=== PATIENT | female | born 1965 | race Caucasian/White ===

== ENCOUNTER 2020-08-04 11:34 | Inpatient (IN) ==
[2020-08-04] MEDS ORDERED: ONDANSETRON INJ 2 MG/ML 2 ML VIAL IV STA ×2 (12:53→15:43)
[2020-08-04] MEDS ORDERED: SODIUM CHLORIDE 0.9% 1000ML 1,000 ML IV STA (12:53)
[2020-08-04] MEDS ORDERED: HYDROmorphone INJ 0.5 MG/0.5 ML SYR IV STA (12:53)
[2020-08-04 13:22] LABS: Alanine Aminotransferase 67 U/L (12-78); Albumin Level 4.1 gm/dl (3.4-5.0); Aspartate Aminotransferase 54 U/L (15-37); Blood Urea Nitrogen 12 mg/dl (7-18); Calcium 9.7 mg/dl (8.5-10.1); Carbon Dioxide 25 mmol/L (21-32); Chloride 105 mmol/L (98-107); Creatinine Clr Calc Pharmacy 165.4 ml/min; Est GFR (African American) 131.7; Est GFR (Non-African American) 113.6; Glucose 119 mg/dl (70-99); Potassium 3.6 mmol/L (3.5-5.1); Sodium 138 mmol/L (136-145)
[2020-08-04 13:23] LABS: Basophils # (auto) 0.02 K/uL (0-0.2); Basophils % (auto) 0.1 %; Eosinophils # (auto) 0.01 K/uL (0-0.5); Eosinophils % (auto) 0.1 %; Hematocrit (blood only) 47.3 % (37-47); Hemoglobin 15.4 g/dL (12.0-16.0); Immature Granulocytes # (auto) 0.06 K/uL (0.00-0.02); Immature Granulocytes % (auto) 0.4 %; Lymphocytes # (auto) 1.36 K/uL (1.2-3.4); Lymphocytes % (auto) 9.7 %; Mean Corpuscular Hemoglobin 26.6 pg (25-34); Mean Corpuscular Hgb Conc 32.6 g/dL (32-36); Mean Corpuscular Volume 81.8 fL (80-100); Mean Platelet Volume 9.7 fL (7.4-10.4); Monocytes # (auto) 0.53 K/uL (0.11-0.59); Monocytes % (auto) 3.8 %; Neutrophils % (auto) 85.9 %; Platelet Count 364 K/uL (130-400); RDW Coefficient of Variation 15.7 % (11.5-14.5); RDW Standard Deviation 46.7 fL (36.4-46.3); Red Blood Count 5.78 M/uL (4.2-5.4); White Blood Count 13.98 K/uL (4.8-10.8)
[2020-08-04 13:27] LABS: Albumin Globulin Ratio 1.1 (0.9-2); Alkaline Phosphatase 117 U/L (45-117); Bilirubin,Total 0.7 mg/dl (0.2-1); Globulin 3.8 gm/dl (2.5-4.0); Lipase 5566 U/L (73-393); Total Protein 7.9 gm/dl (6.4-8.2); Troponin I < 0.015 ng/ml (0-0.045)
[2020-08-04 13:49] LABS: Appearance Urine Clear (Clear); Bacteria Urine Automated Negative (Negative); Blood Urine 1+ (Negative); Color Urine Dark Yellow; Epithelial Cell Urine Auto >30 /lpf (0-5); Glucose Urine UA Negative (Negative); Ketones Urine 3+ (Negative); Leukocyte Esterase Urine Negative (Negative); Nitrite Urine Negative (Negative); Protein Urine 1+ (Negative); Specific Gravity Urine 1.028 (1.000-1.030); Urobilinogen Urine Negative (Negative); pH Urine 5.5 (4.5-7.5)
[2020-08-04 13:59] LABS: Bilirubin Urine 1+ (Negative)
--- NOTE | 2020-08-04 15:17 | Ultrasound Report ---
ABDOMINAL ULTRASOUND, RIGHT UPPER QUADRANT HISTORY: Epigastric pain. COMPARISON: None. FINDINGS: Pancreas: The pancreas demonstrates a normal echotexture. Liver: The liver is echogenic consistent with fatty change. Gallbladder: A few tiny stones and trace pericholecystic fluid. No significant gallbladder wall thick ening. A sonographic Wren's sign was unable to be assessed due to the patient's recent pain medicat ion. CBD: 1 cm. Right kidney: No hydronephrosis. IMPRESSION: 1. A few tiny gallstones and trace pericholecystic fluid. However, no gallbladder wall thickening. Th erefore, these findings are indeterminate for acute cholecystitis. 2. Dilated common bile duct up to 1 cm. This raises the possibility of an obstructive process. Consid er ERCP, MRCP or nuclear medicine HIDA scan for further evaluation. 3. Mild hepatic steatosis. ACT 112: Negative or not required by law. Electronically signed by: Paul Arredondo M.D. 08/04/2020 3:15 PM
[2020-08-04] MEDS ORDERED: OPTIRAY 300 100mL IV ONE (15:50)
--- NOTE | 2020-08-04 16:05 | CT Scan Report ---
CT SCAN OF THE ABDOMEN AND PELVIS WITH IV CONTRAST CLINICAL HISTORY: Acute pancreatitis. COMPARISON STUDY: Abdominal ultrasound dated 08/04/2020. TECHNIQUE: Following the IV administration of 89 cc of Optiray 300, CT scan of the abdomen and pelvi s is performed from the lung bases to the proximal femora. Images are reviewed in the axial, sagittal , and coronal planes. IV contrast was administered without complication. A dose lowering technique wa s utilized adhering to the principles of ALARA. The examination is degraded by large body habitus, an d by streak artifact from the body wall abutting the CT gantry. CT DOSE: 1411.46 mGy.cm FINDINGS: Lung bases: The heart is normal in size and without pericardial effusion. The lung bases are clear no ting dependent atelectasis. There is a tiny hiatal hernia. Liver: The contrast-enhanced liver is enlarged, measuring 22.2 cm in length. There is no intrahepatic biliary ductal dilatation. The hepatic veins and portal veins are patent. Gallbladder: The gallbladder is distended. There are tiny calcified gallstones. The gallbladder wall is thickened and edematous, and there is associated pericholecystic inflammation. Spleen: Normal in size and attenuation. Pancreas: There is mild atrophy of the pancreas. The pancreas is edematous, with peripancreatic stran ding and fluid. The appearance is consistent with acute pancreatitis. The gland enhances throughout. The duct is normal in caliber. The splenic vein is patent. No organized peripancreatic fluid collecti on is identified. Adrenal glands: Unremarkable. Kidneys: The contrast enhanced kidneys are normal in size and without hydronephrosis. The kidneys enh ance symmetrically. Abdominal vasculature: The abdominal aorta is normal in course and caliber noting scattered foci of a therosclerotic calcification. Bowel: No bowel obstruction is seen. There is mild colonic diverticulosis without CT evidence of acut e diverticulitis. The appendix is well-visualized and normal. Peritoneum: There is no intraperitoneal free air or abdominal ascites. There is a small fat-containin g umbilical hernia. Lymphadenopathy: None. Pelvic viscera: The bladder, uterus, and adnexa are normal as visualized. Skeletal structures: Mild degenerative change is noted in the lumbar spine. No lytic or blastic lesio ns are seen. IMPRESSION: 1. Findings are consistent with acute pancreatitis. 2. The pancreas enhances throughout and no organized peripancreatic fluid collection is identified. 3. Cholelithiasis with evidence of acute cholecystitis. 4. Hepatomegaly. 5. Mild colonic diverticulosis without CT evidence of acute diverticulitis. 6. Additional findings as above. ACT 112: Negative or not required by law. Electronically signed by: Miguel Ángel Llanes M.D. 08/04/2020 4:04 PM
[2020-08-04 16:33] LABS: Influenza A virus by PCR Negative (Neg); Influenza B virus by PCR Negative (Neg); RSV by PCR Negative (Neg); SARS CoV2 RNA(COVID-19) InHosp NEGATIVE (Negative)
[2020-08-04] MEDS ORDERED: ONDANSETRON INJ 2 MG/ML 2 ML VIAL IV PRN (17:55)
[2020-08-04] MEDS: LACTATED RINGER'S 1,000 ML IV SCH (18:19)
[2020-08-04] MEDS ORDERED: HYDROmorphone INJ 0.5 MG/0.5 ML SYR IV PRN (18:40)
[2020-08-04] MEDS ORDERED: PROMETHAZINE HCL 12.5 MG in SODIUM CHLORIDE 0.9% 50 ML IV PRN (20:19)
--- NOTE | 2020-08-04 20:52 | History & Physical Report ---
Date of Service August 04, 2020 Assessment & Plan (1) Gallstone pancreatitis: -admit to med/surg -patient presenting from home with reports of epigastric abdominal pain -in the ED, lipase 5000 and imaging showing dilated CBD, cholelithiasis, pancreatitis -Likely gallstone pancreatitis; no history of heavy alcohol use, patient does have history of dyslipidemia with statin intolerance. Check triglycerides in the morning -Mild elevation in AST, otherwise LFTs unremarkable -MRCP -IVF, n.p.o. -Pain and nausea control -GI consult, case discussed with Dr. Grant -General surgery consult (2) Hypertension: -BP controlled, continue atenolol (3) Hyperlipidemia: -With history of statin intolerance -Continue Zetia and Vascepa (4) DVT prophylaxis: -SCDs in the event patient needs invasive procedure Admission and Anticipated Discharge Date Admission Date: August 04, 2020 History of Present Illness Chief Complaint: Abdominal pain Primary Care Provider: Clinton Avilez MD 54-year-old female with PMH HTN, dyslipidemia, statin intolerance, and other problems listed below who presents to the ED for evaluation abdominal pain. Patient reports she woke up around 2 AM and had epigastric discomfort. [place] like her symptoms were due to indigestion or possibly constipation. Patient reports she took a stool softener without much relief in her symptoms. Epigastric pain continued throughout the day and started to radiate through into her back. She rates the pain as a #8/10. Describes the pain as a burning sensation and constant. She reports associated nausea however no vomiting. Reports a normal bowel movement this morning. No bright bleeding per rectum or dark tarry stools. Denies fevers and chills. No lightheadedness, dizziness, diaphoresis, syncopal events. Denies urinary symptoms. In the ED, labs show WBC 13 K, AST 54, lipase 5000. Gallbladder ultrasound shows 1 cm dilated CBD and evidence of gallstones. CT ABD/pelvis shows findings of pancreatitis and cholelithiasis. Patient was given IV Dilaudid, IV Zofran, IVF. Allergies Allergy/AdvReac Type Severity Reaction Status Date / Time Yryxuyj-Bte-Aue Reductase AdvReac Mild Cramping Verified 08/04/20 13:48 Inhibitor of the Muscles Home Medications Medication Instructions Recorded Confirmed Type albuterol sulfate [ProAir HFA] 1 inh INHALATION QID PRN 12/18/19 08/04/20 History amoxicillin 2,000 mg PO UD 12/18/19 08/04/20 History aspirin 81 mg PO QAM 12/18/19 08/04/20 History atenolol 25 mg PO HS 12/18/19 08/04/20 History ezetimibe [Zetia] 10 mg PO QDD 12/18/19 08/04/20 History famotidine 40 mg PO BID PRN 12/18/19 08/04/20 History furosemide 20 mg PO QAM 12/18/19 08/04/20 History icosapent ethyl 2 g PO BID 12/18/19 08/04/20 History potassium chloride 10 meq PO BID 12/18/19 08/04/20 History Past Med/Surg History Medical History (Updated 08/10/20 @ 00:06 by Sana Osorio) Acute pancreatitis Cholelithiasis Gallstone pancreatitis GERD (gastroesophageal reflux disease) Hiatal hernia Morbid obesity Osteoarthritis Surgical History History of total bilateral knee replacement (TKR) Hx of section Family History Mother Heart disease Father Heart disease Social History Smoking Status: Never smoker Second Hand Exposure: No; Hx Alcohol Use: Yes Alcohol type: beer, wine and hard liquor Alcohol Intake Frequency: 2-4 x/Month Hx Substance Use: No Preferred Language: Zambian Communication Ability: Effective Welfare Officer Required: No Beliefs That Will Affect Care: None Current Living Situation: Spouse Feels Safe at Home: Yes Assistive Devices: None Review of Systems Review of Systems: ROS per HPI, all other systems reviewed and negative Physical Exam Constitutional: WD/WN, vitals as above + obese Eyes: PERRL, conjunctivae normal, anicteric sclerae ENMT: external ear and nose normal, oropharynx normal Respiratory: normal respiratory effort, lungs clear to auscultation Cardiovascular: Rate/Rhythm: regular rate and regular rhythm Vessels: normal peripheral pulses Extremities: no edema Gastrointestinal (Abdomen): normal bowel sounds, soft, nontender, no hepatosplenomegaly Musculoskeletal: no cyanosis or clubbing, extremities motor strength 5/5 Skin: no rashes, warm and dry Neurologic: PERRL, EOMI, accommodation nl, no face palsy, no dysarthria Psychiatric: A+Ox3, euthymic affect Results & Data Results & Data ([facility]) Vital Signs (Past 12 Hours) Vital Signs Temp Pulse Pulse Resp BP BP Pulse Ox 08/04/20 17:40 36.4 C L 92 H 20 163/90 H 94 08/04/20 17:20 88 18 166/99 H 100 08/04/20 15:30 79 18 91 08/04/20 15:26 79 17 179/109 H 93 08/04/20 15:06 79 20 08/04/20 14:00 81 17 161/93 H 92 08/04/20 13:30 80 21 178/95 H 95 08/04/20 13:26 79 22 176/102 H 95 08/04/20 13:25 96 08/04/20 13:24 80 21 176/102 H 95 08/04/20 11:48 36.7 C 80 18 177/89 H 96 Laboratory Results Short CBC 08/04/20 Range/Units 12:11 WBC 13.98 H (4.8-10.8) K/uL Hgb 15.4 (12.0-16.0) g/dL Hct 47.3 H (37-47) % Plt Count 364 (130-400) K/uL BMP 08/04/20 12:11 Sodium 138 Potassium 3.6 Chloride 105 Carbon Dioxide 25 BUN 12 Creatinine 0.44 L Glucose 119 H Calcium 9.7 Cardiac Enzymes 08/04/20 Range/Units 12:11 Troponin I < 0.015 (0-0.045) ng/ml Liver Function 08/04/20 Range/Units 12:11 Total Bilirubin 0.7 (0.2-1) mg/dl AST 54 H (15-37) U/L ALT 67 (12-78) U/L Alkaline Phosphatase 117 (45-117) U/L Albumin 4.1 (3.4-5.0) gm/dl Urine 08/04/20 Range/Units 13:27 Urine Color Dark Yellow Urine Appearance Clear (Clear) Urine pH 5.5 (4.5-7.5) Ur Specific Elizabeth 1.028 (1.000-1.030) Urine Protein 1+ H (Negative) Urine Glucose (UA) Negative (Negative) Diagnostic Findings Gallbladder Ultrasound 08/04/20 13:04 ABDOMINAL ULTRASOUND, RIGHT UPPER QUADRANT HISTORY: Epigastric pain. COMPARISON: None. FINDINGS: Pancreas: The pancreas demonstrates a normal echotexture. Liver: The liver is echogenic consistent with fatty change. Gallbladder: A few tiny stones and trace pericholecystic fluid. No significant gallbladder wall thickening. A sonographic Wren's sign was unable to be assessed due to the patient's recent pain medication. CBD: 1 cm. Right kidney: No hydronephrosis. IMPRESSION: 1. A few tiny gallstones and trace pericholecystic fluid. However, no gallbladder wall thickening. Therefore, these findings are indeterminate for acute cholecystitis. 2. Dilated common bile duct up to 1 cm. This raises the possibility of an obstructive process. Consider ERCP, MRCP or nuclear medicine HIDA scan for further evaluation. 3. Mild hepatic steatosis. ACT 112: Negative or not required by law. Electronically signed by: Paul Arredondo M.D. 08/04/2020 3:15 PM Abdomen/Pelvis CT 08/04/20 15:36 CT SCAN OF THE ABDOMEN AND PELVIS WITH IV CONTRAST CLINICAL HISTORY: Acute pancreatitis. COMPARISON STUDY: Abdominal ultrasound dated 08/04/2020. TECHNIQUE: Following the IV administration of 89 cc of Optiray 300, CT scan of the abdomen and pelvis is performed from the lung bases to the proximal femora. Images are reviewed in the axial, sagittal, and coronal planes. IV contrast was administered without complication. A dose lowering technique was utilized adhering to the principles of ALARA. The examination is degraded by large body habitus, and by streak artifact from the body wall abutting the CT gantry. CT DOSE: 1411.46 mGy.cm FINDINGS: Lung bases: The heart is normal in size and without pericardial effusion. The lung bases are clear noting dependent atelectasis. There is a tiny hiatal hernia. Liver: The contrast-enhanced liver is enlarged, measuring 22.2 cm in length. There is no intrahepatic biliary ductal dilatation. The hepatic veins and portal veins are patent. Gallbladder: The gallbladder is distended. There are tiny calcified gallstones. The gallbladder wall is thickened and edematous, and there is associated lisa cholecystic inflammation. Spleen: Normal in size and attenuation. Pancreas: There is mild atrophy of the pancreas. The pancreas is edematous, with peripancreatic stranding and fluid. The appearance is consistent with acute pancreatitis. The gland enhances throughout. The duct is normal in caliber. The splenic vein is patent. No organized peripancreatic fluid collection is identified. Adrenal glands: Unremarkable. Kidneys: The contrast enhanced kidneys are normal in size and without hydronephrosis. The kidneys enhance symmetrically. Abdominal vasculature: The abdominal aorta is normal in course and caliber noting scattered foci of atherosclerotic calcification. Bowel: No bowel obstruction is seen. There is mild colonic diverticulosis without CT evidence of acute diverticulitis. The appendix is well-visualized and normal. Peritoneum: There is no intraperitoneal free air or abdominal ascites. There is a small fat-containing umbilical hernia. Lymphadenopathy: None. Pelvic viscera: The bladder, uterus, and adnexa are normal as visualized. Skeletal structures: Mild degenerative change is noted in the lumbar spine. No lytic or blastic lesions are seen. IMPRESSION: 1. Findings are consistent with acute pancreatitis. 2. The pancreas enhances throughout and no organized peripancreatic fluid collection is identified. 3. Cholelithiasis with evidence of acute cholecystitis. 4. Hepatomegaly. 5. Mild colonic diverticulosis without CT evidence of acute diverticulitis. 6. Additional findings as above. ACT 112: Negative or not required by law. Electronically signed by: Miguel Ángel Llanes M.D. 08/04/2020 4:04 PM Code Status & VTE Plan VTE Prophylaxis Plan VTE Prophylaxis will be ordered: Yes Supervising Physician Co-Signing Physician Notes Pt was seen and examined. Agreed with Maday exam, assessment and plan. 54-year-old female with PMH HTN, dyslipidemia presents to the ED for evaluation abdominal pain. Pt said that this morning she workup with epigastric discomfort. she described the pain as a burning sensation, constant and radiating to her back, grade 8/10. Denies fevers and chills, lightheadedness, dizziness, diaphoresis, syncopal events. Denies urinary symptoms. labs on admission with WBC 13 K, AST 54, lipase 5000. Gallbladder ultrasound on admission showed 1 cm dilated CBD and evidence of gallstones and CT ABD/pelvis shows findings of pancreatitis and cholelithiasis. Will continue IVF. Will keep NPO for bowel rest. Will consult Gastro. Will repeat lipase in am. Will monitor electrolytes. Continue monitor closely. MD Joselyn
--- NOTE | 2020-08-04 20:54 | Surgery Consultation ---
Date of Consultation August 04, 2020 Assessment & Plan (1) Gallstone pancreatitis: pt is a 54 year-old female who was admitted to hospital for gallstone pancreatitis, IMP: gallstone pancreatitis, Plan, recommend conservative treatment first, npo, IV fluid, iv antibiotic, control pain, repeat all labs in morning, consult GI doctor for possible ERCP, I recommend to do laparoscopic cholecystectomy on Saturday once lipase close to normal, pancreatitis resolved, pt will think about the surgery, will F/U, Present on Admission?: Yes History of Present Illness Attending Physician: Danielle Alves MD CC: abdominal pain, HPI: pt is a 54 year-old female who was admitted to hospital for gallstone pancreatitis, pt has been acute abdominal pain for 1 day with nausea, vomiting, the pain is located at epigastric area and back, the pain about 5/10, pt denies fever, no chills, no diarrhea, pt had CT scan and U/S study diagnosis- gallstone pancreatitis, Allergies Allergy/AdvReac Type Severity Reaction Status Date / Time Iwwmjpn-Qfy-Yin Reductase AdvReac Mild Cramping Verified 08/04/20 13:48 Inhibitor of the Muscles Home Medications Medication Instructions Recorded Confirmed Type albuterol sulfate [ProAir HFA] 1 inh INHALATION QID PRN 12/18/19 08/04/20 History amoxicillin 2,000 mg PO UD 12/18/19 08/04/20 History aspirin 81 mg PO QAM 12/18/19 08/04/20 History atenolol 25 mg PO HS 12/18/19 08/04/20 History ezetimibe [Zetia] 10 mg PO QDD 12/18/19 08/04/20 History famotidine 40 mg PO BID PRN 12/18/19 08/04/20 History furosemide 20 mg PO QAM 12/18/19 08/04/20 History icosapent ethyl 2 g PO BID 12/18/19 08/04/20 History potassium chloride 10 meq PO BID 12/18/19 08/04/20 History Patient History Medical History GERD (gastroesophageal reflux disease) Hiatal hernia Hyperlipidemia Hypertension Morbid obesity Osteoarthritis Surgical History History of total bilateral knee replacement (TKR) Hx of section Family History (Updated 08/04/20 @ 20:46 by DOUG Watson) Mother Heart disease Father Heart disease Social History (Updated 08/04/20 @ 20:47 by DOUG Watson) Smoking Status: Never smoker Second Hand Exposure: No; Do You Dip or Chew Tobacco: No; Tobacco Cessation Education Requested by Patient: No Hx Alcohol Use: Yes Alcohol type: beer, wine and hard liquor Alcohol Intake Frequency: 2-4 x/Month Hx Substance Use: No Preferred Language: Persian Communication Ability: Effective Application Lead Required: No Beliefs That Will Affect Care: None Current Living Situation: Spouse Other Information That Helps Us Care for You: No Feels Safe at Home: Yes Safety Concerns: Feels Safe At This Time Assistive Devices: Glasses Review of Systems Review of Systems: All systems reviewed & are unremarkable except as noted in HPI & below Constitutional: obesity Eyes: as per Subjective / HPI Ear, Nose, Mouth, Throat: as per Subjective / HPI Respiratory: as per Subjective / HPI Cardiovascular: as per Subjective / HPI Additional Comments: HTN Gastrointestinal: as per Subjective / HPI GERD, hiatal hernia Genitourinary: as per Subjective / HPI Musculoskeletal: as per Subjective / HPI Integumentary: as per Subjective / HPI Neurologic: as per Subjective / HPI Psychiatric: as per Subjective / HPI Endocrine: as per Subjective / HPI Hematologic / Lymphatic: as per Subjective / HPI Physical Exam Constitutional: WD/WN, vitals as above well developed and well nourished Eyes: PERRL, conjunctivae normal, anicteric sclerae ENMT: external ear and nose normal, oropharynx normal Neck: trachea midline, no thyromegaly Respiratory: normal respiratory effort, lungs clear to auscultation normal respiratory effort Cardiovascular: RRR, no murmur, no edema Rate/Rhythm: regular rate and regular rhythm Gastrointestinal (Abdomen): Percussion/Palpation: abdomen soft mild tenderness at epigastric and RUQ area, no rebound pain, no distend, Musculoskeletal: no cyanosis or clubbing, extremities motor strength 5/5 Skin: no rashes, warm and dry Neurologic: awake Psychiatric: Orientation: alert and oriented x 3 Results & Data ([facility]) Vital Signs (Past 12 Hours) Vital Signs Temp Pulse Pulse Resp BP BP Pulse Ox 08/04/20 17:40 36.4 C L 92 H 20 163/90 H 94 08/04/20 17:20 88 18 166/99 H 100 08/04/20 15:30 79 18 91 08/04/20 15:26 79 17 179/109 H 93 08/04/20 15:06 79 20 08/04/20 14:00 81 17 161/93 H 92 08/04/20 13:30 80 21 178/95 H 95 08/04/20 13:26 79 22 176/102 H 95 08/04/20 13:25 96 08/04/20 13:24 80 21 176/102 H 95 08/04/20 11:48 36.7 C 80 18 177/89 H 96 Laboratory Results Abnormal lab results 08/04/20 08/04/20 08/04/20 Range/Units 12:11 12:11 13:27 WBC 13.98 H (4.8-10.8) K/uL RBC 5.78 H (4.2-5.4) M/uL Hct 47.3 H (37-47) % RDW Std Deviation 46.7 H (36.4-46.3) fL RDW Coeff of Ce 15.7 H (11.5-14.5) % Neut # (Auto) 12.00 H (1.4-6.5) K/uL Immature Gran # (Auto) 0.06 H (0.00-0.02) K/uL Creatinine 0.44 L (0.6-1.2) mg/dl BUN/Creatinine Ratio 27.0 H (10-20) Glucose 119 H (70-99) mg/dl AST 54 H (15-37) U/L Lipase 5566 H (73-393) U/L Urine Protein 1+ H (Negative) Urine Ketones 3+ H (Negative) Urine Blood 1+ H (Negative) Urine Bilirubin 1+ H (Negative) Urine RBC (Auto) 10-30 H (0-4) /hpf U Epithel Cells (Auto) >30 H (0-5) /lpf Diagnostic Findings CT SCAN OF THE ABDOMEN AND PELVIS WITH IV CONTRAST CLINICAL HISTORY: Acute pancreatitis. COMPARISON STUDY: Abdominal ultrasound dated 08/04/2020. TECHNIQUE: Following the IV administration of 89 cc of Optiray 300, CT scan of the abdomen and pelvis is performed from the lung bases to the proximal femora. Images are reviewed in the axial, sagittal, and coronal planes. IV contrast was administered without complication. A dose lowering technique was utilized adhering to the principles of ALARA. The examination is degraded by large body habitus, and by streak artifact from the body wall abutting the CT gantry. CT DOSE: 1411.46 mGy.cm FINDINGS: Lung bases: The heart is normal in size and without pericardial effusion. The lung bases are clear noting dependent atelectasis. There is a tiny hiatal hernia. Liver: The contrast-enhanced liver is enlarged, measuring 22.2 cm in length. There is no intrahepatic biliary ductal dilatation. The hepatic veins and portal veins are patent. Gallbladder: The gallbladder is distended. There are tiny calcified gallstones. The gallbladder wall is thickened and edematous, and there is associated pericholecystic inflammation. Spleen: Normal in size and attenuation. Pancreas: There is mild atrophy of the pancreas. The pancreas is edematous, with peripancreatic stranding and fluid. The appearance is consistent with acute pancreatitis. The gland enhances throughout. The duct is normal in caliber. The splenic vein is patent. No organized peripancreatic fluid collection is identified. Adrenal glands: Unremarkable. Kidneys: The contrast enhanced kidneys are normal in size and without hyd ronephrosis. The kidneys enhance symmetrically. Abdominal vasculature: The abdominal aorta is normal in course and caliber noting scattered foci of atherosclerotic calcification. Bowel: No bowel obstruction is seen. There is mild colonic diverticulosis without CT evidence of acute diverticulitis. The appendix is well-visualized and normal. Peritoneum: There is no intraperitoneal free air or abdominal ascites. There is a small fat-containing umbilical hernia. Lymphadenopathy: None. Pelvic viscera: The bladder, uterus, and adnexa are normal as visualized. Skeletal structures: Mild degenerative change is noted in the lumbar spine. No lytic or blastic lesions are seen. IMPRESSION: 1. Findings are consistent with acute pancreatitis. 2. The pancreas enhances throughout and no organized peripancreatic fluid collection is identified. 3. Cholelithiasis with evidence of acute cholecystitis. 4. Hepatomegaly. 5. Mild colonic diverticulosis without CT evidence of acute diverticulitis. 6. Additional findings as above. ABDOMINAL ULTRASOUND, RIGHT UPPER QUADRANT HISTORY: Epigastric pain. COMPARISON: None. FINDINGS: Pancreas: The pancreas demonstrates a normal echotexture. Liver: The liver is echogenic consistent with fatty change. Gallbladder: A few tiny stones and trace pericholecystic fluid. No significant gallbladder wall thickening. A sonographic Wren's sign was unable to be assessed due to the patient's recent pain medication. CBD: 1 cm. Right kidney: No hydronephrosis. IMPRESSION: 1. A few tiny gallstones and trace pericholecystic fluid. However, no gallbl adder wall thickening. Therefore, these findings are indeterminate for acute cholecystitis. 2. Dilated common bile duct up to 1 cm. This raises the possibility of an obstructive process. Consider ERCP, MRCP or nuclear medicine HIDA scan for further evaluation. 3. Mild hepatic steatosis.
[2020-08-04] MEDS ORDERED: ICOSAPENT ETHYL 1 GM PO SCH (21:00)
[2020-08-04] MEDS: ATENOLOL 25 MG TABLET PO SCH (21:02)
--- NOTE | 2020-08-04 21:23 | Emergency Department Note ---
History of Present Illness General Chief complaint: GI Assessment Stated complaint: SEVERE UPPER ABD PAIN INTO BACK,NAUSEA Time Seen by Provider: 08/04/20 12:14 Source: patient Mode of arrival: ambulatory Limitations: no limitations History of Present Illness Provider complaint: Upper belly pain into back Maximum Pain Intensity: 5 This pt is a 54 yo female who presents to the ED with c/o epigastric abd pain that radiates through to her back. Pain began before bed last night, she took pepcid thinking it was her hiatal hernia. At 0200 pt woke up in significant pain, had several BMs thinking it must be constipation. Pt is on a keto diet, ate a low carb, high fat/protein dinner last night. She has lost 23 lbs in last 4 months. She denies fevers, diarrhea, vomiting, but admits to nausea. Denies h/o surgery on abdomen. Home Medications Medication Instructions Recorded Confirmed Type albuterol sulfate [ProAir HFA] 1 inh INHALATION QID PRN 12/18/19 08/04/20 History amoxicillin 2,000 mg PO UD 12/18/19 08/04/20 History aspirin 81 mg PO QAM 12/18/19 08/04/20 History atenolol 25 mg PO HS 12/18/19 08/04/20 History ezetimibe [Zetia] 10 mg PO QDD 12/18/19 08/04/20 History famotidine 40 mg PO BID PRN 12/18/19 08/04/20 History furosemide 20 mg PO QAM 12/18/19 08/04/20 History icosapent ethyl 2 g PO BID 12/18/19 08/04/20 History potassium chloride 10 meq PO BID 12/18/19 08/04/20 History Allergies Allergy/AdvReac Type Severity Reaction Status Date / Time Tvdhpmk-Djn-Yce Reductase AdvReac Mild Cramping Verified 08/04/20 13:48 Inhibitor of the Muscles Past Med/Surg History Medical History GERD (gastroesophageal reflux disease) Hiatal hernia Hyperlipidemia Hypertension Morbid obesity Osteoarthritis Surgical History History of total bilateral knee replacement (TKR) Hx of section Family History Mother Heart disease Father Heart disease Social History Smoking Status: Never smoker Second Hand Exposure: No; Do You Dip or Chew Tobacco: No; Tobacco Cessation Education Requested by Patient: No Hx Alcohol Use: Yes Alcohol type: beer, wine and hard liquor Alcohol Intake Frequency: 2-4 x/Month Hx Substance Use: No Preferred Language: Libyan Communication Ability: Effective Winter Sports Manager Required: No Beliefs That Will Affect Care: None Current Living Situation: Spouse Other Information That Helps Us Care for You: No Feels Safe at Home: Yes Safety Concerns: Feels Safe At This Time Assistive Devices: None Review of Systems See HPI for pertinent positives & negatives. and A total of 10 systems reviewed and were otherwise negative Physical Exam Vital Signs Vital Signs - 24 hr 08/04/20 11:48 08/04/20 13:24 08/04/20 13:25 Temperature 36.7 C Temperature Source Temporal Artery Scan Pulse Rate 80 80 Pulse Rate [Apical] Pulse Rate from SpO2 Sensor 80 Pulse Rhythm [Apical] Respiratory Rate 18 21 Respiratory Effort / Characteristics Non-Labored Spontaneous Respiratory Depth Normal Respiratory Pattern Regular Blood Pressure 177/89 H 176/102 H Blood Pressure [Left Arm] Blood Pressure Mean 118 126 Blood Pressure Mean [Left Arm] Blood Pressure Position Sitting Blood Pressure Position [Left Arm] Pulse Oximetry 96 95 96 Oxygen Delivery Method Room Air Room Air Sepsis Recent Fever Within 48 Hours No Sepsis New/Unexplained Change in Mental Status N/A Sepsis Action Taken by Nursing No Action Required 08/04/20 13:26 08/04/20 13:30 08/04/20 14:00 Temperature Temperature Source Pulse Rate 80 81 Pulse Rate [Apical] 79 Pulse Rate from SpO2 Sensor 79 81 Pulse Rhythm [Apical] Regular Respiratory Rate 22 21 17 Respiratory Effort / Characteristics Non-Labored Spontaneous Respiratory Depth Normal Respiratory Pattern Blood Pressure 178/95 H 161/93 H Blood Pressure [Left Arm] 176/102 H Blood Pressure Mean 122 115 Blood Pressure Mean [Left Arm] 126 Blood Pressure Position Blood Pressure Position [Left Arm] Lying Pulse Oximetry 95 95 92 Oxygen Delivery Method Room Air Sepsis Recent Fever Within 48 Hours Sepsis New/Unexplained Change in Mental Status Sepsis Action Taken by Nursing 08/04/20 15:06 08/04/20 15:26 08/04/20 15:30 Temperature Temperature Source Pulse Rate 79 79 79 Pulse Rate [Apical] Pulse Rate from SpO2 Sensor 80 80 Pulse Rhythm [Apical] Respiratory Rate 20 17 18 Respiratory Effort / Characteristics Respiratory Depth Respiratory Pattern Blood Pressure 179/109 H Blood Pressure [Left Arm] Blood Pressure Mean 132 Blood Pressure Mean [Left Arm] Blood Pressure Position Blood Pressure Position [Left Arm] Pulse Oximetry 93 91 Oxygen Delivery Method Sepsis Recent Fever Within 48 Hours Sepsis New/Unexplained Change in Mental Status Sepsis Action Taken by Nursing Vital signs reviewed. General: Well-appearing 54 yo female, in some discomfort, but in no significant distress. HEENT: No scleral icterus, PERRLA, neck supple. Atraumatic. Cardiovascular: Regular rate and rhythm, no extra sounds. Pulmonary: Clear to auscultation bilaterally, normal work of breathing. Abdomen: Soft, obese, tender to epigastric and RUQ, nondistended, positive bowel sounds. Minimal tympany to percussion. Musculoskeletal: Atraumatic, no peripheral edema. Neurologic: Patient awake alert and oriented x 3 Skin: Warm, dry, no rash Course Administered Medications Acetaminophen (Acetaminophen 325 Mg Tab) 650 mg PO Q4H PRN PRN Reason: pain/fever Stop: 09/03/20 17:54 Last Admin: 08/07/20 08:43 Dose: 650 mg Documented by: [id number] Admin: 08/06/20 15:58 Dose: 650 mg Documented by: [id number] Admin: 08/06/20 08:17 Dose: 650 mg Documented by: [id number] Admin: 08/05/20 23:59 Dose: 650 mg Documented by: [id number] Admin: 08/05/20 15:48 Dose: 650 mg Documented by: [id number] Admin: 08/05/20 07:36 Dose: 650 mg Documented by: [id number] Aspirin (Aspirin 81 Mg Ectab) 81 mg PO [facility] Stop: 09/04/20 08:59 Last Admin: 08/07/20 08:44 Dose: 81 mg Documented by: [id number] Admin: 08/06/20 08:17 Dose: 81 mg Documented by: [id number] Admin: 08/05/20 07:36 Dose: 81 mg Documented by: [id number] Atenolol (Atenolol 25 Mg Tablet) 25 mg PO [facility] Stop: 09/03/20 20:59 Last Admin: 08/06/20 22:12 Dose: 25 mg Documented by: [id number] Admin: 08/05/20 20:11 Dose: 25 mg Documented by: [id number] Admin: 08/04/20 21:02 Dose: 25 mg Documented by: [id number] Ezetimibe (Ezetimibe 10 Mg Tablet) 10 mg PO QDD [facility] Stop: 09/04/20 16:29 Last Admin: 08/06/20 16:27 Dose: 10 mg Documented by: [id number] Admin: 08/05/20 17:36 Dose: 10 mg Documented by: [id number] Heparin Sodium (Porcine) (Heparin Sod 5,000 Unit/0.5 Ml Vial) 5,000 units SQ Q8 [facility] Stop: 08/07/20 20:00 Last Admin: 08/07/20 13:43 Dose: 5,000 units Documented by: [id number] Admin: 08/07/20 06:06 Dose: 5,000 units Documented by: [id number] Admin: 08/06/20 22:13 Dose: 5,000 units Documented by: [id number] Admin: 08/06/20 11:16 Dose: 5,000 units Documented by: [id number] Hydromorphone HCl (Hydromorphone Inj 0.5 Mg/0.5 Ml Syr) 0.5 mg IV Q4H PRN PRN Reason: pain Stop: 08/18/20 18:39 Last Admin: 08/05/20 00:33 Dose: 0.5 mg Documented by: [id number] Lactated Ringer's (Lr) 1,000 mls @ 70 mls/hr IV .[id number] [facility] Stop: 09/03/20 18:14 Last Admin: 08/07/20 08:43 Dose: 70 mls/hr Documented by: [id number] Infusion: 08/07/20 08:43 Dose: 70 mls/hr Documented by: [id number] Admin: 08/07/20 03:38 Dose: 70 mls/hr Documented by: [id number] Infusion: 08/07/20 03:38 Dose: 70 mls/hr Documented by: [id number] Admin: 08/06/20 14:00 Dose: 70 mls/hr Documented by: [id number] Infusion: 08/06/20 12:21 Dose: 0 mls/hr Documented by: [id number] Admin: 08/06/20 02:21 Dose: 100 mls/hr Documented by: [id number] Infusion: 08/06/20 02:21 Dose: 100 mls/hr Documented by: [id number] Infusion: 08/05/20 20:03 Dose: 100 mls/hr Documented by: [id number] Admin: 08/05/20 17:37 Dose: 150 mls/hr Documented by: [id number] Infusion: 08/05/20 17:37 Dose: 150 mls/hr Documented by: [id number] Infusion: 08/05/20 12:00 Dose: 150 mls/hr Documented by: [id number] Infusion: 08/05/20 11:01 Dose: 0 mls/hr Documented by: [id number] Admin: 08/05/20 10:32 Dose: 200 mls/hr Documented by: [id number] Infusion: 08/05/20 10:32 Dose: 200 mls/hr Documented by: [id number] Admin: 08/05/20 05:32 Dose: 200 mls/hr Documented by: [id number] Infusion: 08/05/20 05:32 Dose: 200 mls/hr Documented by: [id number] Admin: 08/05/20 00:32 Dose: 200 mls/hr Documented by: [id number] Infusion: 08/04/20 23:19 Dose: 200 mls/hr Documented by: [id number] Admin: 08/04/20 18:19 Dose: 200 mls/hr Documented by: [id number] Promethazine HCl 12.5 mg/ (Sodium Chloride) 50.5 mls @ 202 mls/hr IV Q6H PRN PRN Reason: Nausea And Vomiting Stop: 09/03/20 20:18 Last Infusion: 08/04/20 21:59 Dose: 0 mls/hr Documented by: [id number] Admin: 08/04/20 21:03 Dose: 202 mls/hr Documented by: [id number] Piperacillin Sod/Tazobactam (Sod 4.5 gm/ Dextrose) 120 mls @ 30 mls/hr IV Q8H [facility]; Protocol Stop: 08/15/20 15:59 Last Infusion: 08/07/20 14:35 Dose: 0 mls/hr Documented by: [id number] Admin: 08/07/20 08:42 Dose: 30 mls/hr Documented by: [id number] Infusion: 08/07/20 04:40 Dose: 0 mls/hr Documented by: [id number] Admin: 08/07/20 00:18 Dose: 30 mls/hr Documented by: [id number] Infusion: 08/06/20 20:09 Dose: 0 mls/hr Documented by: [id number] Admin: 08/06/20 15:58 Dose: 30 mls/hr Documented by: [id number] Infusion: 08/06/20 12:31 Dose: 0 mls/hr Documented by: [id number] Admin: 08/06/20 08:18 Dose: 30 mls/hr Documented by: [id number] Infusion: 08/06/20 03:54 Dose: 0 mls/hr Documented by: [id number] Admin: 08/05/20 23:47 Dose: 30 mls/hr Documented by: [id number] Infusion: 08/05/20 20:04 Dose: 0 mls/hr Documented by: [id number] Admin: 08/05/20 15:50 Dose: 30 mls/hr Documented by: [id number] Ketorolac Tromethamine (Ketorolac Tromethamine 15 Mg/Ml Vial) 15 mg IV Q6H PRN PRN Reason: Pain Stop: 08/11/20 09:23 Last Admin: 08/07/20 14:40 Dose: 15 mg Documented by: [id number] Admin: 08/07/20 04:26 Dose: 15 mg Documented by: [id number] Admin: 08/06/20 18:18 Dose: 15 mg Documented by: [id number] Admin: 08/06/20 10:46 Dose: 15 mg Documented by: [id number] Miscellaneous (Icosapent Ethyl -- Order Awaiting Action) 1 ea N/A QS [facility]EN[facility]ICK Stop: 09/04/20 00:00 Last Admin: 08/07/20 08:27 Dose: Not Given Documented by: [id number] Admin: 08/07/20 01:12 Dose: Not Given Documented by: [id number] Admin: 08/06/20 15:42 Dose: Not Given Documented by: [id number] Admin: 08/06/20 11:51 Dose: Not Given Documented by: [id number] Admin: 08/06/20 00:02 Dose: Not Given Documented by: [id number] Admin: 08/05/20 15:49 Dose: Not Given Documented by: [id number] Admin: 08/05/20 07:34 Dose: Not Given Documented by: [id number] Admin: 08/05/20 00:33 Dose: Not Given Documented by: [id number] Ondansetron HCl (Ondansetron Inj 2 Mg/Ml 2 Ml Vial) 4 mg IV Q4H PRN PRN Reason: Nausea Stop: 09/03/20 18:39 Last Admin: 08/07/20 14:42 Dose: 4 mg Documented by: [id number] Admin: 08/07/20 04:28 Dose: 4 mg Documented by: [id number] Admin: 08/06/20 18:17 Dose: 4 mg Documented by: [id number] Admin: 08/06/20 08:17 Dose: 4 mg Documented by: [id number] Admin: 08/05/20 00:33 Dose: 4 mg Documented by: [id number] Discontinued Medications Hydromorphone HCl (Hydromorphone Inj 0.5 Mg/0.5 Ml Syr) 0.5 mg IV NOW STA Stop: 08/04/20 12:54 Last Admin: 08/04/20 13:44 Dose: 0.5 mg Documented by: [id number] Sodium Chloride (Nss 1000ml) 1,000 mls @ 125 mls/hr IV .Q8H STA Stop: 08/04/20 20:52 Last Infusion: 08/04/20 17:57 Dose: 0 mls/hr Documented by: [id number] Admin: 08/04/20 13:43 Dose: 125 mls/hr Documented by: [id number] Piperacillin Sod/Tazobactam (Sod 4.5 gm/ Dextrose) 120 mls @ 200 mls/hr IV NOW ONE; Protocol Stop: 08/05/20 10:50 Last Infusion: 08/05/20 11:55 Dose: 0 mls/hr Documented by: [id number] Admin: 08/05/20 11:01 Dose: 200 mls/hr Documented by: [id number] Ioversol (Optiray 300 100ml) 89 ml IV ONCE ONE Stop: 08/04/20 15:51 Last Admin: 08/04/20 15:51 Dose: 89 ml Documented by: [id number] Ondansetron HCl (Ondansetron Inj 2 Mg/Ml 2 Ml Vial) 4 mg IV NOW STA Stop: 08/04/20 12:54 Last Admin: 08/04/20 13:44 Dose: 4 mg Documented by: [id number] Ondansetron HCl (Ondansetron Inj 2 Mg/Ml 2 Ml Vial) 4 mg IV NOW STA Stop: 08/04/20 15:44 Last Admin: 08/04/20 15:47 Dose: 4 mg Documented by: [id number] Potassium Chloride (Potassium Chloride Crtab 20 Meq Tabcr) 40 meq PO NOW STA Stop: 08/05/20 10:08 Last Admin: 08/05/20 10:33 Dose: 40 meq Documented by: [id number] Potassium Chloride (Potassium Chloride 10 Meq Tabcr) 10 meq PO NOW STA Stop: 08/06/20 09:01 Last Admin: 08/06/20 11:15 Dose: 10 meq Documented by: [id number] Potassium Chloride (Potassium Chloride Crtab 20 Meq Tabcr) 20 meq PO NOW STA Stop: 08/06/20 09:01 Last Admin: 08/06/20 11:15 Dose: 20 meq Documented by: [id number] Potassium Chloride (Potassium Chloride Crtab 20 Meq Tabcr) 20 meq PO ONE ONE Stop: 08/07/20 10:16 Last Admin: 08/07/20 10:16 Dose: 20 meq Documented by: [id number] Medical Decision Making Differential Diagnosis Appendicitis, ovarian cyst, ovarian torsion, PID, infections, diverticulitis, UTI, obstruction, mesenteric ischemia, aortic pathology, inflammatory bowel disease, renal colic, PUD, pancreatitis, biliary pathology, hernia, volvulus, constipation, as well as other pathologies. Medical Records Attestation: I reviewed the patient's medical records. Home Medications Current Medication List: was personally reviewed by me Laboratory Data Attestation: I reviewed the patient's lab results. Result diagrams: 08/07/20 06:36 08/07/20 06:36 Lab Results 08/04/20 08/04/20 08/04/20 Range/Units 12:11 12:11 12:11 WBC 13.98 H (4.8-10.8) K/uL RBC 5.78 H (4.2-5.4) M/uL Hgb 15.4 (12.0-16.0) g/dL Hct 47.3 H (37-47) % MCV 81.8 (80-100) fL MCH 26.6 (25-34) pg MCHC 32.6 (32-36) g/dL RDW Std Deviation 46.7 H (36.4-46.3) fL RDW Coeff of Ce 15.7 H (11.5-14.5) % Plt Count 364 (130-400) K/uL MPV 9.7 (7.4-10.4) fL Immature Gran % (Auto) 0.4 % Neut % (Auto) 85.9 % Lymph % (Auto) 9.7 % Ritchie % (Auto) 3.8 % Eos % (Auto) 0.1 % Baso % (Auto) 0.1 % Neut # (Auto) 12.00 H (1.4-6.5) K/uL Lymph # (Auto) 1.36 (1.2-3.4) K/uL Ritchie # (Auto) 0.53 (0.11-0.59) K/uL Eos # (Auto) 0.01 (0-0.5) K/uL Baso # (Auto) 0.02 (0-0.2) K/uL Immature Gran # (Auto) 0.06 H (0.00-0.02) K/uL PT Cancelled INR Cancelled Sodium 138 (136-145) mmol/L Potassium 3.6 (3.5-5.1) mmol/L Chloride 105 (98-107) mmol/L Carbon Dioxide 25 (21-32) mmol/L Anion Gap 8.0 (3-11) BUN 12 (7-18) mg/dl Creatinine 0.44 L (0.6-1.2) mg/dl Est Cr Clr Drug Dosing 165.4 ml/min Est GFR ( Amer) 131.7 Est GFR (Non-Af Amer) 113.6 BUN/Creatinine Ratio 27.0 H (10-20) Glucose 119 H (70-99) mg/dl Lactate (0.4-2.0) mmol/L Calcium 9.7 (8.5-10.1) mg/dl Total Bilirubin 0.7 (0.2-1) mg/dl AST 54 H (15-37) U/L ALT 67 (12-78) U/L Alkaline Phosphatase 117 (45-117) U/L Troponin I < 0.015 (0-0.045) ng/ml Total Protein 7.9 (6.4-8.2) gm/dl Albumin 4.1 (3.4-5.0) gm/dl Globulin 3.8 (2.5-4.0) gm/dl Albumin/Globulin Ratio 1.1 (0.9-2) Lipase 5566 H (73-393) U/L Urine Color Urine Appearance (Clear) Urine pH (4.5-7.5) Ur Specific Haslet (1.000-1.030) Urine Protein (Negative) Urine Glucose (UA) (Negative) Urine Ketones (Negative) Urine Blood (Negative) Urine Nitrite (Negative) Urine Bilirubin (Negative) Urine Urobilinogen (Negative) Ur Leukocyte Esterase (Negative) Urine WBC (Auto) (0-5) /hpf Urine RBC (Auto) (0-4) /hpf U Hyaline Cast (Auto) (0-5) /lpf U Epithel Cells (Auto) (0-5) /lpf Urine Bacteria (Auto) (Negative) COVID-19 Eval Order SARS-CoV-2 (PCR) (Negative) Influenza Type A (PCR) (Neg) Influenza Type B (PCR) (Neg) RSV (RT-PCR) (Neg) 08/04/20 08/04/20 08/04/20 Range/Units 13:27 13:35 15:31 WBC (4.8-10.8) K/uL RBC (4.2-5.4) M/uL Hgb (12.0-16.0) g/dL Hct (37-47) % MCV (80-100) fL MCH (25-34) pg MCHC (32-36) g/dL RDW Std Deviation (36.4-46.3) fL RDW Coeff of Ce (11.5-14.5) % Plt Count (130-400) K/uL MPV (7.4-10.4) fL Immature Gran % (Auto) % Neut % (Auto) % Lymph % (Auto) % Ritchie % (Auto) % Eos % (Auto) % Baso % (Auto) % Neut # (Auto) (1.4-6.5) K/uL Lymph # (Auto) (1.2-3.4) K/uL Ritchie # (Auto) (0.11-0.59) K/uL Eos # (Auto) (0-0.5) K/uL Baso # (Auto) (0-0.2) K/uL Immature Gran # (Auto) (0.00-0.02) K/uL PT INR Sodium (136-145) mmol/L Potassium (3.5-5.1) mmol/L Chloride (98-107) mmol/L Carbon Dioxide (21-32) mmol/L Anion Gap (3-11) BUN (7-18) mg/dl Creatinine (0.6-1.2) mg/dl Est Cr Clr Drug Dosing ml/min Est GFR ( Amer) Est GFR (Non-Af Amer) BUN/Creatinine Ratio (10-20) Glucose (70-99) mg/dl Lactate 1.5 (0.4-2.0) mmol/L Calcium (8.5-10.1) mg/dl Total Bilirubin (0.2-1) mg/dl AST (15-37) U/L ALT (12-78) U/L Alkaline Phosphatase (45-117) U/L Troponin I (0-0.045) ng/ml Total Protein (6.4-8.2) gm/dl Albumin (3.4-5.0) gm/dl Globulin (2.5-4.0) gm/dl Albumin/Globulin Ratio (0.9-2) Lipase (73-393) U/L Urine Color Dark Yellow Urine Appearance Clear (Clear) Urine pH 5.5 (4.5-7.5) Ur Specific Haslet 1.028 (1.000-1.030) Urine Protein 1+ H (Negative) Urine Glucose (UA) Negative (Negative) Urine Ketones 3+ H (Negative) Urine Blood 1+ H (Negative) Urine Nitrite Negative (Negative) Urine Bilirubin 1+ H (Negative) Urine Urobilinogen Negative (Negative) Ur Leukocyte Esterase Negative (Negative) Urine WBC (Auto) 1-5 (0-5) /hpf Urine RBC (Auto) 10-30 H (0-4) /hpf U Hyaline Cast (Auto) 1-5 (0-5) /lpf U Epithel Cells (Auto) >30 H (0-5) /lpf Urine Bacteria (Auto) Negative (Negative) COVID-19 Eval Order CovFluRsv at [facility] SARS-CoV-2 (PCR) (Negative) Influenza Type A (PCR) (Neg) Influenza Type B (PCR) (Neg) RSV (RT-PCR) (Neg) 08/04/20 Range/Units 15:31 WBC (4.8-10.8) K/uL RBC (4.2-5.4) M/uL Hgb (12.0-16.0) g/dL Hct (37-47) % MCV (80-100) fL MCH (25-34) pg MCHC (32-36) g/dL RDW Std Deviation (36.4-46.3) fL RDW Coeff of Ce (11.5-14.5) % Plt Count (130-400) K/uL MPV (7.4-10.4) fL Immature Gran % (Auto) % Neut % (Auto) % Lymph % (Auto) % Ritchie % (Auto) % Eos % (Auto) % Baso % (Auto) % Neut # (Auto) (1.4-6.5) K/uL Lymph # (Auto) (1.2-3.4) K/uL Ritchie # (Auto) (0.11-0.59) K/uL Eos # (Auto) (0-0.5) K/uL Baso # (Auto) (0-0.2) K/uL Immature Gran # (Auto) (0.00-0.02) K/uL PT INR Sodium (136-145) mmol/L Potassium (3.5-5.1) mmol/L Chloride (98-107) mmol/L Carbon Dioxide (21-32) mmol/L Anion Gap (3-11) BUN (7-18) mg/dl Creatinine (0.6-1.2) mg/dl Est Cr Clr Drug Dosing ml/min Est GFR ( Amer) Est GFR (Non-Af Amer) BUN/Creatinine Ratio (10-20) Glucose (70-99) mg/dl Lactate (0.4-2.0) mmol/L Calcium (8.5-10.1) mg/dl Total Bilirubin (0.2-1) mg/dl AST (15-37) U/L ALT (12-78) U/L Alkaline Phosphatase (45-117) U/L Troponin I (0-0.045) ng/ml Total Protein (6.4-8.2) gm/dl Albumin (3.4-5.0) gm/dl Globulin (2.5-4.0) gm/dl Albumin/Globulin Ratio (0.9-2) Lipase (73-393) U/L Urine Color Urine Appearance (Clear) Urine pH (4.5-7.5) Ur Specific Haslet (1.000-1.030) Urine Protein (Negative) Urine Glucose (UA) (Negative) Urine Ketones (Negative) Urine Blood (Negative) Urine Nitrite (Negative) Urine Bilirubin (Negative) Urine Urobilinogen (Negative) Ur Leukocyte Esterase (Negative) Urine WBC (Auto) (0-5) /hpf Urine RBC (Auto) (0-4) /hpf U Hyaline Cast (Auto) (0-5) /lpf U Epithel Cells (Auto) (0-5) /lpf Urine Bacteria (Auto) (Negative) COVID-19 Eval Order SARS-CoV-2 (PCR) NEGATIVE (Negative) Influenza Type A (PCR) Negative (Neg) Influenza Type B (PCR) Negative (Neg) RSV (RT-PCR) Negative (Neg) Imaging Data Radiologist's Impression: Gallbladder Ultrasound 08/04/20 13:04 ABDOMINAL ULTRASOUND, RIGHT UPPER QUADRANT HISTORY: Epigastric pain. COMPARISON: None. FINDINGS: Pancreas: The pancreas demonstrates a normal echotexture. Liver: The liver is echogenic consistent with fatty change. Gallbladder: A few tiny stones and trace pericholecystic fluid. No significant gallbladder wall thickening. A sonographic Wren's sign was unable to be assessed due to the patient's recent pain medication. CBD: 1 cm. Right kidney: No hydronephrosis. IMPRESSION: 1. A few tiny gallstones and trace pericholecystic fluid. However, no gallbladder wall thickening. Therefore, these findings are indeterminate for acute cholecystitis. 2. Dilated common bile duct up to 1 cm. This raises the possibility of an obstructive process. Consider ERCP, MRCP or nuclear medicine HIDA scan for further evaluation. 3. Mild hepatic steatosis. ACT 112: Negative or not required by law. Electronically signed by: Paul Arredondo M.D. 08/04/2020 3:15 PM Abdomen/Pelvis CT 08/04/20 15:36 CT SCAN OF THE ABDOMEN AND PELVIS WITH IV CONTRAST CLINICAL HISTORY: Acute pancreatitis. COMPARISON STUDY: Abdominal ultrasound dated 08/04/2020. TECHNIQUE: Following the IV administration of 89 cc of Optiray 300, CT scan of the abdomen and pelvis is performed from the lung bases to the proximal femora. Images are reviewed in the axial, sagittal, and coronal planes. IV contrast was administered without complication. A dose lowering technique was utilized adhering to the principles of ALARA. The examination is degraded by large body habitus, and by streak artifact from the body wall abutting the CT gantry. CT DOSE: 1411.46 mGy.cm FINDINGS: Lung bases: The heart is normal in size and without pericardial effusion. The lung bases are clear noting dependent atelectasis. There is a tiny hiatal hernia. Liver: The contrast-enhanced liver is enlarged, measuring 22.2 cm in length. There is no intrahepatic biliary ductal dilatation. The hepatic veins and portal veins are patent. Gallbladder: The gallbladder is distended. There are tiny calcified gallstones. The gallbladder wall is thickened and edematous, and there is associated pericholecystic inflammation. Spleen: Normal in size and attenuation. Pancreas: There is mild atrophy of the pancreas. The pancreas is edematous, with peripancreatic stranding and fluid. The appearance is consistent with acute pancreatitis. The gland enhances throughout. The duct is normal in caliber. The splenic vein is patent. No organized peripancreatic fluid collection is identified. Adrenal glands: Unremarkable. Kidneys: The contrast enhanced kidneys are normal in size and without hydronephrosis. The kidneys enhance symmetrically. Abdominal vasculature: The abdominal aorta is normal in course and caliber noting scattered foci of atherosclerotic calcification. Bowel: No bowel obstruction is seen. There is mild colonic diverticulosis without CT evidence of acute diverticulitis. The appendix is well-visualized and normal. Peritoneum: There is no intraperitoneal free air or abdominal ascites. There is a small fat-containing umbilical hernia. Lymphadenopathy: None. Pelvic viscera: The bladder, uterus, and adnexa are normal as visualized. Skeletal structures: Mild degenerative change is noted in the lumbar spine. No lytic or blastic lesions are seen. IMPRESSION: 1. Findings are consistent with acute pancreatitis. 2. The pancreas enhances throughout and no organized peripancreatic fluid collection is identified. 3. Cholelithiasis with evidence of acute cholecystitis. 4. Hepatomegaly. 5. Mild colonic diverticulosis without CT evidence of acute diverticulitis. 6. Additional findings as above. ACT 112: Negative or not required by law. Electronically signed by: Miguel Ángel Llanes M.D. 08/04/2020 4:04 PM ECG Data Attestation: I personally reviewed and interpreted this ECG as follows: Indication: + abdominal pain Rate (beats per minute): 76 Rhythm: + normal sinus ECG Intervals/blocks: + Normal QRS and + Normal QT-c ECG [place]: + Normal ECG ST segments: + Normal ST segments ECG Findings: no PACs and no PVCs Comparison ECG Date: from (12/23/19) Change: no significant change Blood Pressure Blood Pressure Findings: Elevated blood pressure Blood Pressure Disposition: further management by hospitalist MDM Narrative This pt was evaluated and appeared to be in no distress. IV access was obtained and lab work was drawn. An order for cardiac monitoring was placed and the pt was noted to be in a NSR at 80 bpm. Pt was hydrated with NSS, given IV hydromorphone and zofran. US RUQ was significant for gallstones and CBD dilatation. CT imaging was ordered d/t lipase of 5566. This study is c/w acute pancreatitis. Case was d/w the hospitalist service who will evaluate the pt for admission, pt was made aware of the findings and plan and agreed. Impression & Plan Acute pancreatitis, Cholelithiasis Discharge Plan Visit Data Chief Complaint: GI Assessment Stated Complaint: SEVERE UPPER ABD PAIN INTO BACK,NAUSEA ED Provider: Jolie Hernandez Discharge Problem: Acute pancreatitis, Cholelithiasis Patient Disposition: Admitted As Inpatient Discharge Instructions Interventions: ED Discharge Assessment Last Done: 08/04/20 17:20 Discharge Problem: Acute pancreatitis Qualifiers: Pancreatitis type: biliary Acute pancreatitis complication: no infection or necrosis Qualified Code(s): K85.10 - Biliary acute pancreatitis without necrosis or infection Cholelithiasis Qualifiers: Cholelithiasis location: gallbladder Cholecystitis presence: without cholecystitis Biliary obstruction: without biliary obstruction Qualified Code(s): K80.20 - Calculus of gallbladder without cholecystitis without obstruction
[2020-08-05] MEDS: LACTATED RINGER'S 1,000 ML IV SCH ×4 (00:32→17:37)
[2020-08-05] MEDS: ONDANSETRON INJ 2 MG/ML 2 ML VIAL IV PRN (00:33)
[2020-08-05 06:33] LABS: Hematocrit (blood only) 42.5 % (37-47); Hemoglobin 13.8 g/dL (12.0-16.0); Mean Corpuscular Hemoglobin 26.8 pg (25-34); Mean Corpuscular Hgb Conc 32.5 g/dL (32-36); Mean Corpuscular Volume 82.7 fL (80-100); Mean Platelet Volume 9.6 fL (7.4-10.4); Platelet Count 332 K/uL (130-400); RDW Coefficient of Variation 15.8 % (11.5-14.5); RDW Standard Deviation 48.3 fL (36.4-46.3); Red Blood Count 5.14 M/uL (4.2-5.4); White Blood Count 13.16 K/uL (4.8-10.8)
[2020-08-05 06:48] LABS: Albumin Level 3.2 gm/dl (3.4-5.0); BUN Creatinine Ratio 20.6 (10-20); Calcium 8.8 mg/dl (8.5-10.1); Creatinine Clr Calc Pharmacy 169.2 ml/min; Est GFR (African American) 132.7; Est GFR (Non-African American) 114.5; Potassium 3.1 mmol/L (3.5-5.1)
[2020-08-05 06:51] LABS: Albumin Globulin Ratio 0.9 (0.9-2); Bilirubin,Total 0.6 mg/dl (0.2-1); Globulin 3.4 gm/dl (2.5-4.0); Total Protein 6.6 gm/dl (6.4-8.2)
[2020-08-05] MEDS: ASPIRIN 81 MG ECTAB PO SCH (07:36)
[2020-08-05] MEDS: ACETAMINOPHEN 325 MG TAB PO PRN ×3 (07:36→23:59)
--- NOTE | 2020-08-05 08:19 | Magnetic Resonance Report ---
MR MRCP HISTORY: Upper abdominal pain. gallstone pancreatitis TECHNIQUE: MRCP of the abdomen was performed without contrast according to standard departmental prot ocol. COMPARISON STUDY: Abdomen and pelvis CT 08/04/2020. FINDINGS: There is mild motion artifact. The lung bases are clear. The pancreas is edematous with mil d peripancreatic edema/fluid. Findings are consistent with acute pancreatitis. Mild perinephric edema which is likely reactive. No hydronephrosis. The adrenal glands unremarkable. No hepatic or splenic masses. No retroperitoneal lymphadenopathy. Normal caliber abdominal aorta. Pericholecystic fluid wit h a few punctate gallstones. Normal caliber common bile duct measuring up to 5 mm. No filling defects within the common bile duct to suggest a stone. The main pancreatic duct is suboptimally assessed du e to the motion artifact. However, the main pancreatic duct appears to be normal and course and calib er. No intrahepatic bile duct dilatation. IMPRESSION: 1. Acute pancreatitis. 2. A few small gallstones. There is also pericholecystic fluid. This could be reactive to the acute p ancreatitis or represent a developing acute cholecystitis. 3. Normal caliber common bile duct. No stones identified within the common bile duct. 4. The main pancreatic duct appears normal in course and caliber. ACT 112: Negative or not required by law. Electronically signed by: Paul Arredondo M.D. 08/05/2020 8:17 AM
--- NOTE | 2020-08-05 09:43 | Gastrointestinal Consultation ---
Date of Consultation August 05, 2020 Assessment & Plan (1) Gallstone pancreatitis: Pt is a 54 y/o female admitted w acute pancreatitis, suspect gallstone related. + cholelithiasis w cholecystitis w/o signs fo biliary obstruction (MRCP negative). - IVF hydration w LR. - May start CL diet today if no surgical intervention planned; for eventual goal to advance to low fat diet. If tolerating PO fluids well, may start to decrease LR rate. - Trend LFTs - Defer to Surgery on timing of cholecystectomy. Would recommend intra op cholangiogram be performed at time of cholecystectomy to r/o biliary obstruction related to gallstone - Will plan for outpt EUS in 4-6 week's time Supervising Physician Co-Signing Physician Notes I performed a history and physical examination of the patient today, including specifically on physical exam - soft abdomen. I have discussed the patient's management with the advanced practitioner. Please refer to the nurse practitioner's note for the documented findings and plan of care. Likely passed a CBD stone. Suggest Lap kyree with IOC. EUs as OP. Recall Gi if needed. History of Present Illness Reason for Consultation: Pancreatitis Requesting Physician: Dr. Danielle Alves Attending Physician: Dr. Pili Grant History of Present Illness Pt is a 54 y/o female who presented yesterday w c/o upper abd pain. She reports epigastric pain started 2AM 2 nights ago. Pain radiates to RUQ, back. Denies associated fever, chills, + mild nausea but no vomiting, no bowel habit changes. on eval, noted to have mild LFT elevation: Tbili 0.6, AST 54, ALT 67, Alk phos 113. Lipase up at over 5000s. Abdominal imaging studies (CT abd, u/s, MRCP) w signs of gallstone & cholecystitis, pancreatitis but normal caliber bile duct w/o filling defect. Pancreas duct also normal caliber TG 172. Denies tobacco, + social etoh use but none recently. Denies new meds or herbal supplements. Mother w hx of breast ca, Son w MS, no family hx of autoimmune pancreatitis or GI malignancies Allergies Allergy/AdvReac Type Severity Reaction Status Date / Time Abmmtiz-Dcm-Yoi Reductase AdvReac Mild Cramping Verified 08/04/20 13:48 Inhibitor of the Muscles Home Medications Medication Instructions Recorded Confirmed Type albuterol sulfate [ProAir HFA] 1 inh INHALATION QID PRN 12/18/19 08/04/20 History amoxicillin 2,000 mg PO UD 12/18/19 08/04/20 History aspirin 81 mg PO QAM 12/18/19 08/04/20 History atenolol 25 mg PO HS 12/18/19 08/04/20 History ezetimibe [Zetia] 10 mg PO QDD 12/18/19 08/04/20 History famotidine 40 mg PO BID PRN 12/18/19 08/04/20 History furosemide 20 mg PO QAM 12/18/19 08/04/20 History icosapent ethyl 2 g PO BID 12/18/19 08/04/20 History potassium chloride 10 meq PO BID 12/18/19 08/04/20 History Patient History Medical History GERD (gastroesophageal reflux disease) Hiatal hernia Hyperlipidemia Hypertension Morbid obesity Osteoarthritis Surgical History History of total bilateral knee replacement (TKR) Hx of section Family History Mother Heart disease Father Heart disease Social History Smoking Status: Never smoker Second Hand Exposure: No; Do You Dip or Chew Tobacco: No; Tobacco Cessation Education Requested by Patient: No Hx Alcohol Use: Yes Alcohol type: beer, wine and hard liquor Alcohol Intake Frequency: 2-4 x/Month Hx Substance Use: No Preferred Language: Danish Communication Ability: Effective Food Packer Required: No Beliefs That Will Affect Care: None Current Living Situation: Spouse Other Information That Helps Us Care for You: No Feels Safe at Home: Yes Safety Concerns: Feels Safe At This Time Assistive Devices: None Review of Systems Review of Systems: All systems reviewed & are unremarkable except as noted in HPI & below Physical Exam Constitutional: WD/WN, vitals as above well groomed, cooperative and comfortable Eyes: PERRL, conjunctivae normal, anicteric sclerae ENMT: external ear and nose normal, oropharynx normal Respiratory: normal respiratory effort, lungs clear to auscultation Cardiovascular: RRR, no murmur, no edema Gastrointestinal (Abdomen): Percussion/Palpation: + abdomen tender (RUQ, epigastric, LLQ ) and abdomen soft Skin: no rashes, warm and dry no jaundice Neurologic: Motor/Sensory: no asterixis Psychiatric: A+Ox3, euthymic affect Lymphatic: no lymphedema Results & Data ([facility]) Vital Signs (Past 12 Hours) Vital Signs Temp Pulse Resp BP Pulse Ox 08/05/20 06:54 37.2 C 88 18 134/82 95 08/04/20 22:06 36.9 C 93 H 16 169/81 H 94
[2020-08-05] MEDS ORDERED: PIPERACILL/TAZOBAC CONSULT ACTIVE PRN (10:04)
[2020-08-05] MEDS ORDERED: POTASSIUM CHLORIDE CRTAB 20 MEQ TABCR PO STA (10:07)
[2020-08-05] MEDS ORDERED: PIPERACILLIN/TAZOBACTAM 4.5 GM in DEXTROSE 5% 100 ML IV ONE (10:15)
[2020-08-05] MEDS ORDERED: PIPERACILLIN/TAZOBACTAM 3.375 GM in DEXTROSE 5% 100 ML IV SCH (10:15)
--- NOTE | 2020-08-05 11:50 | Surgery Progress Note ---
Date of Service August 05, 2020 Assessment & Plan (1) Gallstone pancreatitis: t. bili and lfts wnl. lipase down to 2,000 (5566 yesterday) MRCP negative for choledocholithiasis but possibly developing acute cholecystitis abdominal pain improved leukocytosis improved to 13k (15K) Plan: Given concern for possible cholecystitis will add IV Zosyn Patient would like to proceed with cholecystectomy. Will plan for Lap kyree with cholangiogram on Saturday with Dr. Guy. Will obtain consent prior. Trend LFTS and lipase okay for clear liquids advised to go slowly Per GI note, can decrease IV Fluids once taking PO liquids well OOB to chair and ambulate continue medical management Dr. Guy was present during my examination and agrees with above. Admission and Anticipated Discharge Date Admission Date: August 04, 2020 Subjective feeling better today still having abdominal pain in upper abdomen but improved would like to maybe have some liquids no n/v wants to proceed with gallbladder surgery Physical Exam Constitutional: WD/WN, vitals as above Respiratory: normal respiratory effort; no respiratory distress and no labored breathing Gastrointestinal (Abdomen): Inspection/Auscultation: abdomen normal to inspection; abdomen not distended Percussion/Palpation: + abdomen tender (upper abdomen) and abdomen soft; no guarding and abdomen not rigid Skin: no rashes, warm and dry Psychiatric: A+Ox3, euthymic affect Results & Data ([facility]) Vital Signs (Past 12 Hours) Vital Signs Temp Pulse Resp BP Pulse Ox 08/05/20 06:54 37.2 C 88 18 134/82 95 Laboratory Results 08/05/20 08/05/20 08/04/20 Range/Units 05:40 05:40 15:31 WBC 13.16 H (4.8-10.8) K/uL RBC 5.14 (4.2-5.4) M/uL Hgb 13.8 (12.0-16.0) g/dL Hct 42.5 (37-47) % MCV 82.7 (80-100) fL MCH 26.8 (25-34) pg MCHC 32.5 (32-36) g/dL RDW Std Deviation 48.3 H (36.4-46.3) fL RDW Coeff of Ce 15.8 H (11.5-14.5) % Plt Count 332 (130-400) K/uL MPV 9.6 (7.4-10.4) fL Immature Gran % (Auto) % Neut % (Auto) % Lymph % (Auto) % [place] % (Auto) % Eos % (Auto) % Baso % (Auto) % Neut # (Auto) (1.4-6.5) K/uL Lymph # (Auto) (1.2-3.4) K/uL [place] # (Auto) (0.11-0.59) K/uL Eos # (Auto) (0-0.5) K/uL Baso # (Auto) (0-0.2) K/uL Immature Gran # (Auto) (0.00-0.02) K/uL PT INR Sodium 140 (136-145) mmol/L Potassium 3.1 L (3.5-5.1) mmol/L Chloride 107 (98-107) mmol/L Carbon Dioxide 28 (21-32) mmol/L Anion Gap 6.0 (3-11) BUN 9 (7-18) mg/dl Creatinine 0.43 L (0.6-1.2) mg/dl Est Cr Clr Drug Dosing 169.2 ml/min Est GFR ( Amer) 132.7 Est GFR (Non-Af Amer) 114.5 BUN/Creatinine Ratio 20.6 H (10-20) Glucose 109 H (70-99) mg/dl Lactate (0.4-2.0) mmol/L Calcium 8.8 (8.5-10.1) mg/dl Total Bilirubin 0.6 (0.2-1) mg/dl AST 22 (15-37) U/L ALT 45 (12-78) U/L Alkaline Phosphatase 96 (45-117) U/L Troponin I (0-0.045) ng/ml Total Protein 6.6 (6.4-8.2) gm/dl Albumin 3.2 L (3.4-5.0) gm/dl Globulin 3.4 (2.5-4.0) gm/dl Albumin/Globulin Ratio 0.9 (0.9-2) Triglycerides 172 H (0-150) mg/dl Cholesterol 214 H (0-200) mg/dl LDL Cholesterol, Calc 129 mg/dl VLDL Cholesterol, Calc 34 mg/dl HDL Cholesterol 51 mg/dl Cholesterol/HDL Ratio 4 Lipase 2075 H (73-393) U/L Urine Color Urine Appearance (Clear) Urine pH (4.5-7.5) Ur Specific [place] (1.000-1.030) Urine Protein (Negative) Urine Glucose (UA) (Negative) Urine Ketones (Negative) Urine Blood (Negative) Urine Nitrite (Negative) Urine Bilirubin (Negative) Urine Urobilinogen (Negative) Ur Leukocyte Esterase (Negative) Urine WBC (Auto) (0-5) /hpf Urine RBC (Auto) (0-4) /hpf U Hyaline Cast (Auto) (0-5) /lpf U Epithel Cells (Auto) (0-5) /lpf Urine Bacteria (Auto) (Negative) COVID-19 Eval Order SARS-CoV-2 (PCR) NEGATIVE (Negative) Influenza Type A (PCR) Negative (Neg) Influenza Type B (PCR) Negative (Neg) RSV (RT-PCR) Negative (Neg) 08/04/20 08/04/20 08/04/20 Range/Units 15:31 13:35 13:27 WBC (4.8-10.8) K/uL RBC (4.2-5.4) M/uL Hgb (12.0-16.0) g/dL Hct (37-47) % MCV (80-100) fL MCH (25-34) pg MCHC (32-36) g/dL RDW Std Deviation (36.4-46.3) fL RDW Coeff of Ce (11.5-14.5) % Plt Count (130-400) K/uL MPV (7.4-10.4) fL Immature Gran % (Auto) % Neut % (Auto) % Lymph % (Auto) % [place] % (Auto) % Eos % (Auto) % Baso % (Auto) % Neut # (Auto) (1.4-6.5) K/uL Lymph # (Auto) (1.2-3.4) K/uL [place] # (Auto) (0.11-0.59) K/uL Eos # (Auto) (0-0.5) K/uL Baso # (Auto) (0-0.2) K/uL Immature Gran # (Auto) (0.00-0.02) K/uL PT INR Sodium (136-145) mmol/L Potassium (3.5-5.1) mmol/L Chloride (98-107) mmol/L Carbon Dioxide (21-32) mmol/L Anion Gap (3-11) BUN (7-18) mg/dl Creatinine (0.6-1.2) mg/dl Est Cr Clr Drug Dosing ml/min Est GFR ( Amer) Est GFR (Non-Af Amer) BUN/Creatinine Ratio (10-20) Glucose (70-99) mg/dl Lactate 1.5 (0.4-2.0) mmol/L Calcium (8.5-10.1) mg/dl Total Bilirubin (0.2-1) mg/dl AST (15-37) U/L ALT (12-78) U/L Alkaline Phosphatase (45-117) U/L Troponin I (0-0.045) ng/ml Total Protein (6.4-8.2) gm/dl Albumin (3.4-5.0) gm/dl Globulin (2.5-4.0) gm/dl Albumin/Globulin Ratio (0.9-2) Triglycerides (0-150) mg/dl Cholesterol (0-200) mg/dl LDL Cholesterol, Calc mg/dl VLDL Cholesterol, Calc mg/dl HDL Cholesterol mg/dl Cholesterol/HDL Ratio Lipase (73-393) U/L Urine Color Dark Yellow Urine Appearance Clear (Clear) Urine pH 5.5 (4.5-7.5) Ur Specific [place] 1.028 (1.000-1.030) Urine Protein 1+ H (Negative) Urine Glucose (UA) Negative (Negative) Urine Ketones 3+ H (Negative) Urine Blood 1+ H (Negative) Urine Nitrite Negative (Negative) Urine Bilirubin 1+ H (Negative) Urine Urobilinogen Negative (Negative) Ur Leukocyte Esterase Negative (Negative) Urine WBC (Auto) 1-5 (0-5) /hpf Urine RBC (Auto) 10-30 H (0-4) /hpf U Hyaline Cast (Auto) 1-5 (0-5) /lpf U Epithel Cells (Auto) >30 H (0-5) /lpf Urine Bacteria (Auto) Negative (Negative) COVID-19 Eval Order CovFluRsv at [facility] SARS-CoV-2 (PCR) (Negative) Influenza Type A (PCR) (Neg) Influenza Type B (PCR) (Neg) RSV (RT-PCR) (Neg) 08/04/20 08/04/20 08/04/20 Range/Units 12:11 12:11 12:11 WBC 13.98 H (4.8-10.8) K/uL RBC 5.78 H (4.2-5.4) M/uL Hgb 15.4 (12.0-16.0) g/dL Hct 47.3 H (37-47) % MCV 81.8 (80-100) fL MCH 26.6 (25-34) pg MCHC 32.6 (32-36) g/dL RDW Std Deviation 46.7 H (36.4-46.3) fL RDW Coeff of Ce 15.7 H (11.5-14.5) % Plt Count 364 (130-400) K/uL MPV 9.7 (7.4-10.4) fL Immature Gran % (Auto) 0.4 % Neut % (Auto) 85.9 % Lymph % (Auto) 9.7 % [place] % (Auto) 3.8 % Eos % (Auto) 0.1 % Baso % (Auto) 0.1 % Neut # (Auto) 12.00 H (1.4-6.5) K/uL Lymph # (Auto) 1.36 (1.2-3.4) K/uL [place] # (Auto) 0.53 (0.11-0.59) K/uL Eos # (Auto) 0.01 (0-0.5) K/uL Baso # (Auto) 0.02 (0-0.2) K/uL Immature Gran # (Auto) 0.06 H (0.00-0.02) K/uL PT Cancelled INR Cancelled Sodium 138 (136-145) mmol/L Potassium 3.6 (3.5-5.1) mmol/L Chloride 105 (98-107) mmol/L Carbon Dioxide 25 (21-32) mmol/L Anion Gap 8.0 (3-11) BUN 12 (7-18) mg/dl Creatinine 0.44 L (0.6-1.2) mg/dl Est Cr Clr Drug Dosing 165.4 ml/min Est GFR ( Amer) 131.7 Est GFR (Non-Af Amer) 113.6 BUN/Creatinine Ratio 27.0 H (10-20) Glucose 119 H (70-99) mg/dl Lactate (0.4-2.0) mmol/L Calcium 9.7 (8.5-10.1) mg/dl Total Bilirubin 0.7 (0.2-1) mg/dl AST 54 H (15-37) U/L ALT 67 (12-78) U/L Alkaline Phosphatase 117 (45-117) U/L Troponin I < 0.015 (0-0.045) ng/ml Total Protein 7.9 (6.4-8.2) gm/dl Albumin 4.1 (3.4-5.0) gm/dl Globulin 3.8 (2.5-4.0) gm/dl Albumin/Globulin Ratio 1.1 (0.9-2) Triglycerides (0-150) mg/dl Cholesterol (0-200) mg/dl LDL Cholesterol, Calc mg/dl VLDL Cholesterol, Calc mg/dl HDL Cholesterol mg/dl Cholesterol/HDL Ratio Lipase 5566 H (73-393) U/L Urine Color Urine Appearance (Clear) Urine pH (4.5-7.5) Ur Specific [place] (1.000-1.030) Urine Protein (Negative) Urine Glucose (UA) (Negative) Urine Ketones (Negative) Urine Blood (Negative) Urine Nitrite (Negative) Urine Bilirubin (Negative) Urine Urobilinogen (Negative) Ur Leukocyte Esterase (Negative) Urine WBC (Auto) (0-5) /hpf Urine RBC (Auto) (0-4) /hpf U Hyaline Cast (Auto) (0-5) /lpf U Epithel Cells (Auto) (0-5) /lpf Urine Bacteria (Auto) (Negative) COVID-19 Eval Order SARS-CoV-2 (PCR) (Negative) Influenza Type A (PCR) (Neg) Influenza Type B (PCR) (Neg) RSV (RT-PCR) (Neg)
--- NOTE | 2020-08-05 12:57 | Electrocardiogram Report ---
Test Reason : Blood Pressure : / mmHG Vent. Rate : 076 BPM Atrial Rate : 076 BPM P-R Int : 156 ms QRS Dur : 076 ms QT Int : 402 ms P-R-T Axes : 065 015 027 degrees QTc Int : 452 ms Normal sinus rhythm Normal ECG When compared with ECG of 23-DEC-2019 11:35, No significant change was found Confirmed by Dean Gloria ([id number]) on 08/05/2020 12:56:56 PM Referred By: REFERRED SELF Confirmed By:Dewayne Gloria
[2020-08-05] MEDS: PIPERACILLIN/TAZOBACTAM 4.5 GM in DEXTROSE 5% 100 ML IV SCH ×2 (15:50→23:47)
[2020-08-05] MEDS: EZETIMIBE 10 MG TABLET PO SCH (17:36)
--- NOTE | 2020-08-05 19:23 | Hospitalist Progress Note ---
Date of Service August 05, 2020 Assessment & Plan (1) Gallstone pancreatitis: Present on admission with abdominal pain Lipase [address] abd/pelvis showed findings that are consistent with acute pancreatitis. Gallbladder u/s showed a few tiny gallstones and trace pericholecystic fluid. However, no gallbladder wall thickening MRCP showed acute pancreatitis. A few small gallstones. There is also pericholecystic fluid. This could be reactive to the acute pancreatitis or represent a developing acute cholecystitis.Normal caliber common bile duct. No stones identified within the common bile duct. Lipase decreased from 5000 to 6 gastro on board recommended outpatient EUS Surgery on board plan for cholecystectomy on Saturday Starting on clear liquid diet Will decrease IVF Continue pain control Clinically improves (2) Hypertension: BP stable continue atenolol (3) Hyperlipidemia: With history of statin intolerance Continue Zetia and Vascepa (4) DVT prophylaxis: SCDs/ anticipate surgery on Saturday Will add DVT px for today and tomorrow Admission and Anticipated Discharge Date Admission Date: August 04, 2020 Subjective Pt was seen and examined for follow up of pancreatitis Sitting in bed with no distress watching TV Pt said that her abdominal pain is much better Denies ay chest pain, palpitation, dizziness and SOB Review of Systems Review of Systems: All systems reviewed & are unremarkable except as noted in Subjective Physical Exam Physical Exam: General- No acute distress Head- atraumatic Eyes- PERRL, EOMI, ENT- oropharynx clear Neck- supple, no JVD Lungs- clear to auscultation Heart- regular rhythm; no murmur Abdomen- normal bowel sounds, +mild tenderness with deep palpation Extremities- no calf tenderness Neuro- alert, oriented x 3; PERRL, EOMI; no facial palsy; no dysarthria Skin- warm & dry Results & Data Results & Data ([facility]) Vital Signs (Past 12 Hours) Vital Signs Temp Pulse Resp BP Pulse Ox 08/05/20 15:39 37.3 C 82 16 147/86 H 93
[2020-08-05] MEDS: ATENOLOL 25 MG TABLET PO SCH (20:11)
[2020-08-06] MEDS: LACTATED RINGER'S 1,000 ML IV SCH ×2 (02:21→14:00)
--- NOTE | 2020-08-06 06:14 | Surgery Progress Note ---
Date of Service August 06, 2020 Assessment & Plan (1) Gallstone pancreatitis: Patient is tentatively scheduled for cholecystectomy on 08/08/2020. Until surgery we will proceed in the following manner: Maintain the patient on clear liquids Maintain gentle hydration with IV fluids Continue analgesics Continue antiemetics Continue antibiotics in the form of Zosyn Patient has been seen by gastroenterology and there is no evidence of choledocholithiasis on MRCP. It is felt that patient could have potentially passed a common bile duct stone. GI has recommended an intraoperative cholangiogram be performed at time of cholecystectomy and are planning an endoscopic ultrasound on an outpatient basis several weeks after surgery. Admission and Anticipated Discharge Date Admission Date: August 04, 2020 Supervising Physician Co-Signing Physician Notes Patient seen and examined, labs reviewed, agree with above. 54-year-old female admitted with gallstone pancreatitis. She feels better than admission but still has some epigastric discomfort. She has some nausea and is not interested in her clear liquids. On exam she is afebrile stable vitals. Abdomen is soft, tender to palpation in the epigastrium without guarding or rebound. Labs with downtrending white blood cell count. Recommend continuing on clear liquids today as patient is still having symptomatic pancreatitis. Plan for laparoscopic cholecystectomy on Saturday with Dr. Guy. Subjective Patient notes some generalized abdominal pain which is greatest in the epigastric area. She denies any nausea or vomiting. She is currently taking clear liquids which are not exacerbating her abdominal pain. She has noted a bowel movement since admission to the hospital. Physical Exam Gastrointestinal (Abdomen): Patient's abdomen is soft and nondistended. There is minor tenderness noted with deep palpation of the epigastric area. There is no rebound tenderness or guarding. Results & Data ([facility]) Vital Signs (Past 12 Hours) Vital Signs Temp Pulse Resp BP Pulse Ox 08/06/20 03:53 131/77 08/06/20 02:22 37.1 C 146/85 H 08/05/20 23:28 37.6 C H 87 18 162/84 H 94 08/05/20 20:10 83 146/87 H 91 PG Care Time/CCT Total # of Minutes Spent Total Time Spent with Patient: Total time spent is greater than 50% in coordination of care (as documented) at patient's floor/unit and/or counseling patient: Coding Level of Care Code 04367 Subseq Hosp Care Lvl 1 Diagnoses Gallstone pancreatitis K85.10
[2020-08-06 06:46] LABS: Basophils # (auto) 0.02 K/uL (0-0.2); Basophils % (auto) 0.2 %; Eosinophils % (auto) 1.6 %; Hematocrit (blood only) 40.5 % (37-47); Hemoglobin 12.9 g/dL (12.0-16.0); Immature Granulocytes # (auto) 0.03 K/uL (0.00-0.02); Immature Granulocytes % (auto) 0.2 %; Lymphocytes # (auto) 2.21 K/uL (1.2-3.4); Lymphocytes % (auto) 17.1 %; Mean Corpuscular Hemoglobin 26.7 pg (25-34); Mean Corpuscular Hgb Conc 31.9 g/dL (32-36); Mean Corpuscular Volume 83.7 fL (80-100); Mean Platelet Volume 9.4 fL (7.4-10.4); Monocytes # (auto) 0.89 K/uL (0.11-0.59); Monocytes % (auto) 6.9 %; Neutrophils # (auto) 9.55 K/uL (1.4-6.5); Platelet Count 289 K/uL (130-400); RDW Standard Deviation 48.7 fL (36.4-46.3); Red Blood Count 4.84 M/uL (4.2-5.4)
[2020-08-06 07:15] LABS: Albumin Level 3.2 gm/dl (3.4-5.0); BUN Creatinine Ratio 16.4 (10-20); Calcium 8.7 mg/dl (8.5-10.1); Creatinine Clr Calc Pharmacy 220.5 ml/min; Est GFR (African American) 144.8; Est GFR (Non-African American) 124.9; Potassium 3.3 mmol/L (3.5-5.1)
[2020-08-06 07:18] LABS: Albumin Globulin Ratio 0.9 (0.9-2); Bilirubin,Total 0.7 mg/dl (0.2-1); Globulin 3.4 gm/dl (2.5-4.0); Total Protein 6.6 gm/dl (6.4-8.2)
[2020-08-06] MEDS: ONDANSETRON INJ 2 MG/ML 2 ML VIAL IV PRN ×2 (08:17→18:17)
[2020-08-06] MEDS: ASPIRIN 81 MG ECTAB PO SCH (08:17)
[2020-08-06] MEDS: ACETAMINOPHEN 325 MG TAB PO PRN ×2 (08:17→15:58)
[2020-08-06] MEDS: PIPERACILLIN/TAZOBACTAM 4.5 GM in DEXTROSE 5% 100 ML IV SCH ×2 (08:18→15:58)
[2020-08-06] MEDS ORDERED: POTASSIUM CHLORIDE CRTAB 20 MEQ TABCR PO STA (09:00)
[2020-08-06] MEDS ORDERED: POTASSIUM CHLORIDE 10 MEQ TABCR PO STA (09:00)
[2020-08-06] MEDS: KETOROLAC TROMETHAMINE 15 MG/ML VIAL IV PRN ×2 (10:46→18:18)
[2020-08-06] MEDS: HEPARIN SOD 5,000 UNIT/0.5 ML VIAL SQ SCH ×2 (11:16→22:13)
[2020-08-06] MEDS: EZETIMIBE 10 MG TABLET PO SCH (16:27)
--- NOTE | 2020-08-06 19:33 | Hospitalist Progress Note ---
Date of Service August 06, 2020 Assessment & Plan (1) Gallstone pancreatitis: Present on admission with abdominal pain Lipase [address] abd/pelvis showed findings that are consistent with acute pancreatitis. Gallbladder u/s showed a few tiny gallstones and trace pericholecystic fluid. However, no gallbladder wall thickening MRCP showed acute pancreatitis. A few small gallstones. There is also pericholecystic fluid. This could be reactive to the acute pancreatitis or represent a developing acute cholecystitis.Normal caliber common bile duct. No stones identified within the common bile duct. Lipase decreased from 5000 to 2075->381 gastro on board recommended outpatient EUS Surgery on board plan for cholecystectomy on Saturday Tolerated clear liquid diet Continue gentle hydration Continue pain control Clinically improves (2) Hypertension: BP stable continue atenolol (3) Hyperlipidemia: With history of statin intolerance Continue Zetia Ok to hold Vascepa since our pharmacy does not have it in stock and pt is unable to drop it (4) DVT prophylaxis: SCDs/ anticipate surgery on Saturday On heparin subq for now Admission and Anticipated Discharge Date Admission Date: August 04, 2020 Subjective Pt was seen and examined for follow up of pancreatitis Lying in bed with no distress watching TV She was started on clear liquid diet and tolerated well Denies any chest pain, palpitatio, dizziness and SOB Review of Systems Review of Systems: All systems reviewed & are unremarkable except as noted in Subjective Physical Exam Physical Exam: General- No acute distress Head- atraumatic Eyes- PERRL, EOMI, ENT- oropharynx clear Neck- supple, no JVD Lungs- clear to auscultation Heart- regular rhythm; no murmur Abdomen- normal bowel sounds, +mild tenderness with deep palpation Extremities- no calf tenderness Neuro- alert, oriented x 3; PERRL, EOMI; no facial palsy; no dysarthria Skin- warm & dry Results & Data Results & Data ([facility]) Vital Signs (Past 12 Hours) Vital Signs Temp Pulse Resp BP Pulse Ox 08/06/20 16:16 37.0 C 86 18 174/98 H 95 08/06/20 07:36 37.4 C 85 18 154/90 H 92
[2020-08-06] MEDS: ATENOLOL 25 MG TABLET PO SCH (22:12)
[2020-08-07] MEDS: PIPERACILLIN/TAZOBACTAM 4.5 GM in DEXTROSE 5% 100 ML IV SCH ×4 (00:18→23:56)
[2020-08-07] MEDS: LACTATED RINGER'S 1,000 ML IV SCH ×3 (03:38→22:48)
[2020-08-07] MEDS: KETOROLAC TROMETHAMINE 15 MG/ML VIAL IV PRN ×3 (04:26→22:49)
[2020-08-07] MEDS: ONDANSETRON INJ 2 MG/ML 2 ML VIAL IV PRN ×3 (04:28→22:49)
[2020-08-07] MEDS: HEPARIN SOD 5,000 UNIT/0.5 ML VIAL SQ SCH ×2 (06:06→13:43)
--- NOTE | 2020-08-07 06:08 | Surgery Progress Note ---
Date of Service August 07, 2020 Assessment & Plan (1) Gallstone pancreatitis: Cholecystectomy is planned for 08/08/2020, which is tomorrow. Will continue care in the following manner: Maintain the patient on clear liquids, making her n.p.o. at midnight tonight Continue hydration with IV fluids Continue analgesics Continue antiemetics Continue antibiotics in the form of Zosyn GI input noted: They recommended intraoperative cholangiogram at time of cholecystectomy Endoscopic ultrasound is being planned as an outpatient following recovery from surgery Further recommendations were made based on her operative findings as well as recovery from planned surgery Admission and Anticipated Discharge Date Admission Date: August 04, 2020 Supervising Physician Co-Signing Physician Notes Patient seen and examined, labs reviewed, agree with above. 54-year-old female admitted with gallstone pancreatitis. She feels better than yesterday but still has some epigastric discomfort and is very hungry. On exam she is afebrile stable vitals. Abdomen is soft, less tender to palpation than yesterday in the epigastrium without guarding or rebound. Labs with downtrending white blood cell count. Continue clear liquids, n.p.o. after midnight. Plan for laparoscopic cholecystectomy on Saturday with Dr. Guy. Subjective Patient reports some intermittent nausea. She continues to have some minor epigastric pain as noted previously but this is not worse. She denies any fevers, shakes, chills. She denies having a bowel movement over the past 24 hours. Physical Exam Constitutional: well developed and well nourished; no acute distress Gastrointestinal (Abdomen): Abdomen is soft and nondistended. Bowel sounds are present. There is no rebound tenderness or guarding. Patient did have some minor pain with deep palpation in the epigastric area. Results & Data ([facility]) Vital Signs (Past 12 Hours) Vital Signs Temp Pulse Resp BP Pulse Ox 08/06/20 23:01 36.9 C 77 14 149/93 H 93 PG Care Time/CCT Total # of Minutes Spent Total Time Spent with Patient: Total time spent is greater than 50% in coordination of care (as documented) at patient's floor/unit and/or counseling patient: Coding Level of Care Code 80305 Subseq Hosp Care Lvl 1 Diagnoses Gallstone pancreatitis K85.10
[2020-08-07 07:19] LABS: Basophils # (auto) 0.03 K/uL (0-0.2); Basophils % (auto) 0.3 %; Eosinophils # (auto) 0.29 K/uL (0-0.5); Eosinophils % (auto) 2.4 %; Hematocrit (blood only) 38.5 % (37-47); Hemoglobin 12.6 g/dL (12.0-16.0); Immature Granulocytes # (auto) 0.04 K/uL (0.00-0.02); Immature Granulocytes % (auto) 0.3 %; Lymphocytes # (auto) 2.09 K/uL (1.2-3.4); Lymphocytes % (auto) 17.5 %; Mean Corpuscular Hemoglobin 27.2 pg (25-34); Mean Corpuscular Hgb Conc 32.7 g/dL (32-36); Mean Platelet Volume 9.4 fL (7.4-10.4); Monocytes # (auto) 0.77 K/uL (0.11-0.59); Monocytes % (auto) 6.4 %; Neutrophils # (auto) 8.73 K/uL (1.4-6.5); Neutrophils % (auto) 73.1 %; Platelet Count 282 K/uL (130-400); RDW Coefficient of Variation 15.7 % (11.5-14.5); RDW Standard Deviation 47.9 fL (36.4-46.3); Red Blood Count 4.64 M/uL (4.2-5.4); White Blood Count 11.95 K/uL (4.8-10.8)
[2020-08-07 07:36] LABS: BUN Creatinine Ratio 16.5 (10-20); Calcium 8.9 mg/dl (8.5-10.1); Creatinine Clr Calc Pharmacy 220.5 ml/min; Est GFR (African American) 144.8; Est GFR (Non-African American) 124.9; Potassium 3.4 mmol/L (3.5-5.1)
[2020-08-07 07:39] LABS: Albumin Globulin Ratio 0.8 (0.9-2); Bilirubin,Total 0.7 mg/dl (0.2-1); Globulin 3.6 gm/dl (2.5-4.0); Total Protein 6.6 gm/dl (6.4-8.2)
[2020-08-07] MEDS: ACETAMINOPHEN 325 MG TAB PO PRN (08:43)
[2020-08-07] MEDS: ASPIRIN 81 MG ECTAB PO SCH (08:44)
[2020-08-07] MEDS ORDERED: POTASSIUM CHLORIDE CRTAB 20 MEQ TABCR PO ONE (10:15)
--- NOTE | 2020-08-07 12:12 | Hospitalist Progress Note ---
Date of Service August 07, 2020 Assessment & Plan (1) Gallstone pancreatitis: Present on admission with abdominal pain Lipase [address] abd/pelvis showed findings that are consistent with acute pancreatitis. Gallbladder u/s showed a few tiny gallstones and trace pericholecystic fluid. However, no gallbladder wall thickening MRCP showed acute pancreatitis. A few small gallstones. There is also pericholecystic fluid. This could be reactive to the acute pancreatitis or represent a developing acute cholecystitis.Normal caliber common bile duct. No stones identified within the common bile duct. Lipase decreased from 5000 to 2075->381--> 173 gastro on board recommended outpatient EUS Surgery on board plan for cholecystectomy on Saturday Tolerated clear liquid diet Will make NPO after midnight Continue gentle hydration Continue pain control Clinically improves (2) Hypertension: BP stable continue atenolol (3) Hyperlipidemia: With history of statin intolerance Continue Zetia Ok to hold Vascepa since our pharmacy does not have it in stock and pt is unable to drop it Hypokalemia Potassium 3.4 K replaced Continue monitor BMP (4) DVT prophylaxis: SCDs/ anticipate surgery on Saturday On heparin subq for now Admission and Anticipated Discharge Date Admission Date: August 04, 2020 Subjective Pt was seen and examined for follow up of pancreatitis Lying in bed with no distress She tolerated clear liquid diet She said that she has mild tenderness in her abdomen Denies any chest pain, palpitatio, dizziness and SOB Review of Systems Review of Systems: All systems reviewed & are unremarkable except as noted in Subjective Physical Exam Physical Exam: General- No acute distress Head- atraumatic Eyes- PERRL, EOMI, ENT- oropharynx clear Neck- supple, no JVD Lungs- clear to auscultation Heart- regular rhythm; no murmur Abdomen- normal bowel sounds, +mild tenderness with deep palpation Extremities- no calf tenderness Neuro- alert, oriented x 3; PERRL, EOMI; no facial palsy; no dysarthria Skin- warm & dry Results & Data Results & Data ([facility]) Vital Signs (Past 12 Hours) Vital Signs Temp Pulse Resp BP Pulse Ox 08/07/20 07:43 36.9 C 82 18 138/75 94
[2020-08-07] MEDS: EZETIMIBE 10 MG TABLET PO SCH (16:37)
[2020-08-07] MEDS: ATENOLOL 25 MG TABLET PO SCH (20:43)
--- NOTE | 2020-08-08 07:29 | Anesthesiology Consultation ---
Date of Service August 08, 2020 Assessment & Plan (1) Encounter for pre-operative examination: Chart Review Chart Review: Acceptable Risk for Surgery and Patient NOT seen in Pre Admission Testing Consults Requested none History Surgery Operation Date: 08/08/20 10:25 Proposed Procedures p Laparoscopic Cholecystectomy - Marquis Guy MD Height/Weight Height: 5 ft 1 in Weight: 109.6 kg Allergies Allergy/AdvReac Type Severity Reaction Status Date / Time [id number]-Kfr-Ext Reductase AdvReac Mild Cramping Verified 08/04/20 13:48 Inhibitor of the Muscles Medications Home Medications Medication Instructions Recorded Confirmed Last Taken albuterol sulfate [ProAir HFA] 1 inh INHALATION QID PRN 12/18/19 08/04/20 Unknown amoxicillin 2,000 mg PO UD 12/18/19 08/04/20 10/27/18 aspirin 81 mg PO QAM 12/18/19 08/04/20 08/04/20 atenolol 25 mg PO HS 12/18/19 08/04/20 08/03/20 ezetimibe [Zetia] 10 mg PO QDD 12/18/19 08/04/20 08/03/20 famotidine 40 mg PO BID PRN 12/18/19 08/04/20 08/03/20 21:30 furosemide 20 mg PO QAM 12/18/19 08/04/20 08/04/20 icosapent ethyl 2 g PO BID 12/18/19 08/04/20 08/04/20 potassium chloride 10 meq PO BID 12/18/19 08/04/20 08/04/20 Active Medications Generic Name Dose Route Start Last Admin Trade Name Freq PRN Reason Stop Dose Admin Acetaminophen 650 mg 08/04/20 17:55 08/07/20 08:43 Acetaminophen 325 Mg Tab PO 09/03/20 17:54 650 mg Q4H PRN Administration pain/fever Aspirin 81 mg 08/05/20 09:00 08/07/20 08:44 Aspirin 81 Mg Ectab PO 09/04/20 08:59 81 mg QAM KENDRICK Administration Atenolol 25 mg 08/04/20 21:00 08/07/20 20:43 Atenolol 25 Mg Tablet PO 09/03/20 20:59 25 mg HS KENDRICK Administration Ezetimibe 10 mg 08/05/20 16:30 08/07/20 16:37 Ezetimibe 10 Mg Tablet PO 09/04/20 16:29 10 mg QDD KENDRICK Administration Hydromorphone HCl 0.5 mg 08/04/20 18:40 08/05/20 00:33 Hydromorphone Inj 0.5 Mg/0.5 Ml Syr IV 08/18/20 18:39 0.5 mg Q4H PRN Administration pain Lactated Ringer's 1,000 mls @ 70 mls/hr 08/04/20 18:15 08/07/20 22:48 Lr IV 09/03/20 18:14 70 mls/hr .[id number] KENDRICK Administration Promethazine HCl 12.5 mg/ 50.5 mls @ 202 mls/hr 08/04/20 20:19 08/04/20 21:59 Sodium Chloride IV 09/03/20 20:18 Infused Q6H PRN Infusion Nausea And Vomiting Piperacillin Sod/Tazobactam 120 mls @ 30 mls/hr 08/05/20 16:00 08/08/20 04:15 Sod 4.5 gm/ Dextrose IV 08/15/20 15:59 Infused Q8H KENDRICK Infusion Protocol Ketorolac Tromethamine 15 mg 08/06/20 09:24 08/07/20 22:49 Ketorolac Tromethamine 15 Mg/Ml Vial IV 08/11/20 09:23 15 mg Q6H PRN Administration Pain Miscellaneous 1 ea 08/05/20 00:00 08/08/20 00:19 Icosapent Ethyl -- Order Awaiting Action N/A 09/04/20 00:00 Not Given QS KENDRICK Ondansetron HCl 4 mg 08/04/20 18:40 08/07/20 22:49 Ondansetron Inj 2 Mg/Ml 2 Ml Vial IV 09/03/20 18:39 4 mg Q4H PRN Administration Nausea Past Medical History Medical History (Updated 08/08/20 @ 07:33 by Paul Hassan MD) Gallstone pancreatitis GERD (gastroesophageal reflux disease) Hiatal hernia Hyperlipidemia Hypertension Morbid obesity Osteoarthritis Past Family History Family History Mother Heart disease Father Heart disease Past Surgical History Surgical History History of total bilateral knee replacement (TKR) Hx of section Social History Smoking Status: Never smoker Do You Dip or Chew Tobacco: No Hx Alcohol Use: Yes Alcohol type: beer, wine and hard liquor alcohol intake frequency: holidays/special occasions only Hx Substance Use: No substance use type: does not use Physical Exam Vital Signs Last Vital Signs Temp 36.9 C 08/07/20 22:11 Pulse 71 08/07/20 22:11 Resp 16 08/07/20 22:11 BP 128/83 08/07/20 22:11 Pulse Ox 94 08/07/20 22:11 Testing Laboratory Results 08/07/20 06:36 08/07/20 06:36 PT Cancelled 08/04/20 12:11 INR Cancelled 08/04/20 12:11 Urine Color Dark Yellow 08/04/20 13:27 Urine Appearance Clear (Clear) 08/04/20 13:27 Urine pH 5.5 (4.5-7.5) 08/04/20 13:27 Ur Specific [place] 1.028 (1.000-1.030) 08/04/20 13:27 Urine Protein 1+ (Negative) H 08/04/20 13:27 Urine Glucose (UA) Negative (Negative) 08/04/20 13:27 Urine Ketones 3+ (Negative) H 08/04/20 13:27 Urine Nitrite Negative (Negative) 08/04/20 13:27 Ur Leukocyte Esterase Negative (Negative) 08/04/20 13:27 Urine WBC (Auto) 1-5 /hpf (0-5) 08/04/20 13:27 Urine RBC (Auto) 10-30 /hpf (0-4) H 08/04/20 13:27 U Hyaline Cast (Auto) 1-5 /lpf (0-5) 08/04/20 13:27 U Epithel Cells (Auto) >30 /lpf (0-5) H 08/04/20 13:27 Urine Bacteria (Auto) Negative (Negative) 08/04/20 13:27 Electrocardiogram Date: 08/04/20 Findings: + NSR @ (76) Echocardiogram Date: 07/21/19 EF: 55-59 LV Function: normal Other Findings: + LVH (moderate concentric) Valvular Disease: + no significant valvular disease Stress Test Date: 07/21/19 Type: DSE Findings: + WNL Other Testing CT SCAN OF THE ABDOMEN AND PELVIS WITH IV CONTRAST CLINICAL HISTORY: Acute pancreatitis. COMPARISON STUDY: Abdominal ultrasound dated 08/04/2020. TECHNIQUE: Following the IV administration of 89 cc of Optiray 300, CT scan of the abdomen and pelvis is performed from the lung bases to the proximal femora. Images are reviewed in the axial, sagittal, and coronal planes. IV contrast was administered without complication. A dose lowering technique was utilized adhering to the principles of ALARA. The examination is degraded by large body habitus, and by streak artifact from the body wall abutting the CT gantry. CT DOSE: 1411.46 mGy.cm FINDINGS: Lung bases: The heart is normal in size and without pericardial effusion. The lung bases are clear noting dependent atelectasis. There is a tiny hiatal hernia. Liver: The contrast-enhanced liver is enlarged, measuring 22.2 cm in length. There is no intrahepatic biliary ductal dilatation. The hepatic veins and portal veins are patent. Gallbladder: The gallbladder is distended. There are tiny calcified gallstones. The gallbladder wall is thickened and edematous, and there is associated pericholecystic inflammation. Spleen: Normal in size and attenuation. Pancreas: There is mild atrophy of the pancreas. The pancreas is edematous, with peripancreatic stranding and fluid. The appearance is consistent with acute pancreatitis. The gland enhances throughout. The duct is normal in caliber. The splenic vein is patent. No organized peripancreatic fluid collection is identified. Adrenal glands: Unremarkable. Kidneys: The contrast enhanced kidneys are normal in size and without hydronephrosis. The kidneys enhance symmetrically. Abdominal vasculature: The abdominal aorta is normal in course and caliber noting scattered foci of atherosclerotic calcification. Bowel: No bowel obstruction is seen. There is mild colonic diverticulosis without CT evidence of acute diverticulitis. The appendix is well-visualized and normal. Peritoneum: There is no intraperitoneal free air or abdominal ascites. There is a small fat-containing umbilical hernia. Lymphadenopathy: None. Pelvic viscera: The bladder, uterus, and adnexa are normal as visualized. Skeletal structures: Mild degenerative change is noted in the lumbar spine. No lytic or blastic lesions are seen. IMPRESSION: 1. Findings are consistent with acute pancreatitis. 2. The pancreas enhances throughout and no organized peripancreatic fluid collection is identified. 3. Cholelithiasis with evidence of acute cholecystitis. 4. Hepatomegaly. 5. Mild colonic diverticulosis without CT evidence of acute diverticulitis. 6. Additional findings as above. ACT 112: Negative or not required by law. Electronically signed by: Miguel Ángel Llanes M.D. 08/04/2020 4:04 PM Dictated: 08/04/20 1558Transcribed: 08/04/20 1558
[2020-08-08] MEDS: PIPERACILLIN/TAZOBACTAM 4.5 GM in DEXTROSE 5% 100 ML IV SCH ×3 (08:42→23:08)
[2020-08-08 08:46] LABS: Basophils # (auto) 0.04 K/uL (0-0.2); Basophils % (auto) 0.4 %; Eosinophils # (auto) 0.33 K/uL (0-0.5); Eosinophils % (auto) 3.4 %; Hematocrit (blood only) 39.2 % (37-47); Hemoglobin 12.3 g/dL (12.0-16.0); Immature Granulocytes # (auto) 0.03 K/uL (0.00-0.02); Immature Granulocytes % (auto) 0.3 %; Lymphocytes # (auto) 1.82 K/uL (1.2-3.4); Lymphocytes % (auto) 18.9 %; Mean Corpuscular Hemoglobin 26.2 pg (25-34); Mean Corpuscular Hgb Conc 31.4 g/dL (32-36); Mean Corpuscular Volume 83.4 fL (80-100); Mean Platelet Volume 9.4 fL (7.4-10.4); Monocytes # (auto) 0.63 K/uL (0.11-0.59); Monocytes % (auto) 6.6 %; Neutrophils # (auto) 6.76 K/uL (1.4-6.5); Neutrophils % (auto) 70.4 %; Platelet Count 319 K/uL (130-400); RDW Coefficient of Variation 15.6 % (11.5-14.5); RDW Standard Deviation 47.7 fL (36.4-46.3); White Blood Count 9.61 K/uL (4.8-10.8)
[2020-08-08] MEDS: ASPIRIN 81 MG ECTAB PO SCH (09:01)
[2020-08-08 09:20] LABS: Albumin Level 2.9 gm/dl (3.4-5.0); BUN Creatinine Ratio 12.2 (10-20); Calcium 9.1 mg/dl (8.5-10.1); Creatinine Clr Calc Pharmacy 186.6 ml/min; Est GFR (Non-African American) 118.2; Potassium 3.5 mmol/L (3.5-5.1)
[2020-08-08 09:22] LABS: Albumin Globulin Ratio 0.8 (0.9-2); Bilirubin,Total 0.6 mg/dl (0.2-1); Globulin 3.8 gm/dl (2.5-4.0); Total Protein 6.7 gm/dl (6.4-8.2)
[2020-08-08] MEDS ORDERED: fentaNYL citrate 100 MCG/2 ML VIAL ONE ×2 (10:22→12:53)
[2020-08-08] MEDS ORDERED: LIDOCAINE HCL 2% 2 ML VIAL/AMP(20MG/ML) INFIL ONE (10:22)
[2020-08-08] MEDS ORDERED: MIDAZOLAM HCL 1 MG/ML 2ML VIAL ONE (10:22)
[2020-08-08] MEDS ORDERED: PROPOFOL IV EMULSION 10 MG/ML 20 ML VIAL IV ONE (10:22)
[2020-08-08] MEDS ORDERED: ROCURONIUM BROMIDE 10 MG/ML 5 ML VIAL IV ONE ×3 (10:22→13:14)
[2020-08-08] MEDS ORDERED: LIDOCAINE HCL 1% 20 ML VIAL ONE (11:05)
[2020-08-08] MEDS ORDERED: BACITRACIN OINT 15 GM TUBE ONE (11:05)
[2020-08-08] MEDS ORDERED: BUPIVACAINE 0.5 % 5 MG/1 ML MPF 30ML VIAL ONE (11:05)
[2020-08-08] MEDS ORDERED: ceFAZolin 2000MG 2,000 MG/15 ML SYR IV ONE ×2 (11:14→11:20)
[2020-08-08] MEDS ORDERED: ceFAZolin 2,000 MG/15 ML IV PUSH IV ONE (11:18)
--- NOTE | 2020-08-08 11:19 | History & Physical Bridge Note ---
Date of Service August 08, 2020 History & Physical Bridge Note I have examined the patient, reviewed the History & Physical and in the interval since the performance of the History & Physical I have noted the following changes of clinical significance: no changes noted I did D/W benefits, risks and alternatives of the laparoscopic cholecystectomy, possible open or cholangiogram, the risks- infection, bleeding injury CBD, bowel, IN, pt understood, she agrees with the surgery, I answered all questions, Supervising Physician Co-Signing Physician Notes Patient seen and examined, labs reviewed, agree with above. 54-year-old female admitted with gallstone pancreatitis. She feels better than yesterday but still has some epigastric discomfort and is very hungry. On exam she is afebrile stable vitals. Abdomen is soft, less tender to palpation than yesterday in the epigastrium without guarding or rebound. Labs with downtrending white blood cell count. Continue clear liquids, n.p.o. after midnight. Plan for laparoscopic cholecystectomy on Saturday with Dr. Guy.
[2020-08-08] MEDS ORDERED: SCOPOLAMINE 1 MG TDSY TD ONE ×3 (11:21→11:40)
[2020-08-08] MEDS ORDERED: ePHEDrine sulfate 50 MG/ML AMP IV PRN (11:23)
[2020-08-08] MEDS ORDERED: PROMETHAZINE HCL 12.5 MG in SODIUM CHLORIDE 0.9% 50 ML IV PRN (11:23)
[2020-08-08] MEDS ORDERED: ATROPINE SULFATE 0.1 MG/ML 10ML SYR IV PRN (11:23)
[2020-08-08] MEDS ORDERED: ONDANSETRON INJ 2 MG/ML 2 ML VIAL IV PRN (11:23)
[2020-08-08] MEDS ORDERED: METOCLOPRAMIDE HCL INJ 5 MG/ML 2 ML VIAL ONE (12:13)
--- NOTE | 2020-08-08 13:24 | Post Operative Brief Note ---
Immediate Post Op Note v1 Date of Surgery August 08, 2020 Pre & Post Diagnosis Operation Date: 08/08/20 10:25 Pre-Op Diagnosis: PANCREATITIS, acute cholecystitis, cholelithiasis, Post-Op Diagnosis: PANCREATITIS, acute cholecystitis, cholelithiasis I identified the patient and participated in the time-out.: Yes Procedure Operation Date: 08/08/20 10:25 Actual Procedures p Laparoscopic Cholecystectomy(Not Applicable) - Marquis Guy MD Surgeon Marquis Guy MD Promotions Assistant KEYSHA Bobby Estimated Blood Loss 10 Findings Consistent with Post-Op Diagnosis Fluids 800ml Specimens gallbladder and lymph node Anesthesia Type General Complications none Disposition Accompanied Patient To Recovery: Yes Disposition: Recovery Room Overlapping Procedure I was immediately available: during the entire case.
[2020-08-08] MEDS: fentaNYL citrate 100 MCG/2 ML VIAL IV PRN ×2 (14:33→14:38)
[2020-08-08] MEDS ORDERED: AMOXICILLIN 500 MG CAP PO SCH (15:30)
[2020-08-08] MEDS ORDERED: FAMOTIDINE 40 MG TABLET PO PRN (15:30)
[2020-08-08] MEDS ORDERED: ALBUTEROL HFA 8 GM INHALER INH PRN (15:37)
--- NOTE | 2020-08-08 15:37 | Anesthesiology Progress Note ---
Date of Service August 08, 2020 Anesthesia Post Procedure Vital Signs Vital Signs: Temp Pulse Pulse Resp BP BP Pulse Ox 08/08/20 15:05 36.6 C 82 15 161/91 H 96 08/08/20 14:55 36.6 C 81 15 158/89 H 94 08/08/20 14:45 36.6 C 84 15 162/91 H 96 08/08/20 14:35 85 15 153/88 H 93 08/08/20 14:25 85 16 166/105 H 94 08/08/20 14:15 81 16 175/98 H 98 08/08/20 14:05 84 16 166/100 H 98 08/08/20 13:55 84 18 182/94 H 99 08/08/20 13:49 36.3 C L 84 16 165/93 H 98 08/08/20 10:55 36.9 C 79 18 155/99 H 95 08/08/20 07:45 37.1 C 79 18 139/86 93 08/07/20 22:11 36.9 C 71 16 128/83 94 08/07/20 20:43 77 16 170/92 H Pain Intensity Upper Medial Abdomen: Pain Intensity: 4 Transfer of Care Handoff Completed per policy Notes Mental Status: alert / awake / arousable and participated in evaluation Patient Amnestic to Procedure: Yes Nausea / Vomiting: adequately controlled Pain: adequately controlled Airway Patency, RR, SpO2: stable & adequate BP & HR: stable & adequate Hydration State: stable & adequate Anesthetic Complications: no major complications apparent and Pt Satisfied with anesthetic care
[2020-08-08] MEDS: LACTATED RINGER'S 1,000 ML IV SCH (15:48)
--- NOTE | 2020-08-08 16:31 | Operative Report (OR) ---
DATE OF OPERATION: 08/08/2020 PREOPERATIVE DIAGNOSES: Acute cholecystitis with cholelithiasis. POSTOPERATIVE DIAGNOSES: Acute cholecystitis with cholelithiasis. OPERATION: Laparoscopic cholecystectomy. SURGEON: Marquis Guy MD. SENIOR TECHNICAL BUSINESS ANALYST: Irish Estrada PA-C. ANESTHESIA: General. ESTIMATED BLOOD LOSS: About 10 mL. FINDINGS: Acute cholecystitis with cholelithiasis, significant inflammation on the gallbladder wall. COMPLICATIONS: None. INDICATIONS FOR THE PROCEDURE: This is a 54-year-old female who was admitted to hospital for acute cholecystitis, cholelithiasis. I recommended to do laparoscopic cholecystectomy, possible open, possible cholangiogram. I did talk to the patient about the benefit, the risk, alternate procedure. I indicated the risks may include but not limited such as bleeding, infection, injury to common bile duct, injury to the bowel, incisional hernia. The patient understands. She signed informed consent and I answered all questions. DETAILS OF PROCEDURE: After we identified the patient and verified the procedure, we brought the patient to the OR, put the patient in the supine position on the OR table. The patient received SCD on bilateral legs to prevent DVT. Also, patient received 2 grams Ancef IV for prophylactic antibiotic. The patient received general anesthesia without difficulty. Abdomen was prepped and draped in routine sterile fashion. After timeout, I injected the local anesthesia by using 1% lidocaine mixed with 0.5% Marcaine just above the umbilicus. Then I made a small incision just above the umbilicus, opened fascia and opened peritoneum under direct vision, put a Susan trocar in, connected to CO2 to create pneumoperitoneum. Flow rate was 6 liter per minute. Pressure not more than 14 mmHg. Once we got a nice pneumoperitoneum, we put the camera in, looked around the abdomen, shows normal finding on the liver. However, the gallbladder shows significant inflammation on the gallbladder wall, gallbladder wall thickening, edema, confirmed diagnosis of acute cholecystitis. Then, we put another two 5 mm trocars on the right upper quadrant, one was 11 trocar on the epigastric area. Once all trocars in, we used a grasper to hold the base of gallbladder, put in the direction to the diaphragm, another grasper to hold the pouch of gallbladder, put lateral to expunge the triangle of [place]ot. The cystic duct was identified and mobilized. I put two 10 mm metal clips on the proximal cystic duct, one on the distal cystic duct, then used a scissor for transection of cystic duct. Rechecked, no active bleeding, no bile leak. The cystic artery was identified and mobilized. I put two 10 mm metal clips on the proximal cystic artery, one on the distal cystic artery, then used a scissor for transection of cystic artery. Rechecked, no active bleeding. Then we used the Bovie to take down gallbladder from the liver bed. Rechecked and no active bleeding, no bile leak from liver bed. Then we removed gallbladder through the catch bag. Then we reinserted Susan trocar in, connected to CO2 to create pneumoperitoneum, again looked around the abdomen, no active bleeding, no bile leak from the liver bed. Then we removed all trocar under direct vision. No active bleeding from the trocar sites. Pneumoperitoneum was released, now closed the umbilical incision, the fascial layer by using 0 Vicryl [id number] x2, closed subcutaneous layer by using 2-0 Vicryl interruptedly, closed skin by using 4-0 Vicryl continuous running, closed the 11 trocar site epigastric area, fascial layer by using 0 Vicryl [id number] x2, closed subcutaneous layer by using 2-0 Vicryl interruptedly, closed skin by using 4-0 Vicryl interruptedly and closed another two 5 mm trocar site of skin only by using 4-0 Vicryl. Then, we put the dressing on. The patient tolerated the procedure well. All instrument, needle and sponge count were correct x2 at the end of the case. The patient transferred to recovery room in stable condition. Specimen sent to pathology. After the procedure, I did talk to the patient about the OR finding and the procedure we did. Also, I gave the patient postop care instruction. The patient understands. The health care legal assistant, Irish, is necessary for this procedure. Her role is to hold the camera, retraction and exposure. I attest to the content of the Intraoperative Record and any orders documented therein. Any exception s are noted below.
[2020-08-08] MEDS: CHECK SCOPOLAMINE PATCH PLACEMENT SCH ×2 (17:20→20:44)
[2020-08-08] MEDS: EZETIMIBE 10 MG TABLET PO SCH (17:20)
--- NOTE | 2020-08-08 18:37 | Hospitalist Progress Note ---
Date of Service August 08, 2020 Assessment & Plan (1) Gallstone pancreatitis: Present on admission with abdominal pain Lipase [address] abd/pelvis showed findings that are consistent with acute pancreatitis. Gallbladder u/s showed a few tiny gallstones and trace pericholecystic fluid. However, no gallbladder wall thickening MRCP showed acute pancreatitis. A few small gallstones. There is also pericholecystic fluid. This could be reactive to the acute pancreatitis or represent a developing acute cholecystitis.Normal caliber common bile duct. No stones identified within the common bile duct. Lipase decreased from 5000 to 2075->381--> 173 gastro on board recommended outpatient EUS Surgery on board plan for cholecystectomy on Saturday Tolerated clear liquid diet Will make NPO after midnight Continue gentle hydration Continue pain control Clinically improves (2) Cholelithiasis: Acute cholecystitis MRCP showed a few small gallstones. There is also pericholecystic fluid. This could be reactive to the acute pancreatitis or represent a developing acute cholecystitis. s/P Laparoscopic Cholecystectomy performed today by Dr Guy No post op complication Continue pain control Continue clear liquid diet Incentive spirometry (3) Hypertension: BP stable continue atenolol (4) Hyperlipidemia: With history of statin intolerance Continue Zetia Ok to hold Vascepa since our pharmacy does not have it in stock and pt is unable to drop it Hypokalemia Potassium 3.5 Continue monitor BMP (5) DVT prophylaxis: SCDs due to recent surgery 08/08/20 Admission and Anticipated Discharge Date Admission Date: August 04, 2020 Subjective Pt was seen and examined for follow up of pancreatitis Lying in bed with no distress She just came back from surgery for Lap chol Denies any chest pain, palpitatio, dizziness and SOB Review of Systems Review of Systems: All systems reviewed & are unremarkable except as noted in Subjective Physical Exam Physical Exam: General- No acute distress Head- atraumatic Eyes- PERRL, EOMI, ENT- oropharynx clear Neck- supple, no JVD Lungs- clear to auscultation Heart- regular rhythm; no murmur Abdomen- normal bowel sounds, +mild tenderness with deep palpation Extremities- no calf tenderness Neuro- alert, oriented x 3; PERRL, EOMI; no facial palsy; no dysarthria Skin- warm & dry Results & Data Results & Data ([facility]) Vital Signs (Past 12 Hours) Vital Signs Temp Pulse Pulse Pulse Resp BP Pulse Ox 08/08/20 17:22 36.8 C 88 16 150/88 H 91 08/08/20 16:17 36.9 C 91 H 16 173/98 H 96 08/08/20 15:50 37 C 92 H 16 172/97 H 95 08/08/20 15:20 36.8 C 78 16 136/80 96 08/08/20 15:05 36.6 C 82 15 161/91 H 96 08/08/20 14:55 36.6 C 81 15 158/89 H 94 08/08/20 14:45 36.6 C 84 15 162/91 H 96 08/08/20 14:35 85 15 153/88 H 93 08/08/20 14:25 85 16 166/105 H 94 08/08/20 14:15 81 16 175/98 H 98 08/08/20 14:05 84 16 166/100 H 98 08/08/20 13:55 84 18 182/94 H 99 08/08/20 13:49 36.3 C L 84 16 165/93 H 98 08/08/20 10:55 36.9 C 79 18 155/99 H 95 08/08/20 07:45 37.1 C 79 18 139/86 93 (1) Cholelithiasis Biliary obstruction: without biliary obstruction Cholecystitis presence: without cholecystitis Cholelithiasis location: gallbladder Qualified Code(s): K80.20 - Calculus of gallbladder without cholecystitis without obstruction
[2020-08-08] MEDS: POTASSIUM CHLORIDE 10 MEQ TABCR PO SCH (20:43)
[2020-08-08] MEDS: ATENOLOL 25 MG TABLET PO SCH (20:44)
[2020-08-08] MEDS: KETOROLAC TROMETHAMINE 15 MG/ML VIAL IV PRN (22:40)
[2020-08-08] MEDS: ONDANSETRON INJ 2 MG/ML 2 ML VIAL IV PRN (22:40)
[2020-08-09] MEDS: CHECK SCOPOLAMINE PATCH PLACEMENT SCH (05:02)
[2020-08-09] MEDS: LACTATED RINGER'S 1,000 ML IV SCH (05:42)
[2020-08-09] MEDS: KETOROLAC TROMETHAMINE 15 MG/ML VIAL IV PRN (06:22)
[2020-08-09] MEDS: ONDANSETRON INJ 2 MG/ML 2 ML VIAL IV PRN (06:22)
[2020-08-09 07:57] LABS: Basophils # (auto) 0.01 K/uL (0-0.2); Basophils % (auto) 0.1 %; Eosinophils # (auto) 0.15 K/uL (0-0.5); Eosinophils % (auto) 1.4 %; Hematocrit (blood only) 38.2 % (37-47); Hemoglobin 12.3 g/dL (12.0-16.0); Immature Granulocytes # (auto) 0.02 K/uL (0.00-0.02); Immature Granulocytes % (auto) 0.2 %; Lymphocytes # (auto) 1.93 K/uL (1.2-3.4); Lymphocytes % (auto) 18.5 %; Mean Corpuscular Hemoglobin 26.6 pg (25-34); Mean Corpuscular Hgb Conc 32.2 g/dL (32-36); Mean Corpuscular Volume 82.7 fL (80-100); Mean Platelet Volume 9.1 fL (7.4-10.4); Monocytes # (auto) 0.88 K/uL (0.11-0.59); Monocytes % (auto) 8.4 %; Neutrophils # (auto) 7.43 K/uL (1.4-6.5); Neutrophils % (auto) 71.4 %; Platelet Count 349 K/uL (130-400); RDW Coefficient of Variation 15.4 % (11.5-14.5); RDW Standard Deviation 46.9 fL (36.4-46.3); Red Blood Count 4.62 M/uL (4.2-5.4); White Blood Count 10.42 K/uL (4.8-10.8)
[2020-08-09 08:24] LABS: Albumin Level 2.8 gm/dl (3.4-5.0); BUN Creatinine Ratio 12.5 (10-20); Calcium 8.9 mg/dl (8.5-10.1); Creatinine Clr Calc Pharmacy 173.3 ml/min; Est GFR (African American) 133.7; Est GFR (Non-African American) 115.4; Potassium 3.1 mmol/L (3.5-5.1)
[2020-08-09 08:27] LABS: Albumin Globulin Ratio 0.7 (0.9-2); Bilirubin,Total 0.6 mg/dl (0.2-1); Total Protein 6.8 gm/dl (6.4-8.2)
[2020-08-09] MEDS ORDERED: POTASSIUM CHLORIDE CRTAB 20 MEQ TABCR PO STA (08:48)
[2020-08-09] MEDS ORDERED: FUROSEMIDE 20 MG TAB PO SCH (09:00)
[2020-08-09] MEDS: PIPERACILLIN/TAZOBACTAM 4.5 GM in DEXTROSE 5% 100 ML IV SCH ×2 (09:02→14:31)
[2020-08-09] MEDS: ASPIRIN 81 MG ECTAB PO SCH (09:06)
[2020-08-09] MEDS: POTASSIUM CHLORIDE 10 MEQ TABCR PO SCH (09:06)
--- NOTE | 2020-08-09 12:01 | Progress Note ---
Date of Service F/U S/P laparoscopic cholecystectomy, POD 1 pt is doing fine, no significant abdominal pain, tolerated clear diet, no nausea, no vomiting, August 09, 2020 Assessment & Plan (1) Gallstone pancreatitis: t. bili and lfts wnl. lipase down to 2,000 (5566 yesterday) MRCP negative for choledocholithiasis but possibly developing acute cholecystitis abdominal pain improved leukocytosis improved to 13k (15K) Plan: Given concern for possible cholecystitis will add IV Zosyn Patient would like to proceed with cholecystectomy. Will plan for Lap kyree with cholangiogram on Saturday with Dr. Guy. Will obtain consent prior. Trend LFTS and lipase okay for clear liquids advised to go slowly Per GI note, can decrease IV Fluids once taking PO liquids well OOB to chair and ambulate continue medical management Dr. Guy was present during my examination and agrees with above. 08/09/2020 11:58AM S/P lap kyree POD 1 doing fine, pt can be discharged home today, - keep the dressing on for 4 days, - no heavy lifting >25 LBS for 4 weeks, - F/U ia 2 weeks, sign off today, please call me with questions, Thanks, Admission and Anticipated Discharge Date Admission Date: August 04, 2020 Supervising Physician Co-Signing Physician Notes Patient seen and examined, labs reviewed, agree with above. 54-year-old female admitted with gallstone pancreatitis. She feels better than yesterday but still has some epigastric discomfort and is very hungry. On exam she is afebrile stable vitals. Abdomen is soft, less tender to palpation than yesterday in the epigastrium without guarding or rebound. Labs with downtrending white blood cell count. Continue clear liquids, n.p.o. after midnight. Plan for laparoscopic cholecystectomy on Saturday with Dr. Guy. Subjective Pt was seen and examined for follow up of pancreatitis Lying in bed with no distress She just came back from surgery for Lap chol Denies any chest pain, palpitatio, dizziness and SOB Review of Systems Constitutional: obesity Eyes: as per Subjective / HPI Ear, Nose, Mouth, Throat: as per Subjective / HPI Respiratory: as per Subjective / HPI Cardiovascular: as per Subjective / HPI Additional Comments: HTN Gastrointestinal: as per Subjective / HPI GERD, hiatal hernia Genitourinary: as per Subjective / HPI Musculoskeletal: as per Subjective / HPI Integumentary: as per Subjective / HPI Neurologic: as per Subjective / HPI Psychiatric: as per Subjective / HPI Endocrine: as per Subjective / HPI Hematologic / Lymphatic: as per Subjective / HPI Physical Exam Constitutional: WD/WN, vitals as above well developed and well nourished Eyes: PERRL, conjunctivae normal, anicteric sclerae ENMT: external ear and nose normal, oropharynx normal Neck: trachea midline, no thyromegaly Respiratory: normal respiratory effort, lungs clear to auscultation normal respiratory effort Cardiovascular: RRR, no murmur, no edema Rate/Rhythm: regular rate and regular rhythm Gastrointestinal (Abdomen): normal bowel sounds, soft, nontender, no hepatosplenomegaly Percussion/Palpation: abdomen soft soft, NT, ND, all incisions intact, no redness, Musculoskeletal: no cyanosis or clubbing, extremities motor strength 5/5 Skin: no rashes, warm and dry Neurologic: awake Psychiatric: Orientation: alert and oriented x 3 Results & Data ([facility]) Vital Signs (Past 12 Hours) Vital Signs Temp Pulse Resp BP Pulse Ox 08/09/20 07:15 37.1 C 77 16 124/76 94 08/09/20 03:11 37.4 C 67 16 143/72 H 93 Laboratory Results Abnormal lab results 08/09/20 08/09/20 Range/Units 07:25 07:25 RDW Std Deviation 46.9 H (36.4-46.3) fL RDW Coeff of Ce 15.4 H (11.5-14.5) % Neut # (Auto) 7.43 H (1.4-6.5) K/uL [place] # (Auto) 0.88 H (0.11-0.59) K/uL Potassium 3.1 L (3.5-5.1) mmol/L BUN 5 L (7-18) mg/dl Creatinine 0.42 L (0.6-1.2) mg/dl Glucose 110 H (70-99) mg/dl Albumin 2.8 L (3.4-5.0) gm/dl Albumin/Globulin Ratio 0.7 L (0.9-2)
--- NOTE | 2020-08-09 14:34 | Discharge Summary ---
Date of Service August 09, 2020 Admission HPI Per Admitting Provider 54-year-old female with PMH HTN, dyslipidemia, statin intolerance, and other problems listed below who presents to the ED for evaluation abdominal pain. Patient reports she woke up around 2 AM and had epigastric discomfort. Turner like her symptoms were due to indigestion or possibly constipation. Patient reports she took a stool softener without much relief in her symptoms. Epigastric pain continued throughout the day and started to radiate through into her back. She rates the pain as a #8/10. Describes the pain as a burning sensation and constant. She reports associated nausea however no vomiting. Reports a normal bowel movement this morning. No bright bleeding per rectum or dark tarry stools. Denies fevers and chills. No lightheadedness, dizziness, diaphoresis, syncopal events. Denies urinary symptoms. In the ED, labs show WBC 13 K, AST 54, lipase 5000. Gallbladder ultrasound shows 1 cm dilated CBD and evidence of gallstones. CT ABD/pelvis shows findings of pancreatitis and cholelithiasis. Patient was given IV Dilaudid, IV Zofran, IVF. Admission Exam Per Admitting Provider Constitutional: WD/WN, vitals as above + obese Eyes: PERRL, conjunctivae normal, anicteric sclerae ENMT: external ear and nose normal, oropharynx normal Respiratory: normal respiratory effort, lungs clear to auscultation Cardiovascular: regular rate and regular rhythm Vessels: normal peripheral pulses Extremities: no edema Gastrointestinal: normal bowel sounds, soft, nontender, no hepatosplenomegaly Musculoskeletal: no cyanosis or clubbing, extremities motor strength 5/5 Skin: no rashes, warm and dry Neurologic: PERRL, EOMI, accommodation nl, no face palsy, no dysarthria Psychiatric: A+Ox3, euthymic affect Principal Diagnosis Gallstone pancreatitis: Cholelithiasis: Hypertension: Hyperlipidemia: Hypokalemia Discharge Exam General- No acute distress Head- atraumatic Eyes- PERRL, EOMI, ENT- oropharynx clear Neck- supple, no JVD Lungs- clear to auscultation Heart- regular rhythm; no murmur Abdomen- normal bowel sounds, +mild tenderness with deep palpation Extremities- no calf tenderness Neuro- alert, oriented x 3; PERRL, EOMI; no facial palsy; no dysarthria Skin- warm & dry Discharge Data Allergies Allergy/AdvReac Type Severity Reaction Status Date / Time Gvapbde-Srz-Awu Reductase AdvReac Mild Cramping Verified 08/04/20 13:48 Inhibitor of the Muscles Consultations 08/04/20 16:06 ED Decision to Admit Stat 08/04/20 17:55 Consult Gastroenterology Routine Consult General Surgery Routine Procedures Performed Operation Date: 08/08/20 10:25 Actual Procedures p Laparoscopic Cholecystectomy(Not Applicable) - Marquis Guy MD MR MRCP HISTORY: Upper abdominal pain. gallstone pancreatitis TECHNIQUE: MRCP of the abdomen was performed without contrast according to standard departmental protocol. COMPARISON STUDY: Abdomen and pelvis CT 08/04/2020. FINDINGS: There is mild motion artifact. The lung bases are clear. The pancreas is edematous with mild peripancreatic edema/fluid. Findings are consistent with acute pancreatitis. Mild perinephric edema which is likely reactive. No hydronephrosis. The adrenal glands unremarkable. No hepatic or splenic masses. No retroperitoneal lymphadenopathy. Normal caliber abdominal aorta. Pericholecystic fluid with a few punctate gallstones. Normal caliber common bile duct measuring up to 5 mm. No filling defects within the common bile duct to suggest a stone. The main pancreatic duct is suboptimally assessed due to the motion artifact. However, the main pancreatic duct appears to be normal and cou rse and caliber. No intrahepatic bile duct dilatation. IMPRESSION: 1. Acute pancreatitis. 2. A few small gallstones. There is also pericholecystic fluid. This could be reactive to the acute pancreatitis or represent a developing acute cholecystitis. 3. Normal caliber common bile duct. No stones identified within the common bile duct. 4. The main pancreatic duct appears normal in course and caliber. ACT 112: Negative or not required by law. Electronically signed by: Paul Arredondo M.D. 08/05/2020 8:17 AM Dictated: 08/05/20812Transcribed: 08/05/20812 CT SCAN OF THE ABDOMEN AND PELVIS WITH IV CONTRAST CLINICAL HISTORY: Acute pancreatitis. COMPARISON STUDY: Abdominal ultrasound dated 08/04/2020. TECHNIQUE: Following the IV administration of 89 cc of Optiray 300, CT scan of the abdomen and pelvis is performed from the lung bases to the proximal femora. Images are reviewed in the axial, sagittal, and coronal planes. IV contrast was administered without complication. A dose lowering technique was utilized adhering to the principles of ALARA. The examination is degraded by large body habitus, and by streak artifact from the body wall abutting the CT gantry. CT DOSE: 1411.46 mGy.cm FINDINGS: Lung bases: The heart is normal in size and without pericardial effusion. The lung bases are clear noting dependent atelectasis. There is a tiny hiatal hernia. Liver: The contrast-enhanced liver is enlarged, measuring 22.2 cm in length. There is no intrahepatic biliary ductal dilatation. The hepatic veins and portal veins are patent. Gallbladder: The gallbladder is distended. There are tiny calcified gallstones. The gallbladder wall is thickened and edematous, and there is associated pericholecystic inflammation. Spleen: Normal in size and attenuation. Pancreas: There is mild atrophy of the pancreas. The pancreas is edematous, with peripancreatic stranding and fluid. The appearance is consistent with acute pancreatitis. The gland enhances throughout. The duct is normal in caliber. The splenic vein is patent. No organized peripancreatic fluid collection is identified. Adrenal glands: Unremarkable. Kidneys: The contrast enhanced kidneys are normal in size and without hydronephrosis. The kidneys enhance symmetrically. Abdominal vasculature: The abdominal aorta is normal in course and caliber noting scattered foci of atherosclerotic calcification. Bowel: No bowel obstruction is seen. There is mild colonic diverticulosis without CT evidence of acute diverticulitis. The appendix is well-visualized and normal. Peritoneum: There is no intraperitoneal free air or abdominal ascites. There is a small fat-containing umbilical hernia. Lymphadenopathy: None. Pelvic viscera: The bladder, uterus, and adnexa are normal as visualized. Skeletal structures: Mild degenerative change is noted in the lumbar spine. No lytic or blastic lesions are seen. IMPRESSION: 1. Findings are consistent with acute pancreatitis. 2. The pancreas enhances throughout and no organized peripancreatic fluid collection is identified. 3. Cholelithiasis with evidence of acute cholecystitis. 4. Hepatomegaly. 5. Mild colonic diverticulosis without CT evidence of acute diverticulitis. 6. Additional findings as above. ACT 112: Negative or not required by law. Electronically signed by: Miguel Ángel Llanes M.D. 08/04/2020 4:04 PM Dictated: 08/04/208Transcribed: 08/04/201557 ABDOMINAL ULTRASOUND, RIGHT UPPER QUADRANT HISTORY: Epigastric pain. COMPARISON: None. FINDINGS: Pancreas: The pancreas demonstrates a normal echotexture. Liver: The liver is echogenic consistent with fatty change. Gallbladder: A few tiny stones and trace pericholecystic fluid. No significant gallbladder wall thickening. A sonographic Wren's sign was unable to be assessed due to the patient's recent pain medication. CBD: 1 cm. Right kidney: No hydronephrosis. IMPRESSION: 1. A few tiny gallstones and trace pericholecystic fluid. However, no gallbladder wall thickening. Therefore, these findings are indeterminate for acute cholecystitis. 2. Dilated common bile duct up to 1 cm. This raises the possibility of an obstructive process. Consider ERCP, MRCP or nuclear medicine HIDA scan for further evaluation. 3. Mild hepatic steatosis. ACT 112: Negative or not required by law. Electronically signed by: Paul Arredondo M.D. 08/04/2020 3:15 PM Dictated: 08/04/20 1512Transcribed: 08/04/20 1512 Ordered Studies 08/04/20 13:04 US gallbladder Stat 08/04/20 15:36 CT abd pelvis IV con only Stat 08/04/20 17:55 MR MRCP Routine Hospital Course (1) Gallstone pancreatitis: Present on admission with abdominal pain Lipase [address] abd/pelvis showed findings that are consistent with acute pancreatitis. Gallbladder u/s showed a few tiny gallstones and trace pericholecystic fluid. However, no gallbladder wall thickening MRCP showed acute pancreatitis. A few small gallstones. There is also pericholecystic fluid. This could be reactive to the acute pancreatitis or represent a developing acute cholecystitis.Normal caliber common bile duct. No stones identified within the common bile duct. Lipase decreased from 5000 to 2076->381--> 173 gastro on board recommended outpatient EUS Surgery on board Tolerated Low fiber diet Continue pain control Clinically improves (2) Cholelithiasis: Acute cholecystitis MRCP showed a few small gallstones. There is also pericholecystic fluid. This could be reactive to the acute pancreatitis or represent a developing acute cholecystitis. s/P day 1 Laparoscopic Cholecystectomy performed by Dr Guy No post op complication Continue pain control Tolerated low fiber diet Incentive spirometry Pt was advised not to lift more than 25 LBS weight in the next 4 weeks Follow up with surgery in 2 weeks Ok from surgery standpoint to discharge home (3) Hypertension: BP stable continue atenolol (4) Hyperlipidemia: With history of statin intolerance Continue Zetia Ok to hold Vascepa since our pharmacy does not have it in stock and pt is unable to drop it Hypokalemia Potassium 3.5 Continue K supplement Continue monitor BMP (5) DVT prophylaxis: SCDs due to recent surgery 08/08/20 Total Time Total Time Spent Total Time Spent (In Minutes): 35 minutes Total Time Includes: Examination of the Patient, Discharge Planning, Medication Reconciliation, Communication With Other Providers and Other Discharge Plan Discharge Items Patient Disposition: Home - Self-Care Reason For Visit: PANCREATITIS Discharge Diagnosis: Gallstone pancreatitis: Cholelithiasis: Hypertension: Hyperlipidemia: Hypokalemia Activity: Resume your previous activity Lifting: No more than 10 pounds Non-emergency contact: Primary Care Provider and Surgeon Call non-emergency contact if: you have any medication questions Follow-up/Referrals: Clinton Avilez MD [Primary Care Provider] - 08/15/20 3:00 pm (Date & Time 08/15/2020 3:00 PM Provider Clinton Avilez MD Department Internal Medicine [facility] ) Diet: Heart Healthy and Low Fiber Addtl Attending Provider Instructions: Follow up with your primary care provider Dr. Avilez on 08/15/2020 at3:00 PM at the Internal Medicine [facility] Follow up with surgery Dr. Guy in 1-2 weeks (Please call [phone] to schedule for the appointment) Follow up with gastroenterology to arrange for endoscopy ultrasound Keep the dressing on for 4 days No heavy lifting over 25 pounds for 4 weeks No strenuous activity until cleared by surgeon No submerging incisions underwater for 2 weeks (no swimming, bathing, hot tubs) but you may shower and gently clean the incisions with soap and water and pat dry. Walking and light activities encouraged daily to prevent blood clots from forming. You may take extra strength Tylenol or ibuprofen as needed for mild pain Follow-up in surgical office in 1-2 weeks. Please call office at [phone] to make an appointment. Check BMP in 1 week to monitor your electrolytes Pending Studies at Discharge: No Stand-Alone Forms: My [facility], Work/School Release (Inpt), Smoking Cessation Medications and DC Order Prescriptions: Continued amoxicillin 500 mg Capsule 2,000 mg PO UD RF: 0 famotidine 40 mg Tablet 40 mg PO BID PRN (Reason: Acid Reflux) RF: 0 atenolol 25 mg Tablet 25 mg PO HS RF: 0 potassium chloride 10 mEq Tablet Extended Release 10 meq PO BID RF: 0 aspirin 81 mg Tablet,Delayed Release (Dr/Ec) 81 mg PO QAM RF: 0 furosemide 20 mg Tablet 20 mg PO QAM RF: 0 albuterol sulfate [ProAir HFA] 90 mcg/actuation Hfa Aerosol Inhaler 1 inh INHALATION QID PRN (Reason: sob) RF: 0 ezetimibe [Zetia] 10 mg Tablet 10 mg PO QDD RF: 0 icosapent ethyl 1 gram Capsule 2 g PO BID RF: 0 Discharge Orders: Discharge Order (Routine); Ordered 08/09/20 Ordered By: Danielle Alves Admission Data Admit Date/Time: 08/04/20 16:19 Attending Provider: Danielle Alves Admit Provider: Danielle Alves Primary Care Provider: Clinton Avilez Other Providers: Danielle Alves ; Pili Grant ; Marquis Guy Other Interventions: Discharge Summary Assessment (RN) Last Done: 08/09/20 14:37
== END 2020-08-09 16:13 | disposition home or self-care (01) | DRG 417 ==
LOC: ED 11:34 → 3N 16:19

== ENCOUNTER 2022-04-18 21:33 | Inpatient (IN) ==
[2022-04-18] MEDS ORDERED: dilTIAZem HCl 5 MG/ML 5 ML VIAL IV STA (22:09)
[2022-04-18] MEDS ORDERED: STAT IV Infusion **Titration per Protocol STA (22:09)
--- NOTE | 2022-04-18 22:12 | Emergency Department Note ---
Impression & Plan Atrial fibrillation with rapid ventricular response, Hypokalemia, Fluid overload ED Provider Note Provider: Jerel Mak MD DATE OF SERVICE: 04/18/2022 CHIEF COMPLAINT: Elevated blood pressure and heart rate HISTORY OF PRESENT ILLNESS: Patient is a 46-year-old female history of hypertension, pancreatitis, as well as some edema presenting here today noting that over the past several weeks she has been having increased blood pressure. Has been following this and started on spironolactone as well as increased Lasix. Has some increased leg swelling. Significantly however today while at work noted that she was feeling bit off and her blood pressure was high. Denies falls. Denies significant fever or URI symptoms recently. Patient reports he got little bit better and then worsened this evening with some palpitation symptoms. Patient denies any history of A. fib or arrhythmias but states a family history in mother of A. fib. Denies feeling significantly short of breath. 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 NECK: Trachea midline. ENT: Mucous membranes pink and moist. LUNGS: Airway patent. No retractions. Breath sounds clear with good air entry bilaterally. HEART: Irregular regular tachycardic rate and rhythm. No chest wall tenderness ABDOMEN: Soft and non-tender, without guarding or rebound. SKIN: Acyanotic, warm, dry, without rashes EXTREMITIES: Deformity with 1+ bilateral pedal edema. NEUROLOGICAL: No focal deficits. No aphasia. No facial droop or slurred speech. Ambulatory. EK bpm atrial fibrillation with upper ventricular response. No acute ST segment elevation with some nonspecific inferior lateral ST depressions. QTc 466. CONTINUOUS CARDIAC MONITORING: was ordered and showed a heart rate of 110s-150s bpm in atrial fibrillation 1 view chest x-ray per interpretation: Question some mild pulmonary edema. No pneumothorax. No pneumonia. Patient's laboratory studies and imaging reviewed. Differential includes Premature contractions, electrolyte abnormality, cardiac dysrhythmia, thyroid dysfunction, pulmonary embolism, infection, as well as other pathologies. IMPRESSION/MEDICAL DECISION MAKING: Patient without history of A. fib but significant A. fib with RVR noted on EKG here. Some chronic edema reported. Unsure how much this is related to possibly intermittent paroxysmal A. fib versus is incidental with the onset of A. fib just today. Patient significant symptomatic today however. Basic blood work and thyroid function electrolytes were sent. COVID test sent although not reporting significant URI symptoms. Chest x-ray completed look for signs of pulmonary edema. Lower suspicion for PE. No significant calf tenderness and doubt DVT. Given some diltiazem for rate control. Chest x-ray does question a little bit of pulmonary edema. Not hypoxic and is on Lasix already. Given a small additional IV dose tonight. No severe electrolyte abnormality low potassium is mildly low and will replete. Troponin not elevated. Still with some difficult rate control. Discussed with her starting anticoagulation and admission for further cardiac evaluation and care. Hospitalist contacted. DIAGNOSIS: New onset atrial fibrillation with rapid ventricular response, hypokalemia, fluid overload DISPOSITION: Hospitalist will evaluate Patient was agreeable with this plan. Critical Care I have personally spent 42 minutes of critical care time in the direct management of this patient. This includes bedside care, interpretation of diagnostic studies, and testing, discussion with consultants, patient, and family members, and other required patient management activities. These 42 minutes is in excess of all separately billable procedures. Past Med/Surg History Medical History (Updated 04/18/22 @ 23:02 by Jerel Mak M.D.) Acute pancreatitis Cholelithiasis Gallstone pancreatitis GERD (gastroesophageal reflux disease) Hiatal hernia Morbid obesity Osteoarthritis Surgical History History of total bilateral knee replacement (TKR) Hx of section Family History Mother Heart disease Father Heart disease Social History Smoking Status: Never smoker Second Hand Exposure: No; Hx Alcohol Use: Yes Alcohol type: beer, wine and hard liquor Alcohol Intake Frequency: 2-4 x/Month Hx Substance Use: No Preferred Language: Macedonian Communication Ability: Effective Coat Tailor Required: No Beliefs That Will Affect Care: None Current Living Situation: Spouse Feels Safe at Home: Yes Assistive Devices: None Allergies Allergies Allergy/AdvReac Type Severity Reaction Status Date / Time Nonuaqi-EOG-FiP Reductase AdvReac Mild Cramping Verified 04/19/22 00:23 Inhibitor of the [Saluhdo-Wlg-Lmt Reductase Muscles Inhibitor] Home Meds Home Medications Medication Instructions Recorded Confirmed aspirin 81 mg tablet,delayed 81 mg PO QAM 12/18/19 04/19/22 release (Marina Low Dose Aspirin) atenolol 25 mg tablet (Tenormin) 25 mg PO HS 12/18/19 04/19/22 furosemide 20 mg tablet (Lasix) 20 mg PO QAM 12/18/19 04/19/22 spironolactone 25 mg tablet 12.5 mg PO QAM 04/19/22 04/19/22 Results & Data (ED) Vital Signs Vital Signs - 24 hr 04/18/22 21:38 04/18/22 22:05 04/18/22 22:05 Temperature 36.6 C Temperature Source Temporal Artery Scan Pulse Rate 140 H Pulse Rate [Right Finger] 144 H Pulse Rhythm [Right Finger] Irregular Respiratory Rate 18 Respiratory Effort / Characteristics Non-Labored Respiratory Depth Normal Blood Pressure 216/130 H Blood Pressure [Right Arm] 157/117 H Blood Pressure Mean 158 Blood Pressure Mean [Right Arm] 130 Pulse Oximetry 95 97 97 Oxygen Delivery Method Room Air Room Air Room Air Sepsis Recent Fever Within 48 Hours No Sepsis New/Unexplained Change in Mental Status No Sepsis Action Taken by Nursing No Action Required Pulse Oximetry Post Tiitration 04/18/22 22:28 Temperature Temperature Source Pulse Rate Pulse Rate [Right Finger] Pulse Rhythm [Right Finger] Respiratory Rate Respiratory Effort / Characteristics Respiratory Depth Blood Pressure Blood Pressure [Right Arm] Blood Pressure Mean Blood Pressure Mean [Right Arm] Pulse Oximetry Oxygen Delivery Method Room Air Sepsis Recent Fever Within 48 Hours Sepsis New/Unexplained Change in Mental Status Sepsis Action Taken by Nursing Pulse Oximetry Post Tiitration 98 Laboratory Data 04/18/22 21:53 04/18/22 21:53 Lab Results 04/18/22 04/18/22 04/18/22 Range/Units 21:53 21:53 21:53 WBC 14.11 H (4.8-10.8) K/ul RBC 5.55 H (3.93-5.22) M/uL Hgb 15.1 (12.0-16.0) g/dl Hct 46.0 H (34.1-44.9) % MCV 82.9 (80.0-100.0) fL MCH 27.2 (25.0-34.0) pg MCHC 32.8 (32.0-36.0) g/dL RDW Std Deviation 43.0 (36.4-46.3) fL RDW Coeff of Ce 14.4 (11.5-14.5) % Plt Count 394 (130-400) K/uL MPV 9.1 L (9.4-12.3) fL Immature Gran % (Auto) 0.8 % Neut % (Auto) 58.0 % Lymph % (Auto) 33.9 % Appling % (Auto) 5.5 % Eos % (Auto) 1.2 % Baso % (Auto) 0.6 % Neut # (Auto) 8.18 H (1.4-6.5) K/uL Lymph # (Auto) 4.79 H (1.2-3.4) K/uL Appling # (Auto) 0.78 (0.24-0.82) K/uL Eos # (Auto) 0.17 (0-0.50) K/uL Baso # (Auto) 0.08 (0-0.2) K/uL Immature Gran # (Auto) 0.11 H (0.00-0.02) K/uL PT 10.6 (9.0-12.0) Seconds INR 1.0 (0.9-1.1) APTT 26.7 (21.0-31.0) Seconds PTT Ratio 1.0 Sodium 139 (136-145) mmol/L Potassium 3.1 L (3.5-5.1) mmol/L Chloride 98 (98-107) mmol/L Carbon Dioxide 28 (21-32) mmol/L Anion Gap 13 H (3-11) BUN 14 (6-23) mg/dl Creatinine 0.73 (0.6-1.2) mg/dl Est Cr Clr Drug Dosing 100.9 ml/min Est GFR ( Amer) 106.0 ml/min Est GFR (Non-Af Amer) 91.4 ml/min BUN/Creatinine Ratio 19.2 (10-20) Glucose 195 H (70-99(Fasting)) mg/dl Calcium 9.7 (8.5-10.1) mg/dl Magnesium 2.2 (1.7-2.4) mg/dl Total Bilirubin 0.5 (0.2-1.0) mg/dl AST 20 (13-39) U/L ALT 20 (7-52) U/L Alkaline Phosphatase 79 (34-104) U/L Troponin I High Sens 10.8 (0-14) pg/ml Total Protein 7.9 (6.0-8.3) gm/dl Albumin 4.5 (3.4-5.0) gm/dl Globulin 3.4 (2.5-4.0) gm/dl Albumin/Globulin Ratio 1.3 (0.9-2) TSH (0.300-4.500) uIu/ml Free T4 (0.61-1.60) ng/dl SARS-CoV-2, RNA, NAAT (NEGATIVE) 04/18/22 04/18/22 Range/Units 21:53 22:10 WBC (4.8-10.8) K/ul RBC (3.93-5.22) M/uL Hgb (12.0-16.0) g/dl Hct (34.1-44.9) % MCV (80.0-100.0) fL MCH (25.0-34.0) pg MCHC (32.0-36.0) g/dL RDW Std Deviation (36.4-46.3) fL RDW Coeff of Ce (11.5-14.5) % Plt Count (130-400) K/uL MPV (9.4-12.3) fL Immature Gran % (Auto) % Neut % (Auto) % Lymph % (Auto) % Appling % (Auto) % Eos % (Auto) % Baso % (Auto) % Neut # (Auto) (1.4-6.5) K/uL Lymph # (Auto) (1.2-3.4) K/uL Appling # (Auto) (0.24-0.82) K/uL Eos # (Auto) (0-0.50) K/uL Baso # (Auto) (0-0.2) K/uL Immature Gran # (Auto) (0.00-0.02) K/uL PT (9.0-12.0) Seconds INR (0.9-1.1) APTT (21.0-31.0) Seconds PTT Ratio Sodium (136-145) mmol/L Potassium (3.5-5.1) mmol/L Chloride (98-107) mmol/L Carbon Dioxide (21-32) mmol/L Anion Gap (3-11) BUN (6-23) mg/dl Creatinine (0.6-1.2) mg/dl Est Cr Clr Drug Dosing ml/min Est GFR ( Amer) ml/min Est GFR (Non-Af Amer) ml/min BUN/Creatinine Ratio (10-20) Glucose (70-99(Fasting)) mg/dl Calcium (8.5-10.1) mg/dl Magnesium (1.7-2.4) mg/dl Total Bilirubin (0.2-1.0) mg/dl AST (13-39) U/L ALT (7-52) U/L Alkaline Phosphatase (34-104) U/L Troponin I High Sens (0-14) pg/ml Total Protein (6.0-8.3) gm/dl Albumin (3.4-5.0) gm/dl Globulin (2.5-4.0) gm/dl Albumin/Globulin Ratio (0.9-2) TSH 5.428 H (0.300-4.500) uIu/ml Free T4 0.83 (0.61-1.60) ng/dl SARS-CoV-2, RNA, NAAT NEGATIVE (NEGATIVE) Administered Medications Diltiazem HCl 125 mg/ Dextrose 125 mls @ 5 mls/hr IV .Q24H [facility]; Protocol Stop: 05/18/22 22:14 Last Titration: 04/19/22 00:39 Dose: 15 mg/hr, 15 mls/hr Documented By: KEY Co-signed By: LUCIANA Titration: 04/18/22 22:50 Dose: 10 mg/hr, 10 mls/hr Documented By: KELLEE Co-signed By: KEY Admin: 04/18/22 22:19 Dose: 5 mg/hr, 5 mls/hr Documented By: KELLEE Co-signed By: KEY Heparin Sodium/Dextrose (Heparin Sodium/Dextrose) 25,000 units in 500 mls @ 27 mls/hr IV .[id number] [facility]; Protocol Stop: 05/18/22 23:14 Last Admin: 01/04/23 23:43 Dose: 27 units/hr, 0.5 mls/hr Documented By: KEY Co-signed By: VEL Potassium Chloride (K Chris / Wtr) 10 meq in 100 mls @ 100 mls/hr IV Q1H [facility]; Protocol Stop: 04/19/22 00:59 Last Admin: 04/18/22 23:17 Dose: 100 mls/hr Documented By: KEY Discontinued Medications Diltiazem HCl (Diltiazem Hcl 5 Mg/Ml 5 Ml Vial) 10 mg IV NOW STA Stop: 04/18/22 22:10 Last Admin: 04/18/22 22:18 Dose: 10 mg Documented By: KELLEE Co-signed By: KEY Furosemide (Furosemide Inj 20 Mg/2 Ml Vial) 20 mg IV ONE ONE Stop: 04/18/22 22:58 Last Admin: 04/18/22 23:16 Dose: 20 mg Documented By: KEY Heparin Sodium (Porcine) (Heparin Sod (Porcine) 1000 Unit/Ml) 1 units IV NOW ONE Stop: 04/18/22 23:13 Last Admin: 04/18/22 23:43 Dose: 6,000 units Documented By: KEY Co-signed By: VEL Heparin Sodium/Dextrose (Heparin Iv Adult Wt-Based Standard With Bolus Protocol) 1 each IV NOW STA; Protocol Stop: 04/18/22 22:58 Last Admin: 04/18/22 23:44 Dose: Not Given Documented By: KEY Miscellaneous (Stat Iv Infusion Titration Per Protocol) 1 each N/A NOW STA Stop: 04/18/22 22:10 Last Admin: 04/18/22 22:34 Dose: Not Given Documented By: KEY Potassium Chloride (Potassium Chloride Crtab 20 Meq Tabcr) 40 meq PO NOW STA Stop: 04/18/22 22:58 Last Admin: 04/18/22 23:17 Dose: 40 meq Documented By: KEY Discharge Plan Visit Data Chief Complaint: Chest Pain Stated Complaint: CHEST PAIN, BACK PAIN, ELEVATED HEART RATE ED Provider: Jerel Mak Discharge Problem: Atrial fibrillation with rapid ventricular response, Hypokalemia, Fluid overload Patient Disposition: Being Evaluated by Hospitalist Discharge Instructions Interventions: ED Discharge Assessment Last Done: 04/19/22 00:47 : Fluid overload Qualifiers: Hypervolemia type: other Qualified Code(s): E87.79 - Other fluid overload
[2022-04-18 22:16] LABS: Basophils # (auto) 0.08 K/uL (0-0.2); Basophils % (auto) 0.6 %; Eosinophils # (auto) 0.17 K/uL (0-0.50); Eosinophils % (auto) 1.2 %; Hemoglobin 15.1 g/dl (12.0-16.0); Immature Granulocytes # (auto) 0.11 K/uL (0.00-0.02); Immature Granulocytes % (auto) 0.8 %; Lymphocytes # (auto) 4.79 K/uL (1.2-3.4); Lymphocytes % (auto) 33.9 %; Mean Corpuscular Hemoglobin 27.2 pg (25.0-34.0); Mean Corpuscular Hgb Conc 32.8 g/dL (32.0-36.0); Mean Corpuscular Volume 82.9 fL (80.0-100.0); Mean Platelet Volume 9.1 fL (9.4-12.3); Monocytes # (auto) 0.78 K/uL (0.24-0.82); Monocytes % (auto) 5.5 %; Neutrophils # (auto) 8.18 K/uL (1.4-6.5); Platelet Count 394 K/uL (130-400); RDW Coefficient of Variation 14.4 % (11.5-14.5); Red Blood Count 5.55 M/uL (3.93-5.22); White Blood Count 14.11 K/ul (4.8-10.8)
[2022-04-18] MEDS: dilTIAZem HCL 125 MG in DEXTROSE 5% 100 ML IV SCH (22:19)
[2022-04-18 22:36] LABS: Partial Thromboplastin Time 26.7 Seconds (21.0-31.0); Prothrombin Time 10.6 Seconds (9.0-12.0)
[2022-04-18 22:44] LABS: Albumin Globulin Ratio 1.3 (0.9-2); Albumin Level 4.5 gm/dl (3.4-5.0); BUN Creatinine Ratio 19.2 (10-20); Bilirubin,Total 0.5 mg/dl (0.2-1.0); Calcium 9.7 mg/dl (8.5-10.1); Creatinine Clr Calc Pharmacy 100.9 ml/min; Est GFR (Non-African American) 91.4 ml/min; Globulin 3.4 gm/dl (2.5-4.0); Magnesium 2.2 mg/dl (1.7-2.4); Potassium 3.1 mmol/L (3.5-5.1); Total Protein 7.9 gm/dl (6.0-8.3)
[2022-04-18 22:45] LABS: Troponin I High Sensitivity 10.8 pg/ml (0-14)
[2022-04-18 22:54] LABS: Thyroid Stimulating Hormone 5.428 uIu/ml (0.300-4.500)
[2022-04-18] MEDS ORDERED: POTASSIUM CHLORIDE CRTAB 20 MEQ TABCR PO STA (22:57)
[2022-04-18] MEDS ORDERED: FUROSEMIDE INJ 20 MG/2 ML VIAL IV ONE (22:57)
[2022-04-18] MEDS ORDERED: Heparin IV Adult Wt-Based Standard WITH Bolus Protocol IV STA (22:57)
[2022-04-18] MEDS ORDERED: HEPARIN SOD (PORCINE) 1000 UNIT/ML IV ONE (23:12)
[2022-04-18] MEDS: POTASSIUM CHLORIDE / WTR 10 MEQ/100 ML PLCT IV SCH (23:17)
[2022-04-18 23:26] LABS: T4 Free Thyroxine 0.83 ng/dl (0.61-1.60)
[2022-04-18] MEDS: HEPARIN SODIUM/DEXTROSE 25,000 UNITS/500 ML BAG IV SCH (23:43)
[2022-04-19] MEDS ORDERED: NITROGLYCERIN SL 0.4 MG/TAB TAB SL PRN (00:51)
[2022-04-19] MEDS ORDERED: POLYETHYLENE (MIRALAX) 17 GM PACK PO PRN (00:51)
[2022-04-19] MEDS: POTASSIUM CHLORIDE / WTR 10 MEQ/100 ML PLCT IV SCH (00:58)
--- NOTE | 2022-04-19 01:12 | History and Physical Report ---
DATE OF ADMISSION: 04/18/2022. CHIEF COMPLAINT: New-onset atrial fibrillation and chest pain. HISTORY OF PRESENT ILLNESS: A 56-year-old female with past medical history significant for hyperlipidemia, high triglycerides, metabolic syndrome, allergic rhinitis, hypertension, hot flashes due to menopause, morbid obesity, GERD, primary osteoarthritis, tension headache, migraines, family history of ischemic heart disease, statin intolerance, anxiety, who presents with palpitations, chest discomfort, and lower extremity edema. The patient says lower extremity edema is going on for last 1 month. Recently spironolactone was added, which was causing mild headaches. On and off in the nighttime, she was feeling palpitations, but she attributed it to her menopause, but today she was feeling more palpitations and also some mild chest discomfort, which prompted her to come to the ER and found to be in rapid AFib. Currently resting comfortably, hemodynamically stable. Denies any blurred visions, no earache, no runny nose, no sore throat, no cough. Appetite is okay. Denies any shortness of breath. Currently, no nausea or abdominal pain. Normal bowel and bladder movements. Denies any blood in her stools. ALLERGIES: AMINOGLYCOSIDES, STATINS. PAST MEDICAL HISTORY: As mentioned above. PAST SURGICAL HISTORY: Abdominal subcutaneous tumor removal, bilateral knee arthroplasty, , colonoscopy and EGD with endoscopic ultrasound, laparoscopic cholecystectomy, sacroiliac joint injection. MEDICATIONS: Aspirin 81 mg p.o. daily, Tenormin 25 mg p.o. at bedtime, Zetia 10 mg p.o. daily, Lasix 20 mg p.o. a.m., potassium chloride 10 mEq p.o. daily, spironolactone 12.5 mg p.o. daily. FAMILY HISTORY: Significant for son has asthma; mother has breast cancer, heart disease; father has hypertension, diabetes; sister has hypertension; paternal aunt has ovarian cancer. SOCIAL HISTORY: , no smoking. Alcohol occasionally. No drug use. REVIEW OF SYSTEMS: As per HPI. Rest of the review of systems is negative. PHYSICAL EXAMINATION: GENERAL: The patient is morbidly obese, not in acute distress. VITAL SIGNS: Temperature 36.6, pulse 144, respiratory rate 18, blood pressure 157/117, oxygen 97% on room air. HEENT: Pupils equal, round and reactive to light. Oral mucosa moist. NECK: No neck masses. CARDIOVASCULAR: S1 and S2 heard, tachycardia, regular rhythm. No murmurs. RESPIRATORY SYSTEM: Normal AP diameter. No accessory muscle use. No wheezing, no crackles. ABDOMEN: Soft, bowel sounds present. Some mild lower abdominal discomfort. No guarding, no rigidity, no distention. CENTRAL NERVOUS SYSTEM: Cranial nerves II through XII grossly intact, nonfocal. EXTREMITIES: Bilateral pedal edema present, no erythema seen. LABORATORY DATA: WBC 14.1, hemoglobin 15.1, hematocrit 46, platelets 394. PT 10.6, INR 1, APTT 26.7. Sodium 139, potassium 3.1, chloride 98, bicarbonate 28, BUN 14, creatinine 0.7, serum glucose 195, calcium 9.7, magnesium 2.2, total bilirubin 0.5, AST 20, ALT 20, alkaline phosphatase 79. Troponin I high sensitivity 10.8. TSH 5.4, free T4 of 0.8. SARS-CoV-2 rapid test negative. IMAGING DATA: Chest x-ray, pulmonary congestion seen. EKG: Rapid AFib at the rate of 149, nonspecific ST abnormalities. ASSESSMENT AND PLAN: This is a 56-year-old female who presents with new-onset atrial fibrillation and chest pain. 1. New-onset atrial fibrillation: Family history of mother having atrial fibrillation. ER started on Cardizem drip and IV heparin. Will hold atenolol for now. Follow serial cardiac enzymes, monitor in tele, echo. Will keep her n.p.o. and consult cardiology in the a.m. for further recommendations. 2. Possible congestive heart failure with lower extremity edema and some pulmonary congestion. The patient is taking Lasix 20 mg, spironolactone 12.5 mg daily at home. Will continue spironolactone, hold home Lasix. Received IV Lasix 20 mg in the ER, will continue with IV Lasix 20 mg b.i.d. Follow echocardiogram. Consult cardiology in the a.m. 2. Morbid obesity: Needs counseling. Will need sleep study as outpatient. May need nocturnal pulse ox study while in the hospital. 3. Hyperlipidemia: Continue her home medication of ezetimibe. 4. Hypertension: Currently on Cardizem drip. Will monitor the blood pressure. 5. Deep venous thrombosis prophylaxis: On IV heparin. DISPOSITION: Closely monitor in the tele floor. Level 1 full code. Expect to discharge home and follow with family doctor. Job ID: [id number] [facility]
[2022-04-19 06:50] LABS: Partial Thromboplastin Ratio 1.2; Partial Thromboplastin Time 32.5 Seconds (21.0-31.0)
[2022-04-19] MEDS ORDERED: HEPARIN SOD (PORCINE) 1000 UNIT/ML ONE ×2 (07:04→14:30)
[2022-04-19 07:42] LABS: Basophils # (auto) 0.06 K/uL (0-0.2); Basophils % (auto) 0.7 %; Eosinophils # (auto) 0.06 K/uL (0-0.50); Eosinophils % (auto) 0.7 %; Hematocrit (blood only) 43.4 % (34.1-44.9); Hemoglobin 13.9 g/dl (12.0-16.0); Immature Granulocytes # (auto) 0.11 K/uL (0.00-0.02); Immature Granulocytes % (auto) 1.3 %; Lymphocytes # (auto) 2.64 K/uL (1.2-3.4); Lymphocytes % (auto) 30.6 %; Mean Corpuscular Hemoglobin 26.9 pg (25.0-34.0); Mean Corpuscular Volume 83.9 fL (80.0-100.0); Monocytes # (auto) 0.58 K/uL (0.24-0.82); Monocytes % (auto) 6.7 %; Neutrophils # (auto) 5.19 K/uL (1.4-6.5); Platelet Count 364 K/uL (130-400); RDW Coefficient of Variation 14.3 % (11.5-14.5); RDW Standard Deviation 43.2 fL (36.4-46.3); Red Blood Count 5.17 M/uL (3.93-5.22); White Blood Count 8.64 K/ul (4.8-10.8)
[2022-04-19] MEDS: dilTIAZem HCL 125 MG in DEXTROSE 5% 100 ML IV SCH ×2 (07:44→08:12)
[2022-04-19 08:08] LABS: BUN Creatinine Ratio 26.9 (10-20); Calcium 8.6 mg/dl (8.5-10.1); Creatinine Clr Calc Pharmacy 141.7 ml/min; Est GFR (African American) 122.9 ml/min; Est GFR (Non-African American) 106.1 ml/min; Magnesium 2.2 mg/dl (1.7-2.4); Potassium 3.4 mmol/L (3.5-5.1)
[2022-04-19 08:16] LABS: Troponin I High Sensitivity 16.8 pg/ml (0-14)
--- NOTE | 2022-04-19 08:17 | XRay Report ---
XR chest 1V portable CLINICAL HISTORY: new rapid afib COMPARISON STUDY: Chest radiograph January 06, 2021. FINDINGS: No pneumothorax or pleural effusion is noted. There is borderline cardiomegaly. Pulmonary v ascular congestion is noted. No evidence for overt pulmonary edema. No consolidation to suggest pneum onia. IMPRESSION: Pulmonary vascular congestion without overt pulmonary edema. ACT 112: Negative or not required by law. Electronically signed by: Sunny iDetz M.D. 04/19/2022 8:15 AM
[2022-04-19] MEDS: ASPIRIN 81 MG ECTAB PO SCH (08:34)
[2022-04-19] MEDS: FUROSEMIDE INJ 20 MG/2 ML VIAL IV SCH ×2 (08:35→21:31)
[2022-04-19] MEDS ORDERED: POTASSIUM CHLORIDE CRTAB 20 MEQ TABCR PO ONE (08:50)
[2022-04-19] MEDS ORDERED: SPIRONOLACTONE 12.5 MG TAB PO SCH (09:00)
[2022-04-19] MEDS ORDERED: POTASSIUM CHLORIDE 10 MEQ TABCR PO SCH (09:00)
[2022-04-19] MEDS ORDERED: FUROSEMIDE INJ 20 MG/2 ML VIAL IV SCH (09:00)
--- NOTE | 2022-04-19 09:23 | Cardiology Consultation ---
Date of Consultation April 19, 2022 Assessment & Plan (1) Atrial fibrillation with rapid ventricular response: (2) Hypokalemia: (3) Hypertensive heart disease with chronic diastolic congestive heart failure: Plan Patient is a 56-year-old female presented acutely with newly observed atrial fibrillation with rapid response, hypertension: Issues addressed as follows 1. New onset/paroxysmal atrial fibrillation with rapid response: Patient with spontaneous conversion this morning after supplementation of potassium, IV diltiazem. Plan: Continue IV heparin for anticoagulation with plans to transition to Eliquis 5 mg twice per day at discharge for minimum 30 days [id number] 2 score 2 possible 3 Discontinue diltiazem drip. Initiate beta-nidhi therapy with metoprolol succinate 25 mg 3 times daily Supplement potassium, increase spironolactone Will recommend sleep medicine evaluation post discharge 2. Hypertensive heart disease with diastolic heart failure: Plan as above in addition we will increase spironolactone to 25 mg/day. Continue IV furosemide through course of day, change to oral dosing in a.m. 3. Marked hyperlipidemia: Patient meeting with MTM tomorrow regarding possible PCSK9 inhibitor. Urinalysis to assess for degree of proteinuria. Patient should complete 24-hour urine collection for protein post discharge 4. Borderline hyperglycemia 5. Mild elevation in troponin: Likely secondary to rapid ventricular response rates with atrial fibrillation. EKG ordered now postconversion. We will continue to trend troponins given multiple risk factors. Medication treatment as above. Echocardiogram without wall motion or normality History of Present Illness Reason for Consultation: New onset/p atrial fibrillation Requesting Physician: Dr. Wall Attending Physician: Xochitl Wall MD History of Present Illness Patient is a 56-year-old female with ongoing issues which include 1. Longstanding hypertension with hypertensive heart disease, diastolic dysfunction 2. Morbid obesity 3. Hyperlipidemia, severe with poor statin tolerance Patient presents now noting acute onset of tachypalpitations and chest pressure last evening. Follows blood pressures at home and notes first elevation heart rate observed last evening. Has been struggling with elevated blood pressures as well as persistent lower extremity edema for several weeks. No fevers chills or unexplained infections. No syncope or near syncope. No prior history of arrhythmias. Patient presented to the ER last night after symptoms and was found to be in atrial fibrillation with elevated ventricular response. Blood pressure markedly elevated, laboratory studies notable for hypokalemia Patient begun on IV diltiazem. Spontaneously converted to sinus rhythm after potassium replacement this morning Currently without acute complaints though frustrated regarding chronic edema and hypertension Has anticipated plans for meeting with MTM regarding possible PCSK9 inhibitor Recent issues notable for persistent lower extremity edema, hypertension not responsive to increasing diuretic dosing Allergies Allergy/AdvReac Type Severity Reaction Status Date / Time Zofrrjg-UQN-TjF Reductase AdvReac Mild Cramping Verified 04/19/22 00:23 Inhibitor of the [Dfjifzh-Kte-Put Reductase Muscles Inhibitor] Home Medications Medication Instructions Recorded Confirmed Type aspirin 81 mg tablet,delayed 81 mg PO QAM 12/18/19 04/19/22 History release (Marina Low Dose Aspirin) atenolol 25 mg tablet (Tenormin) 25 mg PO HS 12/18/19 04/19/22 History furosemide 20 mg tablet (Lasix) 20 mg PO QAM 12/18/19 04/19/22 History spironolactone 25 mg tablet 12.5 mg PO QAM 04/19/22 04/19/22 History Patient History Medical History (Updated 04/19/22 @ 09:58 by Estevan Lancaster MD) Acute pancreatitis Cholelithiasis Gallstone pancreatitis GERD (gastroesophageal reflux disease) Hiatal hernia Morbid obesity Osteoarthritis Surgical History History of total bilateral knee replacement (TKR) Hx of section Family History Mother Heart disease Father Heart disease Social History Smoking Status: Never smoker Second Hand Exposure: No; Do You Dip or Chew Tobacco: No; Hx Alcohol Use: Yes Alcohol type: beer, wine and hard liquor Alcohol Intake Frequency: 2-4 x/Month Hx Substance Use: No Preferred Language: [place] Communication Ability: Effective Therapist Radiation Required: No Beliefs That Will Affect Care: None Current Living Situation: Spouse Feels Safe at Home: Yes Safety Concerns: Feels Safe At This Time Assistive Devices: None Review of Systems Review of Systems: All systems reviewed & are unremarkable except as noted in HPI & below Results & Data ([facility]) Vital Signs (Past 12 Hours) Vital Signs Temp Pulse Pulse Resp BP BP Pulse Ox 04/19/22 00:51 04/19/22 07:57 04/19/22 06:30 117 H 22 95 04/19/22 06:00 143 H 21 117/76 98 04/19/22 05:30 129 H 21 96 04/19/22 05:30 114/81 04/19/22 05:01 115 H 137/84 98 04/19/22 04:30 108 H 17 119/95 98 04/19/22 04:00 111 H 18 151/97 H 98 04/19/22 03:30 128 H 15 133/101 H 98 04/19/22 03:00 108 H 17 127/88 97 04/19/22 02:30 104 H 17 93 04/19/22 02:30 152/92 H 04/19/22 02:10 130 H 23 95 04/19/22 02:10 148/93 H 04/19/22 02:05 121 H 20 148/93 H 04/19/22 01:30 136 H 19 96 04/19/22 01:00 148 H 20 96 04/19/22 00:30 146 H 18 04/19/22 00:01 149 H 22 167/115 H 04/19/22 00:00 146 H 22 04/18/22 23:31 139 H 23 04/18/22 23:31 190/115 H 04/18/22 23:30 150 H 21 149/109 H 04/18/22 23:19 140 H 24 95 04/18/22 23:00 149 H 20 96 04/18/22 22:30 137 H 22 94 04/18/22 22:05 136 H 21 157/117 H 96 04/18/22 22:28 04/18/22 22:05 97 04/18/22 22:05 144 H 157/117 H 97 04/18/22 21:38 36.6 C 140 H 18 216/130 H 95 Pulse Ox O2 Del Method O2 Del Method O2 Flow Rate 04/19/22 00:51 94 Room Air 04/19/22 07:57 Room Air 04/19/22 06:30 04/19/22 06:00 04/19/22 05:30 04/19/22 05:30 04/19/22 05:01 Nasal Cannula 2 04/19/22 04:30 04/19/22 04:00 04/19/22 03:30 04/19/22 03:00 04/19/22 02:30 04/19/22 02:30 04/19/22 02:10 04/19/22 02:10 04/19/22 02:05 04/19/22 01:30 04/19/22 01:00 04/19/22 00:30 04/19/22 00:01 04/19/22 00:00 04/18/22 23:31 04/18/22 23:31 04/18/22 23:30 04/18/22 23:19 04/18/22 23:00 04/18/22 22:30 04/18/22 22:05 04/18/22 22:28 Room Air 04/18/22 22:05 Room Air 04/18/22 22:05 Room Air 04/18/22 21:38 Room Air Laboratory Results Laboratory Results - last 24 hr 04/18/22 04/18/22 04/18/22 21:53 21:53 21:53 WBC 14.11 H RBC 5.55 H Hgb 15.1 Hct 46.0 H MCV 82.9 MCH 27.2 MCHC 32.8 RDW Std Deviation 43.0 RDW Coeff of Ce 14.4 Plt Count 394 MPV 9.1 L Immature Gran % (Auto) 0.8 Neut % (Auto) 58.0 Lymph % (Auto) 33.9 [place] % (Auto) 5.5 Eos % (Auto) 1.2 Baso % (Auto) 0.6 Neut # (Auto) 8.18 H Lymph # (Auto) 4.79 H [place] # (Auto) 0.78 Eos # (Auto) 0.17 Baso # (Auto) 0.08 Immature Gran # (Auto) 0.11 H PT 10.6 INR 1.0 APTT 26.7 PTT Ratio 1.0 Sodium 139 Potassium 3.1 L Chloride 98 Carbon Dioxide 28 Anion Gap 13 H BUN 14 Creatinine 0.73 Est Cr Clr Drug Dosing 100.9 Est GFR ( Amer) 106.0 Est GFR (Non-Af Amer) 91.4 BUN/Creatinine Ratio 19.2 Glucose 195 H Calcium 9.7 Magnesium 2.2 Total Bilirubin 0.5 AST 20 ALT 20 Alkaline Phosphatase 79 Troponin I High Sens 10.8 Total Protein 7.9 Albumin 4.5 Globulin 3.4 Albumin/Globulin Ratio 1.3 TSH Free T4 SARS-CoV-2, RNA, NAAT 04/18/22 04/18/22 04/19/22 21:53 22:10 06:20 WBC RBC Hgb Hct MCV MCH MCHC RDW Std Deviation RDW Coeff of Ce Plt Count MPV Immature Gran % (Auto) Neut % (Auto) Lymph % (Auto) [place] % (Auto) Eos % (Auto) Baso % (Auto) Neut # (Auto) Lymph # (Auto) [place] # (Auto) Eos # (Auto) Baso # (Auto) Immature Gran # (Auto) PT INR APTT 32.5 H PTT Ratio 1.2 Sodium Potassium Chloride Carbon Dioxide Anion Gap BUN Creatinine Est Cr Clr Drug Dosing Est GFR ( Amer) Est GFR (Non-Af Amer) BUN/Creatinine Ratio Glucose Calcium Magnesium Total Bilirubin AST ALT Alkaline Phosphatase Troponin I High Sens Total Protein Albumin Globulin Albumin/Globulin Ratio TSH 5.428 H Free T4 0.83 SARS-CoV-2, RNA, NAAT NEGATIVE 04/19/22 04/19/22 07:23 07:23 WBC 8.64 RBC 5.17 Hgb 13.9 Hct 43.4 MCV 83.9 MCH 26.9 MCHC 32.0 RDW Std Deviation 43.2 RDW Coeff of Ce 14.3 Plt Count 364 MPV 9.0 L Immature Gran % (Auto) 1.3 Neut % (Auto) 60.0 Lymph % (Auto) 30.6 [place] % (Auto) 6.7 Eos % (Auto) 0.7 Baso % (Auto) 0.7 Neut # (Auto) 5.19 Lymph # (Auto) 2.64 [place] # (Auto) 0.58 Eos # (Auto) 0.06 Baso # (Auto) 0.06 Immature Gran # (Auto) 0.11 H PT INR APTT PTT Ratio Sodium 140 Potassium 3.4 L Chloride 101 Carbon Dioxide 28 Anion Gap 11 BUN 14 Creatinine 0.52 L Est Cr Clr Drug Dosing 141.7 Est GFR ( Amer) 122.9 Est GFR (Non-Af Amer) 106.1 BUN/Creatinine Ratio 26.9 H Glucose 145 H Calcium 8.6 Magnesium 2.2 Total Bilirubin AST ALT Alkaline Phosphatase Troponin I High Sens 16.8 H D Total Protein Albumin Globulin Albumin/Globulin Ratio TSH Free T4 SARS-CoV-2, RNA, NAAT Diagnostic Findings Echocardiogram 04/19/2022 Moderately hypertrophied hyperdynamic ventricle without wall motion or normality and no gross valvular abnormalities
[2022-04-19] MEDS: ACETAMINOPHEN 325 MG TAB PO PRN ×2 (09:25→23:15)
[2022-04-19] MEDS ORDERED: SPIRONOLACTONE 12.5 MG TAB PO ONE (10:15)
[2022-04-19 14:02] LABS: Partial Thromboplastin Time 28.6 Seconds (21.0-31.0)
[2022-04-19] MEDS: METOPROLOL SUCC 25MG EXT REL TAB PO SCH ×2 (14:37→21:30)
[2022-04-19] MEDS ORDERED: EZETIMIBE 10 MG TABLET PO SCH (16:30)
--- NOTE | 2022-04-19 16:32 | Communication Note ---
Date of Service: April 19, 2022 Patient was admitted today for new A fib with RVR, spontaneously converted to sinus rhythm this morning. Also with new CHF, Echo shows preserved EF. Chart reviewed. Patient seen and examined in ER. Cardiology recommendations noted Full note to follow tomorrow
[2022-04-19] MEDS: HEPARIN SODIUM/DEXTROSE 25,000 UNITS/500 ML BAG IV SCH ×2 (17:27→22:07)
[2022-04-19 20:55] LABS: Partial Thromboplastin Ratio 1.4
[2022-04-19] MEDS ORDERED: POTASSIUM CHLORIDE 20 MEQ/15 ML UDC PO STA (21:49)
[2022-04-20 04:25] LABS: Hematocrit (blood only) 41.5 % (34.1-44.9); Hemoglobin 13.1 g/dl (12.0-16.0); Mean Corpuscular Hemoglobin 26.8 pg (25.0-34.0); Mean Corpuscular Hgb Conc 31.6 g/dL (32.0-36.0); Mean Corpuscular Volume 84.9 fL (80.0-100.0); Mean Platelet Volume 9.2 fL (9.4-12.3); Platelet Count 331 K/uL (130-400); RDW Coefficient of Variation 14.5 % (11.5-14.5); RDW Standard Deviation 44.4 fL (36.4-46.3); Red Blood Count 4.89 M/uL (3.93-5.22); White Blood Count 9.44 K/ul (4.8-10.8)
[2022-04-20 04:59] LABS: BUN Creatinine Ratio 30.9 (10-20); Calcium 8.8 mg/dl (8.5-10.1); Est GFR (African American) 120.7 ml/min; Est GFR (Non-African American) 104.1 ml/min; Magnesium 2.2 mg/dl (1.7-2.4); Potassium 3.6 mmol/L (3.5-5.1)
--- NOTE | 2022-04-20 05:01 | Electrocardiogram Report ---
Test Reason : Blood Pressure : / mmHG Vent. Rate : 149 BPM Atrial Rate : 144 BPM P-R Int : 000 ms QRS Dur : 064 ms QT Int : 296 ms P-R-T Axes : 000 028 -03 degrees QTc Int : 466 ms Atrial fibrillation with rapid ventricular response Nonspecific ST abnormality Abnormal ECG When compared with ECG of 06-JAN-2021 06:56, Atrial fibrillation has replaced Sinus rhythm Vent. rate has increased BY [address] abnormality is now Present Confirmed by J Luis Connelly ([id number]) on 04/20/2022 5:01:35 AM Referred By: REFERRED SELF Confirmed By:J Luis Connelly
[2022-04-20 05:04] LABS: Partial Thromboplastin Ratio 1.7
[2022-04-20 05:27] LABS: Partial Thromboplastin Time 45.7 Seconds (21.0-31.0)
[2022-04-20] MEDS: HEPARIN SODIUM/DEXTROSE 25,000 UNITS/500 ML BAG IV SCH (07:27)
[2022-04-20] MEDS ORDERED: POTASSIUM CHLORIDE CRTAB 20 MEQ TABCR PO SCH (09:00)
[2022-04-20] MEDS ORDERED: SPIRONOLACTONE 25 MG TAB PO SCH (09:00)
[2022-04-20] MEDS ORDERED: FUROSEMIDE 40 MG TAB PO SCH (09:15)
--- NOTE | 2022-04-20 09:28 | Cardiology Progress Note ---
Date of Service April 20, 2022 Assessment & Plan (1) Atrial fibrillation with rapid ventricular response: (2) Hypokalemia: (3) Hypertensive heart disease with chronic diastolic congestive heart failure: Plan Patient is a 56-year-old female presented acutely with newly observed atrial fibrillation with rapid response, hypertension: Issues addressed as follows 1. New onset/paroxysmal atrial fibrillation with rapid response: Patient with spontaneous conversion this morning after supplementation of potassium, IV diltiazem. Plan: Continue IV heparin for anticoagulation with plans to transition to Eliquis 5 mg twice per day at discharge for minimum 30 days [id number] 2 score 2 possible 3 Discontinue diltiazem drip. Initiate beta-nidhi therapy with metoprolol succinate 25 mg 3 times daily Supplement potassium, increase spironolactone Will recommend sleep medicine evaluation post discharge 2. Hypertensive heart disease with diastolic heart failure: Plan as above in addition we will increase spironolactone to 25 mg/day. Continue IV furosemide through course of day, change to oral dosing in a.m. 3. Marked hyperlipidemia: Patient meeting with MTM tomorrow regarding possible PCSK9 inhibitor. Urinalysis to assess for degree of proteinuria. Patient should complete 24-hour urine collection for protein post discharge 4. Borderline hyperglycemia 5. Mild elevation in troponin: Likely secondary to rapid ventricular response rates with atrial fibrillation. EKG ordered now postconversion. We will continue to trend troponins given multiple risk factors. Medication treatment as above. Echocardiogram without wall motion or normality 04/20/2022 No further atrial arrhythmias hemodynamically stable. Stable for discharge Recommendations: Change IV heparin to oral Eliquis 5 mg twice per day. Duration to be reviewed with outpatient cardiology with patient reluctant to maintain chronic anticoagulation Metoprolol succinate 50 mg p.o. twice daily Furosemide 40 mg p.o. daily Spironolactone 25 mg p.o. daily Potassium chloride 10 mg p.o. daily Patient has appoint with cardiology pharmacist regarding PCSK9 inhibitor at 2:50 PM today BMP 1 week Cardiology follow-up 2 to 3 weeks Outpatient issues to be addressed including sleep medicine evaluation, hyperglycemia Admission and Anticipated Discharge Date Admission Date: April 19, 2022 Subjective Patient was seen and examined, chart, medications, telemetry reviewed. No further atrial fibrillation. Blood pressure controlled. Trivial pedal edema No bleeding difficulty on anticoagulation Review of Systems Review of Systems: All systems reviewed & are unremarkable except as noted in Subjective Physical Exam Constitutional: + morbidly obese; no acute distress Eyes: PERRL, conjunctivae normal, anicteric sclerae ENMT: external ear and nose normal, oropharynx normal Neck: trachea midline, no thyromegaly Respiratory: normal respiratory effort, lungs clear to auscultation Cardiovascular: RRR, no murmur, no edema Chest (Breasts): Additional Comments: Very large breast Gastrointestinal (Abdomen): normal bowel sounds, soft, nontender, no hepatosplenomegaly Musculoskeletal: no cyanosis or clubbing, extremities motor strength 5/5 Skin: no rashes, warm and dry Results & Data ([facility]) Vital Signs (Past 12 Hours) Vital Signs Temp Pulse Pulse Resp BP BP Pulse Ox 04/20/22 07:32 37.2 C 87 18 124/81 93 04/20/22 03:48 36.5 C 74 18 143/84 H 99 04/20/22 02:07 04/19/22 23:50 81 04/19/22 23:41 36.5 C 87 16 149/80 H 96 04/19/22 23:01 101 H 20 95 04/19/22 23:01 134/80 04/19/22 23:00 84 15 04/19/22 22:30 84 18 94 04/19/22 22:01 161/92 H 04/19/22 22:01 24 04/19/22 22:00 87 19 04/19/22 21:30 85 19 04/19/22 23:07 84 20 96 O2 Del Method O2 Flow Rate 04/20/22 07:32 Room Air 04/20/22 03:48 Nasal Cannula 3 04/20/22 02:07 Nasal Cannula 3 04/19/22 23:50 04/19/22 23:41 Room Air 04/19/22 23:01 04/19/22 23:01 04/19/22 23:00 04/19/22 22:30 04/19/22 22:01 04/19/22 22:01 04/19/22 22:00 04/19/22 21:30 04/19/22 23:07 Laboratory Results Laboratory Results - last 24 hr 04/19/22 04/19/22 04/19/22 10:33 13:31 16:54 WBC RBC Hgb Hct MCV MCH MCHC RDW Std Deviation RDW Coeff of Ce Plt Count MPV APTT 28.6 PTT Ratio 1.0 Sodium Potassium Chloride Carbon Dioxide Anion Gap BUN Creatinine Est Cr Clr Drug Dosing Est GFR ( Amer) Est GFR (Non-Af Amer) BUN/Creatinine Ratio Glucose Calcium Magnesium Troponin I High Sens 12.6 D 11.1 04/19/22 04/20/22 04/20/22 20:33 03:52 03:52 WBC 9.44 RBC 4.89 Hgb 13.1 Hct 41.5 MCV 84.9 MCH 26.8 MCHC 31.6 L RDW Std Deviation 44.4 RDW Coeff of Ce 14.5 Plt Count 331 MPV 9.2 L APTT 39.0 H 45.7 H* PTT Ratio 1.4 1.7 Sodium Potassium Chloride Carbon Dioxide Anion Gap BUN Creatinine Est Cr Clr Drug Dosing Est GFR ( Amer) Est GFR (Non-Af Amer) BUN/Creatinine Ratio Glucose Calcium Magnesium Troponin I High Sens 04/20/22 03:52 WBC RBC Hgb Hct MCV MCH MCHC RDW Std Deviation RDW Coeff of Ce Plt Count MPV APTT PTT Ratio Sodium 139 Potassium 3.6 Chloride 101 Carbon Dioxide 29 Anion Gap 9 BUN 17 Creatinine 0.55 L Est Cr Clr Drug Dosing 134.0 Est GFR ( Amer) 120.7 Est GFR (Non-Af Amer) 104.1 BUN/Creatinine Ratio 30.9 H Glucose 123 H Calcium 8.8 Magnesium 2.2 Troponin I High Sens
[2022-04-20] MEDS ORDERED: APIXABAN 5 MG TABLET PO SCH (09:30)
[2022-04-20] MEDS ORDERED: METOPROLOL SUCC 25MG EXT REL TAB PO ONE (09:32)
[2022-04-20] MEDS: METOPROLOL SUCC 25MG EXT REL TAB PO SCH (09:50)
[2022-04-20] MEDS: ASPIRIN 81 MG ECTAB PO SCH (10:43)
--- NOTE | 2022-04-20 10:44 | Discharge Summary ---
Date of Service April 20, 2022 Admission HPI Per Admitting Provider A 56-year-old female with past medical history significant for hyperlipidemia, high triglycerides, metabolic syndrome, allergic rhinitis, hypertension, hot flashes due to menopause, morbid obesity, GERD, primary osteoarthritis, tension headache, migraines, family history of ischemic heart disease, statin intolerance, anxiety, who presents with palpitations, chest discomfort, and lower extremity edema. The patient says lower extremity edema is going on for last 1 month. Recently spironolactone was added, which was causing mild headaches. On and off in the nighttime, she was feeling palpitations, but she attributed it to her menopause, but today she was feeling more palpitations and also some mild chest discomfort, which prompted her to come to the ER and found to be in rapid AFib. Currently resting comfortably, hemodynamically stable. Denies any blurred visions, no earache, no runny nose, no sore throat, no cough. Appetite is okay. Denies any shortness of breath. Currently, no nausea or abdominal pain. Normal bowel and bladder movements. Denies any blood in her stools. Principal Diagnosis New onset A fib with RVR Acute diastolic CHF Morbid Obesity Hyperlipidemia HTN Discharge Exam Appears well, no acute distress, pleasant and comfortable Respiratory Breathing comfortably on room air, no wheezing/rhonchi/rales Cardiovascular Regular rate and rhythm, no murmurs/rubs/gallops Gastrointestinal (Abdomen) Soft, non tender, non distended Musculoskeletal No edema Neurologic Awake, alert, spontaneously moving extremities Discharge Data Allergies Allergy/AdvReac Type Severity Reaction Status Date / Time Oxwchuo-LTD-ExC Reductase AdvReac Mild Cramping Verified 04/19/22 00:23 Inhibitor of the [Mlcyttz-Ykr-Ysv Reductase Muscles Inhibitor] Consultations 04/18/22 23:07 ED Decision to Admit Stat 04/19/22 08:00 Consult Cardiology Routine Hospital Course (1) Morbid obesity: (2) Hypertensive heart disease with chronic diastolic congestive heart failure: (3) Atrial fibrillation with rapid ventricular response: (4) Hypokalemia: (5) Fluid overload: Plan Ms Sheela Martinez is a 56 year old female with history of morbid obesity (BMI 48), hypertension, hyperlipidemia presents to ER 1/ with chest discomfort and leg swelling. She was found to have new onset A fib with RVR and was started on a heparin drip and diltiazem drip. She later spontaneously converted to sinus rhythm. And her diltiazem and heparin drip were discontinued. She was started on metoprolol and eliquis prior to discharge. She was also found to have acute diastolic CHF and was started on parenteral diuresis. She was transitioned to oral lasix prior to discharge. She was seen by Cardiology while here. She will follow up at the [facility] clinic for management of her medical comorbities and to determine if she qualifies for PCSK9 inhibitor for her hyperlipidemia due to her statin intolerance. She will need to follow up with her PCP for outpatient sleep study. Total Time Total Time Spent Total Time Spent (In Minutes): 40 Discharge Plan Discharge Items Patient Disposition: Home - Self-Care Reason For Visit: CHEST PAIN, A FIB Discharge Diagnosis: New onset A fib with RVR Acute diastolic CHF Hyperlipidemia HTN Morbid Obesity Activity: Resume your previous activity Non-emergency contact: Primary Care Provider and Stave Planer Tender Call non-emergency contact if: you have any medication questions Follow-up/Referrals: Estevan Lancaster MD [Physician] - Clinton Avilez MD [Primary Care Provider] - Diet: Heart Healthy Fluids: 1800ml (7 cups) Addtl Attending Provider Instructions: Please follow up with your PCP to arrange for a sleep study Please follow up with Cardiology for your new A fib and congestive heart failure Repeat BMP with Magnesium in 1 week to monitor electrolytes Pending Studies at Discharge: No Stand-Alone Forms: [facility] [employer], Smoking Cessation Medications and DC Order Prescriptions: New furosemide 40 mg Tablet 40 mg PO QAM 30 Days Qty: 30 0RF metoprolol succinate 50 mg Tablet Extended Release 24 Hr 50 mg PO BID 30 Days Qty: 60 1RF spironolactone 25 mg Tablet 25 mg PO DAILY 30 Days Qty: 30 1RF potassium chloride 10 mEq Tablet,Er Particles/Crystals 10 meq PO DAILY 7 Days Qty: 7 0RF Eliquis 5 mg Tablet 5 mg PO BID 30 Days Qty: 60 1RF Continued aspirin [Marina Low Dose Aspirin] 81 mg Tablet,Delayed Release (Dr/Ec) 81 mg PO QAM Discontinued atenolol [Tenormin] 25 mg Tablet 25 mg PO HS furosemide [Lasix] 20 mg Tablet 20 mg PO QAM Rx Instructions: additional tablet daily as needed for fluid retention spironolactone 25 mg tablet 12.5 mg PO QAM Discharge Orders: Discharge Order (Routine); Ordered 04/20/22 Ordered By: Xochitl Wall Admission Data Admit Date/Time: 04/19/22 00:07 Attending Provider: Xochitl Wall Admit Provider: Michael Buchanan Primary Care Provider: Clinton Avilez Other Providers: Michael Buchanan ; Oskar Christensen ; Aidan Brewer ; Estevan Lancaster ; Kyle Tineo ; Cesar Dove ; Link Jauregui ; Nickie Rene ; Ashlyn Coon ; Kat Barone ; Lloyd Riddle
[2022-04-20 12:49] LABS: Partial Thromboplastin Time 27.1 Seconds (21.0-31.0)
--- NOTE | 2022-04-20 15:56 | Electrocardiogram Report ---
Test Reason : Blood Pressure : / mmHG Vent. Rate : 086 BPM Atrial Rate : 086 BPM P-R Int : 162 ms QRS Dur : 068 ms QT Int : 398 ms P-R-T Axes : 058 021 031 degrees QTc Int : 476 ms Suspect V2-V3 lead reversal Normal sinus rhythm Cannot rule out Anterior infarct , age undetermined Abnormal ECG When compared with ECG of 18-APR-2022 21:44, Sinus rhythm has replaced Atrial fibrillation Vent. rate has decreased BY 63 BPM Non-specific change in ST segment in Inferior leads ST no longer depressed in Anterolateral leads Confirmed by Jose Hines ([id number]) on 04/20/2022 3:56:21 PM Referred By: REFERRED SELF Confirmed By:Jose Hines
[2022-04-20] MEDS ORDERED: METOPROLOL SUCC 50MG EXT REL TAB PO SCH (21:00)
[2022-04-21] MEDS ORDERED: POTASSIUM CHLORIDE 10 MEQ TABCR PO SCH (09:00)
== END 2022-04-20 01:40 | disposition home or self-care (01) | DRG 308 ==
LOC: ED 21:33 → EDINP 04-19 00:07 → 2S 04-19 23:07

== ENCOUNTER 2022-06-12 22:45 | Observation (INO) ==
--- NOTE | 2022-06-12 23:14 | Emergency Department Note ---
Impression & Plan Chest pain, Palpitations, Hypertension ED Provider Note ED Provider Note NAME: VAN HARDWICK AGE:56 SEX: Female : 1965 ARRIVES VIA: Private vehicle INFORMANT: Patient ED PROVIDER(s): Katy Peters DO CHIEF COMPLAINT: Chest pain and palpitations HPI: This is a 56-year-old female presents emerged department due to concern for chest pain and palpitations which began this evening around 8 PM. She states she was not engaged in any strenuous activity at this time. She states symptoms persisted for quite some time and did not seem to be improving so they decided to come the emergency room. Patient with recent new diagnosis of paroxysmal atrial fibrillation and does take metoprolol daily as well as Eliquis twice daily. She states none of her usual medications have changed and she has not missed or skipped any doses. No recent illness, fevers or chills, change in urine or stools. She states she has had mildly increased lower extremity swelling compared to her baseline although she does use furosemide daily. Patient states she was told there was an abnormality to an outpatient nuclear stress test that she had performed this past week and she is scheduled for cardiac catheterization on July 05. She states her nursing clinical director is Dr. Brewer. PAST MEDICAL HISTORY:See Below PAST SURGICAL HISTORY:See Below FAMILY HISTORY:See Below SOCIAL HISTORY:See Below HOME MEDICATIONS:See Below ALLERGIES:See Below VITALS:See Below PHYSICAL EXAMINATION: GENERAL: alert, well appearing, well nourished, no distress, non-toxic, BMI>46 EYE EXAM: normal conjunctiva, PERRL and EOM's grossly intact OROPHARYNX: no exudate, no erythema, lips, buccal mucosa, and tongue normal and mucous membranes are moist NECK: supple, no nuchal rigidity, no adenopathy, non-tender LUNGS: Clear to auscultation. Normal chest wall mechanics, no w/r/r HEART: no murmurs, S1 normal and S2 normal ABDOMEN: abdomen soft, non-tender, normo-active bowel sounds, no masses, no rebound or guarding. BACK: Back is symmetrical on inspection and there is no deformity, no midline tenderness, no CVA tenderness. SKIN: no rashes, petechiae, orbruising UPPER EXTREMITIES: upper extremities are grossly normal. FROM, nml pulses b/l. LOWER EXTREMITIES: No pitting edema. FROM, nml pulses b/l. NEURO EXAM: Normal sensorium, cranial nerves II-XII grossly intact, normal speech, no facial droop,nogross weakness of arms, no gross weakness of legs. Gross sensation intact. No ataxia. Vital Signs: reviewed and remarkable Differential Diagnosis: Differential diagnoses includes but is not limited to dysrhythmia, acute coronary syndrome, electrolyte abnormality, pericarditis, pulmonary embolus, aortic dissection, pneumonia, pneumothorax, musculoskeletal pain, thyroid storm, GERD, as well as others were considered MEDICAL DECISION MAKING: This is a 56-year-old female presents emergency department due to chest pain and palpitations. Patient found to be normal sinus rhythm/sinus tachycardia, no recurrent episodes of A-fib which she has had previously. Labs drawn and sent, IV established, EKG performed and interpreted by me, chest x-ray obtained at bedside and interpreted by me, patient monitored on telemetry throughout. Patient's labs and EKG reassuring. Patient did have 2 brief episodes of chest pain while in the emergency room however these quickly resolved prior to any intervention. Patient monitored and repeat troponin drawn and sent, this was also negative. Given recent outpatient findings and episode tonight despite reassuring labs, case discussed with on-call cardiology. Cardiology recommended patient be admitted for earlier cardiac catheterization. Patient updated on all results as well as conversation with cardiology and was in agreement with the plan. Consultation(s): 0415: Discussed with Dr. Dove. He recommends admission for earlier cardiac catheterization. ER Treatment Provided: See below Diagnostics Interpreted By Me: -ECG: Normal sinus at 99, normal axis, normal QRS and QTc, no acute ST/T wave changes -Cardiac Monitoring: An order was placed for continuous cardiac monitoring. The monitor shows a rate of 92 with normal sinus rhythm. -Laboratory studies: As stated above and show below. -Imaging studies: X-ray: Chest: A single view study of the chest was reviewed and was negative for cardiomegaly, focal infiltrate, effusion, pulmonary edema, or wide mediastinum. Triage Nursing Note Reviewed Prior/Outside Records Reviewed -outpatient cardiology office visit and outpatient nuclear stress test result Procedures: [] Critical Care: [] Past Med/Surg History Medical History Acute pancreatitis Cholelithiasis DVT prophylaxis Fluid overload Gallstone pancreatitis Gallstone pancreatitis GERD (gastroesophageal reflux disease) Hiatal hernia Hyperlipidemia Hypertension Hypokalemia Morbid obesity Osteoarthritis Surgical History History of total bilateral knee replacement (TKR) Hx of section Family History Mother Heart disease Father Heart disease Social History Smoking Status: Never smoker Second Hand Exposure: No; Hx Alcohol Use: Yes Alcohol type: beer, wine and hard liquor Alcohol Intake Frequency: 2-4 x/Month Hx Substance Use: No Preferred Language: Divehi Communication Ability: Effective Assistant Brand Manager Required: No Beliefs That Will Affect Care: None Current Living Situation: Spouse Feels Safe at Home: Yes Assistive Devices: None Allergies Allergies Allergy/AdvReac Type Severity Reaction Status Date / Time [id number] Reductase AdvReac Intermediate Cramping Verified 06/12/22 23:46 Inhibitor of the [Dlajojg-Euj-Dax Reductase Muscles Inhibitor] Home Meds Home Medications Medication Instructions Recorded Confirmed aspirin 81 mg tablet,delayed 81 mg PO QAM 12/18/19 06/12/22 release (Marina Low Dose Aspirin) Previous Rx's Medication Instructions Recorded apixaban 5 mg tablet (Eliquis) 5 mg PO BID 30 days #60 tabs 04/20/22 metoprolol succinate 50 mg 50 mg PO BID 30 days #60 tabs 04/20/22 tablet,extended release 24 hr spironolactone 25 mg tablet 25 mg PO DAILY 30 days #30 tabs 04/20/22 Results & Data (ED) Vital Signs Vital Signs - 24 hr 06/12/22 22:48 06/12/22 23:40 06/12/22 23:39 Temperature 36.4 C L Temperature Source Temporal Artery Scan Pulse Rate 98 H 92 H 92 H Pulse Rate from SpO2 Sensor 93 H Respiratory Rate 18 20 Respiratory Effort / Characteristics Non-Labored Spontaneous Respiratory Depth Normal Respiratory Pattern Blood Pressure 179/94 H 127/67 Blood Pressure [Left Arm] Blood Pressure Mean 122 87 Blood Pressure Mean [Left Arm] Blood Pressure Position [Left Arm] Pulse Oximetry 96 94 Oxygen Delivery Method Room Air Sepsis Recent Fever Within 48 Hours No Sepsis New/Unexplained Change in Mental Status No Sepsis Action Taken by Nursing No Action Required 06/13/22 00:00 06/13/22 01:00 06/13/22 01:00 Temperature Temperature Source Pulse Rate 85 100 H Pulse Rate from SpO2 Sensor 102 H Respiratory Rate 17 12 Respiratory Effort / Characteristics Respiratory Depth Respiratory Pattern Blood Pressure 126/81 139/85 Blood Pressure [Left Arm] Blood Pressure Mean 96 103 Blood Pressure Mean [Left Arm] Blood Pressure Position [Left Arm] Pulse Oximetry 94 98 Oxygen Delivery Method Sepsis Recent Fever Within 48 Hours Sepsis New/Unexplained Change in Mental Status Sepsis Action Taken by Nursing 06/13/22 01:30 06/13/22 02:00 06/13/22 02:00 Temperature Temperature Source Pulse Rate 91 H 82 Pulse Rate from SpO2 Sensor 91 H 82 Respiratory Rate 18 18 Respiratory Effort / Characteristics Respiratory Depth Respiratory Pattern Blood Pressure 134/88 Blood Pressure [Left Arm] Blood Pressure Mean 103 Blood Pressure Mean [Left Arm] Blood Pressure Position [Left Arm] Pulse Oximetry 94 94 Oxygen Delivery Method Sepsis Recent Fever Within 48 Hours Sepsis New/Unexplained Change in Mental Status Sepsis Action Taken by Nursing 06/13/22 02:30 06/13/22 03:00 06/13/22 03:00 Temperature Temperature Source Pulse Rate 78 82 Pulse Rate from SpO2 Sensor 80 82 Respiratory Rate 21 18 Respiratory Effort / Characteristics Respiratory Depth Respiratory Pattern Blood Pressure 108/75 Blood Pressure [Left Arm] Blood Pressure Mean 86 Blood Pressure Mean [Left Arm] Blood Pressure Position [Left Arm] Pulse Oximetry 94 94 Oxygen Delivery Method Sepsis Recent Fever Within 48 Hours Sepsis New/Unexplained Change in Mental Status Sepsis Action Taken by Nursing 06/13/22 03:00 06/13/22 04:00 Temperature Temperature Source Pulse Rate 82 Pulse Rate from SpO2 Sensor Respiratory Rate 18 Respiratory Effort / Characteristics Non-Labored Respiratory Depth Normal Respiratory Pattern Regular Blood Pressure Blood Pressure [Left Arm] 108/74 Blood Pressure Mean Blood Pressure Mean [Left Arm] 85 Blood Pressure Position [Left Arm] Sitting Pulse Oximetry 98 Oxygen Delivery Method Sepsis Recent Fever Within 48 Hours Sepsis New/Unexplained Change in Mental Status Sepsis Action Taken by Nursing Laboratory Data 06/12/22 23:22 06/12/22 23:22 Lab Results 06/12/22 06/12/22 06/12/22 Range/Units 23:22 23:22 23:22 WBC 9.80 (4.8-10.8) K/ul RBC 5.16 (4.20-5.40) M/uL Hgb 13.8 (12.0-16.0) g/dl Hct 43.0 (37.0-47.0) % MCV 83.3 (80.0-100.0) fL MCH 26.7 (25.0-34.0) pg MCHC 32.1 (32.0-36.0) g/dL RDW Std Deviation 45.4 (36.4-46.3) fL RDW Coeff of Ce 14.9 H (11.5-14.5) % Plt Count 328 (130-400) K/uL MPV 8.9 L (9.4-12.4) fL Immature Gran % (Auto) 1.0 % Neut % (Auto) 72.4 % Lymph % (Auto) 19.4 % [place] % (Auto) 5.6 % Eos % (Auto) 1.1 % Baso % (Auto) 0.5 % Neut # (Auto) 7.09 H (1.40-6.50) K/uL Lymph # (Auto) 1.90 (1.2-3.4) K/uL [place] # (Auto) 0.55 (0.11-0.59) K/uL Eos # (Auto) 0.11 (0-0.50) K/uL Baso # (Auto) 0.05 (0-0.2) K/uL Immature Gran # (Auto) 0.10 (0.01-0.20) K/uL Sodium 138 (136-145) mmol/L Potassium 3.7 (3.5-5.1) mmol/L Chloride 96 L (98-107) mmol/L Carbon Dioxide 32 (21-32) mmol/L Anion Gap 10 (3-11) BUN 15 (6-23) mg/dl Creatinine 0.66 (0.6-1.2) mg/dl Est Cr Clr Drug Dosing 108.9 ml/min Est GFR ( Amer) 113.7 ml/min Est GFR (Non-Af Amer) 98.1 ml/min BUN/Creatinine Ratio 22.7 H (10-20) Glucose 149 H (70-99(Fasting)) mg/dl Calcium 9.7 (8.5-10.1) mg/dl Magnesium 2.1 (1.7-2.4) mg/dl Total Bilirubin 0.5 (0.2-1.0) mg/dl AST 16 (13-39) U/L ALT 16 (7-52) U/L Alkaline Phosphatase 76 (34-104) U/L Troponin I High Sens 6.1 (0-14) pg/ml Total Protein 8.0 (6.0-8.3) gm/dl Albumin 4.5 (3.4-5.0) gm/dl Globulin 3.5 (2.5-4.0) gm/dl Albumin/Globulin Ratio 1.3 (0.9-2) Lipase 32 (11-82) U/L TSH 4.209 (0.300-4.500) uIu/ml SARS-CoV-2 (PCR) (Negative) Influenza Type A (PCR) (Neg) Influenza Type B (PCR) (Neg) RSV (RT-PCR) (Neg) 06/13/22 06/13/22 Range/Units 02:32 05:26 WBC (4.8-10.8) K/ul RBC (4.20-5.40) M/uL Hgb (12.0-16.0) g/dl Hct (37.0-47.0) % MCV (80.0-100.0) fL MCH (25.0-34.0) pg MCHC (32.0-36.0) g/dL RDW Std Deviation (36.4-46.3) fL RDW Coeff of Ce (11.5-14.5) % Plt Count (130-400) K/uL MPV (9.4-12.4) fL Immature Gran % (Auto) % Neut % (Auto) % Lymph % (Auto) % [place] % (Auto) % Eos % (Auto) % Baso % (Auto) % Neut # (Auto) (1.40-6.50) K/uL Lymph # (Auto) (1.2-3.4) K/uL [place] # (Auto) (0.11-0.59) K/uL Eos # (Auto) (0-0.50) K/uL Baso # (Auto) (0-0.2) K/uL Immature Gran # (Auto) (0.01-0.20) K/uL Sodium (136-145) mmol/L Potassium (3.5-5.1) mmol/L Chloride (98-107) mmol/L Carbon Dioxide (21-32) mmol/L Anion Gap (3-11) BUN (6-23) mg/dl Creatinine (0.6-1.2) mg/dl Est Cr Clr Drug Dosing ml/min Est GFR ( Amer) ml/min Est GFR (Non-Af Amer) ml/min BUN/Creatinine Ratio (10-20) Glucose (70-99(Fasting)) mg/dl Calcium (8.5-10.1) mg/dl Magnesium (1.7-2.4) mg/dl Total Bilirubin (0.2-1.0) mg/dl AST (13-39) U/L ALT (7-52) U/L Alkaline Phosphatase (34-104) U/L Troponin I High Sens 5.8 (0-14) pg/ml Total Protein (6.0-8.3) gm/dl Albumin (3.4-5.0) gm/dl Globulin (2.5-4.0) gm/dl Albumin/Globulin Ratio (0.9-2) Lipase (11-82) U/L TSH (0.300-4.500) uIu/ml SARS-CoV-2 (PCR) NEGATIVE (Negative) Influenza Type A (PCR) Negative (Neg) Influenza Type B (PCR) Negative (Neg) RSV (RT-PCR) Negative (Neg) Discharge Plan Visit Data Chief Complaint: Chest Pain Stated Complaint: CHEST PAIN,L HAND NUMBNESS,TACHYCARDIA ED Provider: Katy Peters Discharge Problem: Chest pain, Palpitations, Hypertension Forms Stand Alone Forms: [facility] Prescriptions Prescriptions: No Action aspirin [Marina Low Dose Aspirin] 81 mg Tablet,Delayed Release (Dr/Ec) 81 mg PO QAM metoprolol succinate 50 mg Tablet Extended Release 24 Hr 50 mg PO BID 30 Days Qty: 60 1RF spironolactone 25 mg Tablet 25 mg PO DAILY 30 Days Qty: 30 1RF Eliquis 5 mg Tablet 5 mg PO BID 30 Days Qty: 60 1RF Referrals Referrals: Clinton Avilez MD [Primary Care Provider] -
[2022-06-12 23:48] LABS: Basophils # (auto) 0.05 K/uL (0-0.2); Basophils % (auto) 0.5 %; Eosinophils # (auto) 0.11 K/uL (0-0.50); Eosinophils % (auto) 1.1 %; Hemoglobin 13.8 g/dl (12.0-16.0); Lymphocytes % (auto) 19.4 %; Mean Corpuscular Hemoglobin 26.7 pg (25.0-34.0); Mean Corpuscular Hgb Conc 32.1 g/dL (32.0-36.0); Mean Corpuscular Volume 83.3 fL (80.0-100.0); Mean Platelet Volume 8.9 fL (9.4-12.4); Monocytes # (auto) 0.55 K/uL (0.11-0.59); Monocytes % (auto) 5.6 %; Neutrophils # (auto) 7.09 K/uL (1.40-6.50); Neutrophils % (auto) 72.4 %; Platelet Count 328 K/uL (130-400); RDW Coefficient of Variation 14.9 % (11.5-14.5); RDW Standard Deviation 45.4 fL (36.4-46.3); Red Blood Count 5.16 M/uL (4.20-5.40)
[2022-06-13 00:01] LABS: Albumin Globulin Ratio 1.3 (0.9-2); Albumin Level 4.5 gm/dl (3.4-5.0); BUN Creatinine Ratio 22.7 (10-20); Bilirubin,Total 0.5 mg/dl (0.2-1.0); Calcium 9.7 mg/dl (8.5-10.1); Creatinine Clr Calc Pharmacy 108.9 ml/min; Est GFR (African American) 113.7 ml/min; Est GFR (Non-African American) 98.1 ml/min; Globulin 3.5 gm/dl (2.5-4.0); Magnesium 2.1 mg/dl (1.7-2.4); Potassium 3.7 mmol/L (3.5-5.1)
[2022-06-13 00:08] LABS: Troponin I High Sensitivity 6.1 pg/ml (0-14)
--- NOTE | 2022-06-13 05:12 | History & Physical Report ---
Date of Service June 13, 2022 Assessment & Plan (1) Chest pain: Plan: Chest pain possible unstable angina Abnormal outpatient stress test from 2 weeks ago chronic diastolic heart failure (EF 65 to 70%, TTE 2022), euvolemic PAF on Eliquis hypertension, stable hyperlipidemia/statin intolerance, Praluent candidate as per cardiology prediabetes, hemoglobin A1c of 6.3 last April, OBS PCU Aspirin for CAD prevention Cardiology consult Re: Unstable angina (ER provider already in touch with Dr. Dove who recommends diagnostic cardiac catheterization in a.m.) Hold Eliquis until patient seen by cardiology DVT prophylaxis. SCDs while Eliquis on hold Full code Text document was generated using [employer]TRA voice recognition software. It may contain grammatical or spelling errors. Kindly contact undersigned for clarification of any documentation item in question. History of Present Illness Chief Complaint: Chest pain Primary Care Provider: Clinton Avilez MD History obtained from patient and records. Medical history significant for chronic diastolic heart failure (EF 65 to 70%, TTE 2022, PAF on Eliquis, hypertension, hyperlipidemia, statin intolerance, prediabetes. Recent confinement April 2022 for diastolic heart failure and new onset A-fib. Patient discharged on metoprolol, diuretic, and Eliquis medications. [place] [facility] [place] on follow-up visit 5 weeks ago. Patient mention intermittent chest tightness and shortness of breath symptoms on exertion. Abnormal outpatient nuclear stress test last June 05, 2022 Small LV of apical inferolateral ischemia. Outpatient diagnostic cardiac catheterization tentatively scheduled at [facility] July 05, 2022. Patient was watching television last night when she experienced chest tightness and palpitations. Patient compliant with home medications. Patient currently comfortable. 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 Allergies Allergy/AdvReac Type Severity Reaction Status Date / Time [id number]-GuU Reductase AdvReac Intermediate Cramping Verified 06/12/22 23:46 Inhibitor of the [Vkanagj-Ckd-Rhw Reductase Muscles Inhibitor] Home Medications Medication Instructions Recorded Confirmed Type aspirin 81 mg tablet,delayed 81 mg PO QAM 12/18/19 06/12/22 History release (Marina Low Dose Aspirin) apixaban 5 mg tablet (Eliquis) 5 mg PO BID 30 days #60 tabs 04/20/22 06/12/22 Rx metoprolol succinate 50 mg 50 mg PO BID 30 days #60 tabs 04/20/22 06/12/22 Rx tablet,extended release 24 hr spironolactone 25 mg tablet 25 mg PO DAILY 30 days #30 tabs 04/20/22 06/12/22 Rx Past Med/Surg History Medical History Acute pancreatitis Cholelithiasis DVT prophylaxis Fluid overload Gallstone pancreatitis Gallstone pancreatitis GERD (gastroesophageal reflux disease) Hiatal hernia Hyperlipidemia Hypertension Hypokalemia Morbid obesity Osteoarthritis Surgical History History of total bilateral knee replacement (TKR) Hx of section Family History Mother Heart disease Father Heart disease Social History Smoking Status: Never smoker Second Hand Exposure: No; Hx Alcohol Use: Yes Alcohol type: wine Alcohol Intake Frequency: 2-4 x/Month Hx Substance Use: No Preferred Language: Martiniquais Communication Ability: Effective Social Media Project Manager Required: No Beliefs That Will Affect Care: None Current Living Situation: Spouse Feels Safe at Home: Yes Assistive Devices: None Review of Systems Review of Systems: As per HPI, all other systems reviewed and negative Physical Exam Physical Exam: GENERAL: Comfortable, morbidly obese, slightly anxious, no respiratory distress SKIN: Normal color, warm HEENT: [place] palpebral conjunctivae, no ptosis, dry buccal mucosa NECK : Supple, short neck, no tenderness CHEST : CTA, no tenderness HEART : RRR, no obvious murmurs ABDOMEN: Some distention, nontender EXTREMITIES : Minimal LE swelling, no LE tenderness, no other conspicuous deformities noted NEUROLOGIC : Coherent, no facial asymmetry, no other gross focality Results & Data Results & Data ([facility]) Vital Signs (Past 12 Hours) Vital Signs Temp Pulse Resp BP BP Pulse Ox O2 Del Method 06/13/22 04:00 82 06/13/22 03:00 18 108/74 98 06/13/22 03:00 82 18 94 06/13/22 03:00 108/75 06/13/22 02:30 78 21 94 06/13/22 02:00 82 18 94 06/13/22 02:00 134/88 06/13/22 01:30 91 H 18 94 06/13/22 01:00 100 H 12 98 06/13/22 01:00 139/85 06/13/22 00:00 85 17 126/81 94 06/12/22 23:39 92 H 20 127/67 94 06/12/22 23:40 92 H 06/12/22 22:48 36.4 C L 98 H 18 179/94 H 96 Room Air Laboratory Results Laboratory Results WBC 9.80 K/ul (4.8-10.8) 06/12/22 23: RBC 5.16 M/uL (4.20-5.40) 06/12/22 23:22 Hgb 13.8 g/dl (12.0-16.0) 06/12/22 23: Hct 43.0 % (37.0-47.0) 06/12/22 23: MCV 83.3 fL (80.0-100.0) 06/12/22 23:22 MCH 26.7 pg (25.0-34.0) 06/12/22 23: MCHC 32.1 g/dL (32.0-36.0) 06/12/22 23:22 RDW Std Deviation 45.4 fL (36.4-46.3) 06/12/22 23:22 RDW Coeff of Ce 14.9 % (11.5-14.5) H 06/12/22 23:22 Plt Count 328 K/uL (130-400) 06/12/22 23:22 MPV 8.9 fL (9.4-12.4) L 06/12/22 23:22 Immature Gran % (Auto) 1.0 % 06/12/22 23: Neut % (Auto) 72.4 % 06/12/22 23: Lymph % (Auto) 19.4 % 06/12/22 23: [place] % (Auto) 5.6 % 06/12/22 23:22 Eos % (Auto) 1.1 % 06/12/22 23: Baso % (Auto) 0.5 % 06/12/22 23:22 Neut # (Auto) 7.09 K/uL (1.40-6.50) H 06/12/22 23:22 Lymph # (Auto) 1.90 K/uL (1.2-3.4) 06/12/22 23:22 [place] # (Auto) 0.55 K/uL (0.11-0.59) 06/12/22 23:22 Eos # (Auto) 0.11 K/uL (0-0.50) 06/12/22 23:22 Baso # (Auto) 0.05 K/uL (0-0.2) 06/12/22 23:22 Immature Gran # (Auto) 0.10 K/uL (0.01-0.20) 06/12/22 23:22 Sodium 138 mmol/L (136-145) 06/12/22 23:22 Potassium 3.7 mmol/L (3.5-5.1) 06/12/22 23:22 Chloride 96 mmol/L (98-107) L 06/12/22 23:22 Carbon Dioxide 32 mmol/L (21-32) 06/12/22 23:22 Anion Gap 10 (3-11) 06/12/22 23:22 BUN 15 mg/dl (6-23) 06/12/22 23:22 Creatinine 0.66 mg/dl (0.6-1.2) 06/12/22 23:22 Est Cr Clr Drug Dosing 108.9 ml/min 06/12/22 23:22 Est GFR ( Amer) 113.7 ml/min 06/12/22 23:22 Est GFR (Non-Af Amer) 98.1 ml/min 06/12/22 23:22 BUN/Creatinine Ratio 22.7 (10-20) H 06/12/22 23:22 Glucose 149 mg/dl (70-99(Fasting)) H 06/12/22 23:22 Calcium 9.7 mg/dl (8.5-10.1) 06/12/22 23:22 Magnesium 2.1 mg/dl (1.7-2.4) 06/12/22 23:22 Total Bilirubin 0.5 mg/dl (0.2-1.0) 06/12/22 23:22 AST 16 U/L (13-39) 06/12/22 23:22 ALT 16 U/L (7-52) 06/12/22 23:22 Alkaline Phosphatase 76 U/L (34-104) 06/12/22 23:22 Troponin I High Sens 5.8 pg/ml (0-14) 06/13/22 02:32 Total Protein 8.0 gm/dl (6.0-8.3) 06/12/22 23:22 Albumin 4.5 gm/dl (3.4-5.0) 06/12/22 23:22 Globulin 3.5 gm/dl (2.5-4.0) 06/12/22 23:22 Albumin/Globulin Ratio 1.3 (0.9-2) 06/12/22 23:22 Lipase 32 U/L (11-82) 06/12/22 23:22 TSH 4.209 uIu/ml (0.300-4.500) 06/12/22 23:22 Diagnostic Findings Chest x-ray as per my interpretation no congestion EKG as per my interpretation : Rate 100, NSR, normal axis, no ischemia
[2022-06-13] MEDS ORDERED: PROMETHAZINE HCL 12.5 MG in SODIUM CHLORIDE 0.9% 50 ML IV PRN (05:16)
[2022-06-13] MEDS ORDERED: oxyCODONE HCL IR 5 MG TAB (IMMEDIATE RELEASE) PO PRN (05:16)
[2022-06-13] MEDS ORDERED: MoRPHine SULFATE 4 MG/ML 1 ML CARP\\VIAL IV PRN (05:16)
[2022-06-13] MEDS ORDERED: LORazepam 0.5 MG TAB PO PRN (05:16)
[2022-06-13 06:46] LABS: Influenza A virus by PCR Negative (Neg); Influenza B virus by PCR Negative (Neg); RSV by PCR Negative (Neg); SARS CoV2 RNA(COVID-19) Ceph NEGATIVE (Negative)
--- NOTE | 2022-06-13 08:08 | XRay Report ---
XR chest 1V portable HISTORY: 56 years-old Female chest pain . Acute chest pain COMPARISON: April 18, 2022 TECHNIQUE: AP view of the chest FINDINGS: Cardiomediastinal and hilar silhouettes are within normal limits. No pneumothorax, pleural effusion, airspace consolidation or overt pulmonary edema. Degenerative changes of the shoulders and spine. IMPRESSION: No acute process. ACT 112: Negative or not required by law. The above report was generated using voice recognition software. It may contain grammatical, syntax o r spelling errors. Electronically signed by: David Hernández M.D. 06/13/2022 8:06 AM
[2022-06-13] MEDS ORDERED: LACTATED RINGER'S 1,000 ML IV ONE (08:11)
[2022-06-13 08:26] LABS: Basophils # (auto) 0.04 K/uL (0-0.2); Basophils % (auto) 0.6 %; Eosinophils % (auto) 1.4 %; Hematocrit (blood only) 42.5 % (37.0-47.0); Hemoglobin 13.5 g/dl (12.0-16.0); Immature Granulocytes # (auto) 0.12 K/uL (0.01-0.20); Immature Granulocytes % (auto) 1.7 %; Lymphocytes # (auto) 2.01 K/uL (1.2-3.4); Lymphocytes % (auto) 28.7 %; Mean Corpuscular Hemoglobin 26.2 pg (25.0-34.0); Mean Corpuscular Hgb Conc 31.8 g/dL (32.0-36.0); Mean Corpuscular Volume 82.4 fL (80.0-100.0); Mean Platelet Volume 8.5 fL (9.4-12.4); Monocytes # (auto) 0.52 K/uL (0.11-0.59); Monocytes % (auto) 7.4 %; Neutrophils # (auto) 4.22 K/uL (1.40-6.50); Neutrophils % (auto) 60.2 %; Platelet Count 331 K/uL (130-400); RDW Standard Deviation 45.4 fL (36.4-46.3); Red Blood Count 5.16 M/uL (4.20-5.40); White Blood Count 7.01 K/ul (4.8-10.8)
[2022-06-13] MEDS ORDERED: NITROGLYCERIN SL 0.4 MG/TAB TAB SL PRN (08:35)
[2022-06-13] MEDS ORDERED: ACETAMINOPHEN 325 MG TAB PO PRN (08:35)
[2022-06-13 08:52] LABS: BUN Creatinine Ratio 28.6 (10-20); Calcium 9.6 mg/dl (8.5-10.1); Chol HDL Ratio 5.8 (0-5); Creatinine Clr Calc Pharmacy 146.6 ml/min; Est GFR (African American) 125.3 ml/min; Est GFR (Non-African American) 108.2 ml/min; Potassium 3.6 mmol/L (3.5-5.1)
[2022-06-13 09:05] LABS: Partial Thromboplastin Ratio 1.1; Partial Thromboplastin Time 29.2 Seconds (21.0-31.0)
[2022-06-13] MEDS ORDERED: SODIUM CHLORIDE 0.9% 1000ML 1,000 ML IV SCH (09:15)
[2022-06-13] MEDS ORDERED: Heparin IV Adult Wt-Based Standard *NO* Bolus Protocol IV ONE (09:24)
--- NOTE | 2022-06-13 09:28 | Cardiology Consultation ---
Date of Consultation June 13, 2022 Assessment & Plan (1) Chest pain: (2) Morbid obesity: (3) Hypertensive heart disease with chronic diastolic congestive heart failure: (4) PAF (paroxysmal atrial fibrillation): Plan The patient's last dose of Eliquis was at 6 PM last night. The patient is clinically stable and cardiac markers are negative so I do not believe that this is an urgent heart cath. She will be started on IV heparin with no bolus today. We will continue to hold the Eliquis and then by tomorrow it should be reasonable to proceed with a heart catheterization. I have explained the risk, benefit and intent of the procedure to the patient and she is willing to p roceed. History of Present Illness Attending Physician: Xochitl Wall MD History of Present Illness This is a 56-year-old female who was admitted here in April with atrial fibrillation and diastolic heart failure. The patient was successfully treated with metoprolol and Eliquis. She was seen in follow-up and had complaints of some mild atypical chest pain and underwent a nuclear stress test which suggested a small area of ischemia at the apex of the heart. She was scheduled to have an outpatient heart catheterization later this month but had some discomfort yesterday and decided to present to the emergency department. EKG reveals normal sinus rhythm and essentially is normal. High-sensitivity troponin is negative. Allergies Allergy/AdvReac Type Severity Reaction Status Date / Time [id number]-SZU-KwB Reductase AdvReac Intermediate Cramping Verified 06/12/22 23:46 Inhibitor of the [Hflcags-Ito-Xdl Reductase Muscles Inhibitor] Home Medications Medication Instructions Recorded Confirmed Type aspirin 81 mg tablet,delayed 81 mg PO QAM 12/18/19 06/12/22 History release (Marina Low Dose Aspirin) apixaban 5 mg tablet (Eliquis) 5 mg PO BID 30 days #60 tabs 04/20/22 06/12/22 Rx metoprolol succinate 50 mg 50 mg PO BID 30 days #60 tabs 04/20/22 06/12/22 Rx tablet,extended release 24 hr spironolactone 25 mg tablet 25 mg PO DAILY 30 days #30 tabs 04/20/22 06/12/22 Rx Patient History Medical History Acute pancreatitis Cholelithiasis DVT prophylaxis Fluid overload Gallstone pancreatitis Gallstone pancreatitis GERD (gastroesophageal reflux disease) Hiatal hernia Hyperlipidemia Hypertension Hypokalemia Morbid obesity Osteoarthritis Surgical History History of total bilateral knee replacement (TKR) Hx of section Family History Mother Heart disease Father Heart disease Social History Smoking Status: Never smoker Second Hand Exposure: No; Hx Alcohol Use: Yes Alcohol type: wine Alcohol Intake Frequency: 2-4 x/Month Hx Substance Use: No Preferred Language: Bolivian Communication Ability: Effective House Builder Required: No Beliefs That Will Affect Care: None Current Living Situation: Spouse Feels Safe at Home: Yes Safety Concerns: Feels Safe At This Time Assistive Devices: None Review of Systems Review of Systems: Review of Systems: See HPI for pertinent positives. All other 10 point review of systems are negative. Physical Exam Physical Exam: General: no acute distress and stated age Head: normocephalic, no masses, lesions, tenderness or abnormalities Eyes: conjunctiva are pink and non-injected, sclera clear Neck: supple, no adenopathy, no bruits, normal jugular venous pulse, no hepatojugular reflux Chest: normal shape and normal respiratory effort Lungs: clear to auscultation and percussion Cardiac Exam: - regular rate & rhythm, no murmurs gallops or rubs - normal S1, normal S2 Pulses: 2(+) throughout Abdomen: abdomen soft, non-tender, no abnormal masses and no hepatosplenomegaly Musculoskeletal: no gait disturbance, no joint inflammation, no deforming arthritis Extremities: no edema and no cyanosis Neuro: grossly normal exam Results & Data ([facility]) Vital Signs (Past 12 Hours) Vital Signs Temp Pulse Pulse Resp BP BP Pulse Ox 06/13/22 08:50 87 06/13/22 08:38 36.6 C 84 18 145/96 H 96 06/13/22 08:01 92 H 19 141/67 H 92 06/13/22 07:31 92 H 20 132/83 93 06/13/22 07:01 82 17 140/88 96 06/13/22 04:00 82 06/13/22 03:00 18 108/74 98 06/13/22 03:00 82 18 94 06/13/22 03:00 108/75 06/13/22 02:30 78 21 94 06/13/22 02:00 82 18 94 06/13/22 02:00 134/88 06/13/22 01:30 91 H 18 94 06/13/22 01:00 100 H 12 98 06/13/22 01:00 139/85 06/13/22 00:00 85 17 126/81 94 06/12/22 23:39 92 H 20 127/67 94 06/12/22 23:40 92 H 06/12/22 22:48 36.4 C L 98 H 18 179/94 H 96 O2 Del Method 06/13/22 08:50 06/13/22 08:38 Room Air 06/13/22 08:01 Room Air 06/13/22 07:31 Room Air 06/13/22 07:01 Room Air 06/13/22 04:00 06/13/22 03:00 06/13/22 03:00 06/13/22 03:00 06/13/22 02:30 06/13/22 02:00 06/13/22 02:00 06/13/22 01:30 06/13/22 01:00 06/13/22 01:00 06/13/22 00:00 06/12/22 23:39 06/12/22 23:40 06/12/22 22:48 Room Air Laboratory Results Laboratory Results - last 24 hr 06/12/22 06/12/22 06/12/22 23:22 23:22 23:22 WBC 9.80 RBC 5.16 Hgb 13.8 Hct 43.0 MCV 83.3 MCH 26.7 MCHC 32.1 RDW Std Deviation 45.4 RDW Coeff of Ce 14.9 H Plt Count 328 MPV 8.9 L Immature Gran % (Auto) 1.0 Neut % (Auto) 72.4 Lymph % (Auto) 19.4 Callahan % (Auto) 5.6 Eos % (Auto) 1.1 Baso % (Auto) 0.5 Neut # (Auto) 7.09 H Lymph # (Auto) 1.90 Callahan # (Auto) 0.55 Eos # (Auto) 0.11 Baso # (Auto) 0.05 Immature Gran # (Auto) 0.10 APTT PTT Ratio Sodium 138 Potassium 3.7 Chloride 96 L Carbon Dioxide 32 Anion Gap 10 BUN 15 Creatinine 0.66 Est Cr Clr Drug Dosing 108.9 Est GFR ( Amer) 113.7 Est GFR (Non-Af Amer) 98.1 BUN/Creatinine Ratio 22.7 H Glucose 149 H Calcium 9.7 Magnesium 2.1 Total Bilirubin 0.5 AST 16 ALT 16 Alkaline Phosphatase 76 Troponin I High Sens 6.1 Total Protein 8.0 Albumin 4.5 Globulin 3.5 Albumin/Globulin Ratio 1.3 Triglycerides Cholesterol LDL Cholesterol, Calc VLDL Cholesterol, Calc HDL Cholesterol Cholesterol/HDL Ratio Lipase 32 TSH 4.209 SARS-CoV-2 (PCR) Influenza Type A (PCR) Influenza Type B (PCR) RSV (RT-PCR) 06/13/22 06/13/22 06/13/22 02:32 05:26 08:04 WBC RBC Hgb Hct MCV MCH MCHC RDW Std Deviation RDW Coeff of Ce Plt Count MPV Immature Gran % (Auto) Neut % (Auto) Lymph % (Auto) Callahan % (Auto) Eos % (Auto) Baso % (Auto) Neut # (Auto) Lymph # (Auto) Callahan # (Auto) Eos # (Auto) Baso # (Auto) Immature Gran # (Auto) APTT 29.2 PTT Ratio 1.1 Sodium Potassium Chloride Carbon Dioxide Anion Gap BUN Creatinine Est Cr Clr Drug Dosing Est GFR ( Amer) Est GFR (Non-Af Amer) BUN/Creatinine Ratio Glucose Calcium Magnesium Total Bilirubin AST ALT Alkaline Phosphatase Troponin I High Sens 5.8 Total Protein Albumin Globulin Albumin/Globulin Ratio Triglycerides Cholesterol LDL Cholesterol, Calc VLDL Cholesterol, Calc HDL Cholesterol Cholesterol/HDL Ratio Lipase TSH SARS-CoV-2 (PCR) NEGATIVE Influenza Type A (PCR) Negative Influenza Type B (PCR) Negative RSV (RT-PCR) Negative 06/13/22 06/13/22 06/13/22 08:04 08:04 08:04 WBC 7.01 RBC 5.16 Hgb 13.5 Hct 42.5 MCV 82.4 MCH 26.2 MCHC 31.8 L RDW Std Deviation 45.4 RDW Coeff of Ce 15.0 H Plt Count 331 MPV 8.5 L Immature Gran % (Auto) 1.7 Neut % (Auto) 60.2 Lymph % (Auto) 28.7 Callahan % (Auto) 7.4 Eos % (Auto) 1.4 Baso % (Auto) 0.6 Neut # (Auto) 4.22 Lymph # (Auto) 2.01 Callahan # (Auto) 0.52 Eos # (Auto) 0.10 Baso # (Auto) 0.04 Immature Gran # (Auto) 0.12 APTT PTT Ratio Sodium Potassium Chloride Carbon Dioxide Anion Gap BUN Creatinine Est Cr Clr Drug Dosing Est GFR ( Amer) Est GFR (Non-Af Amer) BUN/Creatinine Ratio Glucose Calcium Magnesium Total Bilirubin AST ALT Alkaline Phosphatase Troponin I High Sens 5.0 Total Protein Albumin Globulin Albumin/Globulin Ratio Triglycerides 231 H Cholesterol 302 H LDL Cholesterol, Calc 204 VLDL Cholesterol, Calc 46 H HDL Cholesterol 52 Cholesterol/HDL Ratio 5.8 H Lipase TSH SARS-CoV-2 (PCR) Influenza Type A (PCR) Influenza Type B (PCR) RSV (RT-PCR) 06/13/22 08:04 WBC RBC Hgb Hct MCV MCH MCHC RDW Std Deviation RDW Coeff of Ce Plt Count MPV Immature Gran % (Auto) Neut % (Auto) Lymph % (Auto) Callahan % (Auto) Eos % (Auto) Baso % (Auto) Neut # (Auto) Lymph # (Auto) Callahan # (Auto) Eos # (Auto) Baso # (Auto) Immature Gran # (Auto) APTT PTT Ratio Sodium 139 Potassium 3.6 Chloride 99 Carbon Dioxide 33 H Anion Gap 7 BUN 14 Creatinine 0.49 L Est Cr Clr Drug Dosing 146.6 Est GFR ( Amer) 125.3 Est GFR (Non-Af Amer) 108.2 BUN/Creatinine Ratio 28.6 H Glucose 115 H Calcium 9.6 Magnesium Total Bilirubin AST ALT Alkaline Phosphatase Troponin I High Sens Total Protein Albumin Globulin Albumin/Globulin Ratio Triglycerides Cholesterol LDL Cholesterol, Calc VLDL Cholesterol, Calc HDL Cholesterol Cholesterol/HDL Ratio Lipase TSH SARS-CoV-2 (PCR) Influenza Type A (PCR) Influenza Type B (PCR) RSV (RT-PCR) Medications Administered Current Inpatient Medications Acetaminophen (Acetaminophen 325 Mg Tab) 650 mg PO Q4H PRN PRN Reason: Pain or Fever Stop: 07/13/22 08:34 Aspirin (Aspirin 81 Mg Ectab) 81 mg PO QAM KENDRICK Stop: 07/13/22 08:59 Fenofibrate (Fenofibrate Nanocrystallized 145 Mg Tablet) 145 mg PO QAM KENDRICK Stop: 07/14/22 08:59 Promethazine HCl 12.5 mg/ (Sodium Chloride) 50.5 mls @ 202 mls/hr IV Q6H PRN PRN Reason: Nausea And Vomiting Stop: 07/13/22 05:15 Heparin Sodium/Dextrose (Heparin Sodium/Dextrose) 25,000 units in 500 mls @ 26 mls/hr IV .[id number] [facility]; Protocol Stop: 07/13/22 09:29 Last Admin: 06/13/22 09:29 Dose: 1,300 units/hr, 26 mls/hr Sodium Chloride (Nss 1000ml) 1,000 mls @ 1 mls/hr IV .Q24H [facility] Stop: 07/13/22 09:14 Lorazepam (Lorazepam 0.5 Mg Tab) 0.5 mg PO TID PRN PRN Reason: Anxiety Stop: 07/13/22 05:15 Metoprolol Succinate (Metoprolol Succ 25mg Ext Rel Tab) 25 mg PO BID [facility] Stop: 07/13/22 08:59 Morphine Sulfate (Morphine Sulfate 4 Mg/Ml 1 Ml Carp\Vial) 4 mg IV Q4H PRN PRN Reason: Pain Stop: 06/27/22 05:15 Nitroglycerin (Nitroglycerin Sl 0.4 Mg/Tab Tab) 0.4 mg SL UD PRN PRN Reason: Chest Pain Stop: 07/13/22 08:34 Oxycodone HCl (Oxycodone Hcl Ir 5 Mg Tab (Immediate Release)) 5 mg PO Q4H PRN PRN Reason: Pain Stop: 06/27/22 05:15
[2022-06-13] MEDS: HEPARIN SODIUM/DEXTROSE 25,000 UNITS/500 ML BAG IV SCH (09:29)
[2022-06-13] MEDS: METOPROLOL SUCC 25MG EXT REL TAB PO SCH ×2 (10:02→20:21)
[2022-06-13] MEDS: ASPIRIN 81 MG ECTAB PO SCH (10:02)
--- NOTE | 2022-06-13 10:39 | Communication Note ---
Date of Service: June 13, 2022 Patient was admitted today for chest discomfort, recent abnormal outpatient stress test. She was seen at bedside. Chart reviewed. Plan for cardiac cath tomorrow (she needs to be off Eliquis). Full note tomorrow
--- NOTE | 2022-06-13 15:38 | Electrocardiogram Report ---
Test Reason : Blood Pressure : / mmHG Vent. Rate : 099 BPM Atrial Rate : 099 BPM P-R Int : 168 ms QRS Dur : 062 ms QT Int : 350 ms P-R-T Axes : 068 023 041 degrees QTc Int : 449 ms Poor data quality, interpretation may be adversely affected Normal sinus rhythm Possible Left atrial enlargement Nonspecific ST abnormality Abnormal ECG When compared with ECG of 20-APR-2022 05:18, No significant change was found Confirmed by Jsoe Hines ([id number]) on 06/13/2022 3:38:21 PM Referred By: REFERRED SELF Confirmed By:Jose Hines
[2022-06-13 16:26] LABS: Partial Thromboplastin Ratio 1.2; Partial Thromboplastin Time 32.7 Seconds (21.0-31.0)
[2022-06-13] MEDS ORDERED: HEPARIN SOD (PORCINE) 1000 UNIT/ML IV ONE (17:21)
[2022-06-14] MEDS: SODIUM CHLORIDE 0.9% 1000ML 1,000 ML IV SCH ×2 (00:05→08:36)
[2022-06-14 00:31] LABS: Partial Thromboplastin Ratio 1.5; Partial Thromboplastin Time 40.5 Seconds (21.0-31.0)
[2022-06-14] MEDS: HEPARIN SODIUM/DEXTROSE 25,000 UNITS/500 ML BAG IV SCH ×2 (03:32→13:20)
[2022-06-14 06:52] LABS: Hematocrit (blood only) 43.4 % (37.0-47.0); Hemoglobin 13.6 g/dl (12.0-16.0); Mean Corpuscular Hemoglobin 26.3 pg (25.0-34.0); Mean Corpuscular Hgb Conc 31.3 g/dL (32.0-36.0); Mean Corpuscular Volume 83.9 fL (80.0-100.0); Mean Platelet Volume 8.8 fL (9.4-12.4); Platelet Count 321 K/uL (130-400); RDW Coefficient of Variation 15.1 % (11.5-14.5); RDW Standard Deviation 45.7 fL (36.4-46.3); Red Blood Count 5.17 M/uL (4.20-5.40)
[2022-06-14 07:13] LABS: Calcium 9.2 mg/dl (8.5-10.1); Creatinine Clr Calc Pharmacy 144.9 ml/min; Est GFR (African American) 124.5 ml/min; Est GFR (Non-African American) 107.4 ml/min; Potassium 3.7 mmol/L (3.5-5.1)
[2022-06-14 07:28] LABS: Partial Thromboplastin Ratio 1.6
[2022-06-14] MEDS: ASPIRIN 81 MG ECTAB PO SCH (07:57)
[2022-06-14] MEDS: METOPROLOL SUCC 25MG EXT REL TAB PO SCH (07:57)
[2022-06-14] MEDS ORDERED: FENOFIBRATE NANOCRYSTALLIZED 145 MG TABLET PO SCH (09:00)
[2022-06-14] MEDS ORDERED: MIDAZOLAM HCL 1 MG/ML 2ML VIAL ONE (12:34)
[2022-06-14] MEDS ORDERED: niCARdipine HCL INJ 2.5 MG/ML 10 ML AMP ONE (12:34)
[2022-06-14] MEDS ORDERED: HEPARIN (PORCINE) 1000 UNIT/ML 10 ML (CATH LAB USE ONLY) ONE (12:34)
[2022-06-14] MEDS ORDERED: NITROGLYCERIN/D5W 100MCG/ML 20ML SYR ONE (12:35)
--- NOTE | 2022-06-14 13:26 | Cardiac Catheterization ---
Date of Service June 14, 2022 Cardiac Cath Report Cardiac Cath Report Procedure: 1. Coronary angiography History: This is a 56-year-old female with a history of PAF and chest pain. She had an abnormal pharmacologic nuclear stress test and was scheduled for an elective cardiac cath however, she presented to the hospital after experiencing more chest pain. Procedure summary: After informed consent was obtained the patient was prepped and draped in the usual manner for a right transradial approach. Preformed 5 [place] diagnostic catheters utilized for the coronary angiograms. Following the procedure the patient was returned to the holding area the Virtual Reality Specialist in stable condition. ACC data: Start time 1302 End time 1313 Opening aortic pressure 145/91 Closing aortic pressure 137/94 LV pressurevalve not crossed Sedation 1 mg intravenous Versed IV fluid 45 cc normal saline Contrast 50 cc Optiray Fluoroscopy time 2.1 minutes Radiation 653 mGy DAP 62.60 Osorio per centimeter squared Right dominant system AUC score 9 Coronary angiography: Selective right coronary artery reveal it to be dominant. The right coronary artery is widely patent. Injections into the left coronary artery revealed the left main trunk to be widely patent. There is a large ramus branch from the proximal left circumflex artery which is widely patent. The left circumflex itself consists of mainly 2 large posterior lateral marginal branches. The left circumflex system is widely patent. The LAD system gives off 2 small diagonal branches. The LAD system is widely patent. Summary: Widely patent coronary arteries. Recommendations: Continued risk factor modification.
[2022-06-14] MEDS ORDERED: HEPARIN STOP ORDER ONE (13:30)
[2022-06-14 14:59] LABS: Partial Thromboplastin Time 27.9 Seconds (21.0-31.0)
--- NOTE | 2022-06-14 17:04 | Discharge Summary ---
Date of Service June 14, 2022 Admission HPI Per Admitting Provider History obtained from patient and records. Medical history significant for chronic diastolic heart failure (EF 65 to 70%, TTE 2022, PAF on Eliquis, hypertension, hyperlipidemia, statin intolerance, prediabetes. Recent confinement April 2022 for diastolic heart failure and new onset A-fib. Patient discharged on metoprolol, diuretic, and Eliquis medications. [place] [facility] on follow-up visit 5 weeks ago. Patient mention intermittent chest tightness and shortness of breath symptoms on exertion. Abnormal outpatient nuclear stress test last June 05, 2022 Small LV of apical inferolateral ischemia. Outpatient diagnostic cardiac catheterization tentatively scheduled at [facility] July 05, 2022. Patient was watching television last night when she experienced chest tightness and palpitations. Patient compliant with home medications. Patient currently comfortable. 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 Diagnosis Chest pain Abnormal outpatient stress test Obesity Poorly controlled hyperlipidemia Discharge Exam Appears well, no acute distress Respiratory Breathing comfortably on room air, no wheezing/rhonchi/rales Cardiovascular Regular rate and rhythm, no murmurs/rubs/gallops Gastrointestinal (Abdomen) Soft, non tender, non distended Musculoskeletal No edema Discharge Data Allergies Allergy/AdvReac Type Severity Reaction Status Date / Time Siermlc-QOC-RfP Reductase AdvReac Intermediate Cramping Verified 06/12/22 23:46 Inhibitor of the [Jcbvhzg-Tgp-Ytt Reductase Muscles Inhibitor] Consultations 06/13/22 04:35 ED Decision to Admit Stat 06/13/22 08:35 Consult Cardiology Routine Procedures Performed Operation Date: 06/14/22 12:00 Actual Procedures p Cineradiography w/Routine Exam - Cesar Dove DO s Cath, Coronaries ONLY (no LV) - Cesar Dove DO Ordered Studies 06/14/22 06:35 CL Cath Imgs for PACS use only Routine Hospital Course (1) Chest pain: Plan Ms Sheela Martinez is a 56 year old female with history of paroxysmal A fib on Eliquis, chronic diastolic CHF, morbid obesity, hyperlipidemia and statin intolerance was admitted 06/13 for chest pressure with recent abnormal outpatient stress test. Her eliquis was held and she was placed on a heparin drip. She underwent cardiac catheterization 06/14 which revealed widely patent coronary arteries. She remained symptom free while in the hospital. She was discharged home in stable condition with plan for follow up with Cardiology in 2 weeks. She was recently started on PCSK 9 inhibitor for her hyperlipidemia due to statin intolerance. Her medications are unchanged at discharge. She may resume her Eliquis the following day (06/15). Total Time Total Time Spent Total Time Spent (In Minutes): 35 Discharge Plan Discharge Items Patient Disposition: Home - Self-Care Reason For Visit: CP Discharge Diagnosis: Chest pain Hyperlipidemia Condition on Discharge: Good Activity: As commented below Lifting: No more than 5 pounds Non-emergency contact: Primary Care Provider and Senior Research Executive Call non-emergency contact if: you have any medication questions and your symptoms worsen Follow-up/Referrals: Clinton Avilez MD [Primary Care Provider] - (Date & Time 06/19/2022 2:20 PM Provider Clinton Avilez MD Department [facility] ) Nickie Rene PA-C [Physician Electromedical Service Engineer] - (Date & Time 06/29/2022 3:00 PM Provider Nickie Rene PA-C Department Cardiology, [facility] ) Diet: Heart Healthy Addtl Attending Provider Instructions: You can resume Eliquis Thursday 06/15. Please follow up with Cardiology for management of your elevated cholesterol and triglyceride level and A fib Your cardiac cath here is normal Pending Studies at Discharge: No Stand-Alone Forms: My [facility], Work/School Release, Smoking Cessation Medications and DC Order Prescriptions: Continued aspirin [Marina Low Dose Aspirin] 81 mg Tablet,Delayed Release (Dr/Ec) 81 mg PO QAM metoprolol succinate 50 mg Tablet Extended Release 24 Hr 50 mg PO BID 30 Days Qty: 60 1RF spironolactone 25 mg Tablet 25 mg PO DAILY 30 Days Qty: 30 1RF Eliquis 5 mg Tablet 5 mg PO BID 30 Days Qty: 60 1RF Discharge Orders: Discharge Order (Routine); Ordered 06/14/22 Ordered By: Xochitl Kruger/Other Patient Handouts: Cardiac Catheterization Dc Admission Data Admit Date/Time: 06/13/22 05:14 Attending Provider: Xochitl Wall Admit Provider: Ben Castillo Primary Care Provider: Clinton Avilez Other Providers: Ben Castillo ; Cesar Dove
== END 2022-06-14 17:34 | disposition home or self-care (01) ==
LOC: ED 22:45 → 2S 22:45
PROC: CLB.CCO (2022-06-14 12:00)